=== PATIENT | female | born 1955 | race Caucasian/White ===

== ENCOUNTER 2022-01-17 11:43 | Outpatient (CLI) | payer MEDICARE, SELFPAY ==
--- NOTE | 2022-01-17 13:46 | W.ANESCHARGE ---
Anesthesia Charges Start Date/Time Anesthesia Start Date: 01/17/22 Anesthesia Start Time: 12:45 Stop Date/Time Anesthesia Stop Date: 01/17/22 Anesthesia Stop Time: 13:40 Summary Emergency: No
== END 2022-01-17 11:44 | disposition home or self-care (01) ==
LOC: OP CLINIC 11:46
PROVIDERS: PCP Nurse Practitioner Family; Visit Provider Surgery
DX: Z12.11 Encounter for screening for malignant neoplasm of colon (principal); K63.5 Polyp of colon; K64.8 Other hemorrhoids; Z83.71 Family history of colonic polyps
CPT/HCPCS: 00811; 45385; 88305; J2704

== ENCOUNTER 2022-10-10 10:52 | Outpatient (CLI) | payer MEDICARE, SELFPAY | END 2022-10-10 10:53 | disposition home or self-care (01) | PROVIDERS: PCP Nurse Practitioner Family; Visit Provider Nurse Practitioner Family | DX: E78.5 Hyperlipidemia, unspecified (principal); E03.9 Hypothyroidism, unspecified; I10 Essential (primary) hypertension | CPT/HCPCS: 80053; 80061; 84443; 85025 ==

== ENCOUNTER 2023-01-10 14:26 | Outpatient (CLI) | payer MEDICARE, SELFPAY ==
--- NOTE | 2023-01-10 14:40 | CRLHL7_ITS ---
For Patients: As a result of the Century Cures Act, medical imaging exams and procedure reports are released immediately into your electronic medical record. You may view this report before your referring provider. If you have questions, please contact your health care provider. BILATERAL SCREENING MAMMOGRAM WITH COMPUTER-AIDED DETECTION AND TOMOSYNTHESIS TECHNIQUE: CC and MLO views were obtained. These mammographic images have been obtained using full-field digital technique. These mammographic images were interpreted with the benefit of computer-aided detection. Breast Tomosynthesis was used in this interpretation. COMPARISON FILM: 06/25/21, 04/18/20, 04/10/18. FINDINGS: There are scattered areas of fibroglandular density IMPRESSION: There is no radiographic evidence for malignancy. ASSESSMENT: BI-RADS Category 1: Negative RECOMMENDATION: Routine screening mammogram in 1 year. A lay language report of this examination will be provided to the patient. Marcial Floyd M.D. Diagnostic Radiologist [email or web address] RIC/Dictated by: Marcial Floyd MD @ 01/13/2023 12:25:00 PM (Electronically Signed)
== END 2023-01-10 14:27 | disposition home or self-care (01) ==
LOC: MAMMO 14:27
PROVIDERS: PCP Nurse Practitioner Family; Visit Provider Nurse Practitioner Family
DX: Z12.31 Encounter for screening mammogram for malignant neoplasm of breast (principal)
CPT/HCPCS: 77063; 77067

== ENCOUNTER 2023-06-18 14:13 | Outpatient (CLI) | payer OTHER, SELFPAY ==
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
--- OUTSIDE RECORDS SUMMARY | 2023-06-18 14:15 | XMS_ITS | Referral Summary ---
Author Name Unknown Organization [facility] Address [address] [place] [address] Care Team Providers Care Agronomy Supervisor Name Role Phone Elsewhere, Pcp Primary Care Provider Unavailabl e Source Comments Patient records contain information from all sites at [facility]. For routine questions regarding patient records, call [phone] during business hours, M-F 8:00 AM - 5:00 PM Central Time. Record requests for emergency care only can be directed to [phone] at any time.[facility] Encounters Date Type Department Care Team Description 05/16/2023 11:11 AM MARKETING DATABASE ANALYST - 05/16/2023 2:39 PM [facility] Emergency [facility] Emergency Department [address] [place] [phone] Sanya Yates M.D. Abdominal Pain (Primary Dx); Constipation Discharge Disposition: Home or Self Care from Last 3 Months Allergies Active Allergy Reactions Criticality Noted Date Comments Penicillins Hives (Reselect Reaction),Rash Medium 02/27/2006 Sulfa (Sulfonamide Antibiotics) GI intolerance 02/27/2006 Vancomycin Anaphylaxis,Hives (Reselect Reaction) High 02/19/2010 Medications Medication Sig Dispensed Refills Start Date End Date Status DULoxetine (CYMBALTA) [address] capsule Take 60 mg by mouth daily. 0 Active levothyroxine (SYNTHROID, LEVOTHROID) 112 mcg tablet Take 112 mcg by mouth every morning before breakfast. 0 Active esomeprazole (NexIUM) [address] capsule Take 20 mg by mouth every morning before breakfast. 0 Active gabapentin (NEURONTIN) 100 mg capsule Take 100 mg by mouth daily. 0 Active gabapentin (NEURONTIN) 100 mg capsule Take 300 mg by mouth at bedtime. 0 Active amitriptyline (ELAVIL) 50 mg tablet Take 50 mg by mouth at bedtime. 0 Active verapamiL (VERELAN) 180 mg 24 hr capsule Take 180 mg by mouth daily. 0 Active linaCLOtide (LINZESS) 145 mcg capsule Take 145 mcg by mouth every morning before breakfast. 0 Active acetaminophen (TYLENOL 8 HR) 650 mg ER tablet Take 1,300 mg by mouth every 8 (eight) hours. 0 Active Active Problems No known active problems Social History Tobacco Use Types Packs/Day Years Used Date Smoking Tobacco: Never Smokeless Tobacco: Never Alcohol Use Standard Drinks/Week Comments Yes 0 (1 standard drink = 0.6 oz pur e alcohol) 1-2 a year Nutrition Answer Date Recorded Nutrition: EVOO Fat Source Unknown 04/29 Nutrition: Servings of Fruits/Vegetables per Day Not on file 04/29/2020 Dental Answer Date Recorded Dental: Regular Dentist Unknown 04/29/19 21 Sex and Gender Information Value Date Recorded Sex Assigned at Not on file Gender Identity Not on file Sexual Orientation Not on file Last Filed Vital Signs Vital Sign Reading Time Taken Comments Blood Pressure 130/65 05/16/2023 2:30 PM MARKETING DATABASE ANALYST Pulse 66 05/16/2023 2:30 PM MARKETING DATABASE ANALYST Temperature 36.4 ??C (97.5 ??F) 05/16/2023 2:30 PM CS T Respiratory Rate 18 05/16/2023 2:30 PM MARKETING DATABASE ANALYST Oxygen Saturation 96% 05/16/2023 2:30 PM MARKETING DATABASE ANALYST Inhaled Oxygen Concentration - - Weight 91.3 kg (201 lb 4.5 oz) 05/16/2023 11:12 AM MARKETING DATABASE ANALYST Height 157.7 cm (5' 2.09) 11/13/2020 4:35 PM CD T Body Mass Index 36.71 11/13/2020 4:35 PM CDT Plan of Treatment Upcoming Encounters Date Type Department Care Team (Late st Contact Info) Description 06/23/2023 5:45 PM CDT Appointment Department of Radiology, [facility], in [place], [place] [address] [place] [address] Mahnaz Rivera P.A. [address] [address] [place] [phone] Procedures Procedure Name Priority Date/Time Associated Diagnosis Comments TROPONIN T, 2H/6H, 5TH GEN, P Timed 05/16/2023 1:39 PM MARKETING DATABASE ANALYST CT ABDOMEN PELVIS WITH IV CONTRAST RAD - Semiurgent (Fast; most ED patients; some inpatients) 05/16/2023 1:25 PM MARKETING DATABASE ANALYST TROPONIN T, BASELINE, 5TH GEN, P STAT 05/16/2023 11:34 AM MARKETING DATABASE ANALYST THYROID-STIMULATIN G HORMONE-SENSITIVE (S-TSH) STAT 05/16/2023 11:34 AM MARKETING DATABASE ANALYST PROTHROMBIN TIME (PT), P STAT 05/16/2023 11:34 AM MARKETING DATABASE ANALYST LIPASE, S/P STAT 05/16/2023 11:34 AM MARKETING DATABASE ANALYST LACTATE, B/P STAT 05/16/2023 11:34 AM MARKETING DATABASE ANALYST HEPATIC FUNCTION PANEL, S STAT 05/16/2023 11:34 AM MARKETING DATABASE ANALYST BASIC METABOLIC PANEL, S/P STAT 05/16/2023 11:34 AM MARKETING DATABASE ANALYST CBC WITH DIFFERENTIAL, B STAT 05/16/2023 11:34 AM MARKETING DATABASE ANALYST ECG STAT 05/16/2023 11:21 AM MARKETING DATABASE ANALYST from Last 3 Months Results * (ABNORMAL) Troponin T, 2h/6h, 5th Gen (05/16/2023 1:39 PM MARKETING DATABASE ANALYST) Troponin T, 2 hr, 5th gen 11(H) <=10 ng/L 05/16/2023 2:08 PM MARKETING DATABASE ANALYST STMA 2H Delta 0 ng/L 05/16/2023 2:08 PM MARKETING DATABASE ANALYST STMA 2H Delta Interp Not Changing 05/16/2023 2:08 PM MARKETING DATABASE ANALYST STMA Troponin T, 6 hr, 5th gen CANCELED ng/L 05/16/2023 2:08 PM MARKETING DATABASE ANALYST STMA Comment:Result canceled by t he ancillary. 6H Delta CANCELED ng/L 05/16/2023 1:59 PM MARKETING DATABASE ANALYST STMA Comment:Result canceled by t darling ancillary. 6H Delta % CANCELED % 05/16/2023 1:59 PM MARKETING DATABASE ANALYST STMA Comment:Result canceled by t darling ancillary. Blood (Blood, Venous) 05/16/2023 1:39 PM MARKETING DATABASE ANALYST 05/16/2023 1:43 PM MARKETING DATABASE ANALYST Narrative [facility] - 05/16/2023 2:08 PM MARKETING DATABASE ANALYST Specimen Information: Specimen ID: [id number] Specimen Type: Blood Specimen Collection Start Date: 05/16/2023 ??1:39 PM Specimen Received Date: 05/16/2023 ??1:43 PM Specimen ID: [id number] Specimen Type: Blood Specimen Collection Start Date: 05/16/2023 ??2:08 PM Specimen Received Date: 05/16/2023 ??2:08 PM Sanya Yates M.D. LAB BLOOD TROPONIN [facility] [address] [place] [address], [facility] [address] [place] [address] * CT Abdomen Pelvis with IV Contrast (05/16/2023 1:25 PM MARKETING DATABASE ANALYST) Anatomical Region Laterality Modality Abdomen, Pelvis, Abdominal R ST LOS, Abdominal ARZ LOS, Abdominal FLA LOS N/A Computed Tomograp hy, Computed Tomography 05/16/2023 1:23 PM MARKETING DATABASE ANALYST Impressions 05/16/2023 1:46 PM MARKETING DATABASE ANALYST No acute findings in the abdomen or pelvis. Narrative 05/16/2023 1:46 PM MARKETING DATABASE ANALYST EXAM: ??CT ABDOMEN PELVIS WITH IV CONTRAST COMPARISON: ??CT abdomen/pelvis from 11/13/2020 FINDINGS: ?? Cholecystectomy. Stable small 3 mm nonobstructing stone in the inferior pole of the left kidney. No hydronephrosis. Tiny esophageal hiatal hernia. Moderately increased colonic fecal burden. Degenerative changes of the spine. Mild bibasilar subsegmental atelectasis. Decreased size of a 5 mm pulmonary nodule in the left lower lobe (3/6), previously 6 mm. Stable other tiny sub-3 mm nodule in the right lower lobe (3/5). Calcified pulmonary granulomas. Procedure Note Jere Valencia M.D. - 05/16/2023 EXAM: CT ABDOMEN PELVIS WITH IV CONTRAST COMPARISON: CT abdomen/pelvis from 11/13/2020 FINDINGS: Cholecystectomy. Stable small 3 mm nonobstructing stone in the inferiorpole of the left kidney. No hydronephrosis. Tiny esophageal hiatal hernia.Moderately increased colonic fecal burden. Degenerative changes of thespine. Mild bibasilar subsegmental atelectasis. Decreased size of a 5 mmpulmonary nodule in the left lower lobe (3/6), previously 6 mm. Stableother tiny sub-3 mm nodule in the right lower lobe (3/5). Calcifiedpulmonary granulomas. IMPRESSION: No acute findings in the abdomen or pelvis. Stacy Guzman P.A.-C., M.S. IMG CT PROCED URES * (ABNORMAL) Troponin T, Baseline, 5th gen (05/16/2023 11:34 AM MARKETING DATABASE ANALYST) [facility] Troponin T, Baseline, 5th gen 11(H) <=10 ng/L 05/16/2023 12:53 PM MARKETING DATABASE ANALYST [facility] Blood (Blood, Venous) 05/16/2023 11:34 AM MARKETING DATABASE ANALYST 05/16/2023 12:32 PM MARKETING DATABASE ANALYST Sanya Yates M.D. LAB BLOOD TROPONIN [facility] [address] [place] [address], [facility] [address] [place] [address] * Hepatic Function Panel (05/16/2023 11:34 AM MARKETING DATABASE ANALYST) [facility] Bilirubin, Total, S 0.4 0.0 - 1.2 mg/dL 05/16/2023 12:43 PM MARKETING DATABASE ANALYST DTL Bilirubin, Direct, S CANCELED mg/dL 10/2023 12:45 PM MARKETING DATABASE ANALYST DTL Comment: Specimen was hemolyzed. Result canceled by the ancillary. Aspartate Aminotransferase (AST), S CANCELED U/L 05/16/2023 12:46 PM MARKETING DATABASE ANALYST DTL Comment: Specimen was hemolyzed. Result canceled by the ancillary. Alanine Aminotransferase (ALT), S 15 7 - 45 U/L 05/16/2023 12:43 PM MARKETING DATABASE ANALYST DTL Alkaline Phosphatase, S 64 35 - 104 U/L 05/16/2023 12:43 PM MARKETING DATABASE ANALYST DTL Albumin, S 4.3 3.5 - 5.0 g/dL 05/16/2023 12:43 PM MARKETING DATABASE ANALYST DTL Protein, Total, S 6.4 6.3 - 7.9 g/dL 05/16/2023 12:43 PM MARKETING DATABASE ANALYST DTL Blood (Blood, Venous) 05/16/2023 11:34 AM MARKETING DATABASE ANALYST 05/16/2023 12:00 PM MARKETING DATABASE ANALYST Stacy Guzman P.A.-C. M.S. LAB BLOOD ADD -ON [address] [place] [address] * Prothrombin Time (PT) (05/16/2023 11:34 AM MARKETING DATABASE ANALYST) Prothrombin Time, P 10.3 9.4 - 12.5 sec 05/16/2023 11:47 AM MARKETING DATABASE ANALYST [facility] INR 0.9 0.9 - 1.1 05/16/2023 11:47 AM MARKETING DATABASE ANALYST [facility] Comment: ----ADDITIONAL INFORMATION---- Standard intensity warfarin therapeutic range: 2.0 to 3.0 ?? High intensity warfarin therapeutic range: 2.5 to 3.5 Blood (Blood, Venous) 05/16/2023 11:34 AM MARKETING DATABASE ANALYST 05/16/2023 11:39 AM MARKETING DATABASE ANALYST Stacy Guzman P.A.-C. M.S. LAB BLOOD ADD -ON [facility] [address] [place] [address], [facility] STMA [facility] [address] [place] [address] * CBC with Differential, Blood (05/16/2023 11:34 AM MARKETING DATABASE ANALYST) Hemoglobin 13.7 11.6 - 15.0 g/dL 05/16/2023 11:41 AM MARKETING DATABASE ANALYST ST[facility] Hematocrit 42.4 35.5 - 44.9 % 05/16/2023 11:41 AM MARKETING DATABASE ANALYST [facility] Erythrocytes 4.60 3.92 - 5.13 x10(12)/L 05/16/2023 11:41 AM MARKETING DATABASE ANALYST [facility] MCV 92.2 78.2 - 97.9 fL 05/16/2023 11:41 AM MARKETING DATABASE ANALYST [facility] RBC Distrib Width 12.5 12.2 - 16.1 % 05/16/2023 11:41 AM MARKETING DATABASE ANALYST [facility] Platelet Count 243 157 - 371 x10(9)/L 05/16/2023 11:41 AM MARKETING DATABASE ANALYST [facility] Leukocytes 5.6 3.4 - 9.6 x10(9)/L 05/16/2023 11:41 AM MARKETING DATABASE ANALYST [facility] Neutrophils 3.05 1.56 - 6.45 x10(9)/L 05/16/2023 11:41 AM MARKETING DATABASE ANALYST [facility] Lymphocytes 2.06 0.95 - 3.07 x10(9)/L 05/16/2023 11:41 AM MARKETING DATABASE ANALYST [facility] Monocytes 0.30 0.26 - 0.81 x10(9)/L 05/16/2023 11:41 AM MARKETING DATABASE ANALYST [facility] Eosinophils 0.11 0.03 - 0.48 x10(9)/L 05/16/2023 11:41 AM MARKETING DATABASE ANALYST [facility] Basophils 0.05 0.01 - 0.08 x10(9)/L 05/16/2023 11:41 AM MARKETING DATABASE ANALYST [facility] Blood (Blood, Venous) 05/16/2023 11:34 AM MARKETING DATABASE ANALYST 05/16/2023 11:39 AM MARKETING DATABASE ANALYST Stacy Guzman P.A.-C. M.S. LAB BLOOD ADD -ON [facility] [address] [place] [address], [facility] [address] [place], [place] [phone] [place] [address] [address] [place] [address] * S-TSH (Thyroid-Stimulating Hormone - Sensitive) (05/16/2023 11:34 AM MARKETING DATABASE ANALYST) Pathologist [facility] TSH, Sensitive 2.7 0.3 - 4.2 mIU/L 05/16/2023 12:43 PM MARKETING DATABASE ANALYST DTL Blood (Blood, Venous) 05/16/2023 11:34 AM MARKETING DATABASE ANALYST 05/16/2023 12:00 PM MARKETING DATABASE ANALYST Stacy Guzman P.A.-C., M.S. LAB BLOOD ADD -ON Performing Organization Address City/[facility]/ZIP Co de Phone Number [facility] [address] [place] [address], [facility] [address] [place] [address] * Lipase (05/16/2023 11:34 AM MARKETING DATABASE ANALYST) Pathologist [facility] Lipase, S 19 13 - 60 U/L 05/16/2023 12:43 PM MARKETING DATABASE ANALYST DTL Blood (Blood, Venous) 05/16/2023 11:34 AM MARKETING DATABASE ANALYST 05/16/2023 12:00 PM MARKETING DATABASE ANALYST Stacy Guzman P.A.-C., M.S. LAB BLOOD ADD -ON [facility] [address] [place] [address], [facility] [address] [place] [address] * Lactate (05/16/2023 11:34 AM MARKETING DATABASE ANALYST) Lactate, P 0.9 0.5 - 2.2 mmol/L 05/16/2023 11:56 AM MARKETING DATABASE ANALYST ST[facility] Blood (Blood, Venous) 05/16/2023 11:34 AM MARKETING DATABASE ANALYST 05/16/2023 11:39 AM MARKETING DATABASE ANALYST Stacy Guzman P.A.-C. M.S. LAB BLOOD NON ADD-ON Performing Organization Address City/State/[facility] Co de Phone Number [facility] [address] [place] [address], [facility] STMA [facility] [address] [place] [address] * Basic Metabolic Panel (05/16/2023 11:34 AM MARKETING DATABASE ANALYST) Potassium, P 4.4 3.6 - 5.2 mmol/L 05/16/2023 12:00 PM MARKETING DATABASE ANALYST STMA Sodium, P 139 135 - 145 mmol/L 05/16/2023 12:00 PM MARKETING DATABASE ANALYST ST[facility] Chloride, P 104 98 - 107 mmol/L 05/16/2023 12:00 PM MARKETING DATABASE ANALYST ST[facility] Bicarbonate, P 27 22 - 29 mmol/L 05/16/2023 12:00 PM MARKETING DATABASE ANALYST ST[facility] Anion Gap, P 8 7 - 15 05/16/2023 12:00 PM MARKETING DATABASE ANALYST [facility] BUN (Blood Urea Nitrogen), P 19 6 - 21 mg/dL 05/16/2023 12:00 PM MARKETING DATABASE ANALYST [facility] Creatinine 0.86 0.59 - 1.04 mg/dL 05/16/2023 12:00 PM MARKETING DATABASE ANALYST [facility] Estimated GFR (eGFR) 74 >=60 mL/min/BSA 05/16/2023 12:00 PM MARKETING DATABASE ANALYST [facility] Comment: Estimated GFR calculated using the 2020 CKD_EPI creatinine equation. Calcium, Total, P 9.4 8.8 - 10.2 mg/dL 05/16/2023 12:00 PM MARKETING DATABASE ANALYST ST[facility] Glucose, P 91 70 - 140 mg/dL 05/16/2023 12:00 PM MARKETING DATABASE ANALYST [facility] Blood (Blood, Venous) 05/16/2023 11:34 AM MARKETING DATABASE ANALYST 05/16/2023 11:39 AM MARKETING DATABASE ANALYST Stacy Guzman P.A.-C., M.S. LAB BLOOD ADD -ON Performing Organization Address City/State/[facility] Co de Phone Number [facility] [address] [place] [address], [place] STMA [facility] [address] [place] [address] * ECG 12 Lead (05/16/2023 11:21 AM MARKETING DATABASE ANALYST) Ventricular Rate ECG/Min 65 BPM MUSE TN Interval 156 ms MUSE QRSD Interval 88 ms MUSE QT Interval 414 ms MUSE QTC Interval 430 ms MUSE P [place] 24 degrees MUSE R [place] -37 degrees MUSE T Wave [place] 37 degrees MUSE 05/16/2023 11:2 1 AM MARKETING DATABASE ANALYST 05/16/2023 11:33 AM MARKETING DATABASE ANALYST Impressions MUSE - 05/16/2023 11:33 AM MARKETING DATABASE ANALYST Normal sinus rhythm Left axis deviation Minimal voltage criteria for LVH, may be normal variant When compared with ECG of 24-DEC-2019 21:08, Vent. rate has decreased BY ??49 BPM Reviewed by ANA Alcantara Narrative Procedure Note Armin Mayen M.B.B.SGris - 05/16/2023 IMPRESSION: Normal sinus rhythm Left axis deviation Minimal voltage criteria for LVH, may be normal variant When compared with ECG of 24-DEC-2019 21:08, Vent. rate has decreased BY 49 BPM Reviewed by ANA Alcantara Stacy Guzman P.A.-C., M.S. ECG ORDERABLE S Performing Organization Address City/State/[facility] Co de Phone Number MUSE NA from Last 3 Months Care Teams Agronomy Supervisor Relationship Specialty Start Date End Date Elsewhere, Pcp PCP - General Internal Medicine 05/16/23
--- OUTSIDE RECORDS SUMMARY | 2023-06-18 14:15 | XMS_ITS ---
Author Name Unknown Organization [facility] Address [address] [place] [address] Care Team Providers Care Veneer Sawyer Name Role Phone Unavailable Unavailable Unavailable Surgery Details Not on file Complications Check Surgery Details section. Procedure Estimated Blood Loss Check Surgery Details section. Procedure Findings Check Surgery Details section. Procedure Specimens Taken Check Surgery Details section.
--- OUTSIDE RECORDS SUMMARY | 2023-06-18 14:15 | XMS_ITS | Encounter Summary ---
Author Name Unknown Organization [facility] Address [address] [place] [address] Care Team Providers Care Reel Assembler Name Role Phone Elsewhere, Pcp Primary Care Provider Unavailabl e Reason for Visit * Reason Comments Abdominal Pain Encounter Details Date Type Department Care Team (Late st Contact Info) Description 05/16/2023 11:11 AM MOLD POLISHER - 05/16/2023 2:39 PM MOLD POLISHER Emergency [facility] Emergency Department [address] [place] [address] Sanya Yates M.D. [address] [place] [address] Abdominal Pain (Primary Dx); Constipation Discharge Disposition: Home or Self Care Social History Tobacco Use Types Packs/Day Years [...] on file Sexual Orientation Not on file documented as of this encounter Last Filed Vital Signs Vital Sign Reading Time Taken Comments Blood Pressure 130/65 05/16/2023 2:30 PM MOLD POLISHER Pulse 66 05/16/2023 2:30 PM MOLD POLISHER Temperature 36.4 ??C (97.5 ??F) 05/16/2023 2:30 PM CS T Respiratory Rate 18 05/16/2023 2:30 PM MOLD POLISHER Oxygen Saturation 96% 05/16/2023 2:30 PM MOLD POLISHER Inhaled Oxygen Concentration - - Weight 91.3 kg (201 lb 4.5 oz) 05/16/2023 11:12 AM MOLD POLISHER Height - - Body Mass Index 36.71 11/13/2020 4:35 PM CDT documented in this encounter Discharge Instructions * Discharge Instructions* Sanya Yates M.D. - 05/16/2023 2:17 PM MOLD POLISHER 1. Hydrate well. Avoid caffeinated beverages if possible. 2. Continue your bowel regimen. You may add additional [id number] aids. 3. If you have not had a bowel movement by Friday reach out to your primary provider for additionalguidance on constipation. 4. Return immediately for any severe pain, vomiting, or any other severe symptoms. POLISHER * Attachments The following attachments cannot be sent through Care Everywhere. * Abdominal Pain Adult (Malaysian) * Constipation Adult (Malaysian) documented in this encounter Medications at Time of Discharge Medication Sig Dispensed Refills Start Date End Date DULoxetine (CYMBALTA) [address] capsule Take 60 mg by mouth daily. 0 esomeprazole (NexIUM) [address] capsule Take 20 mg by mouth every morning before breakfast. 0 gabapentin (NEURONTIN) 100 mg capsule Take 100 mg by mouth daily. 0 gabapentin (NEURONTIN) 100 mg capsule Take 300 mg by mouth at bedtime. 0 levothyroxine (SYNTHROID, LEVOTHROID) 112 mcg tablet Take 112 mcg by mouth every morning before breakfast. 0 linaCLOtide (LINZESS) 145 mcg capsule Take 145 mcg by mouth every morning before breakfast. 0 verapamiL (VERELAN) 180 mg 24 hr capsule Take 180 mg by mouth daily. 0 acetaminophen (TYLENOL 8 HR) 650 mg ER tablet Take 1,300 mg by mouth every 8 (eight) hours. 0 amitriptyline (ELAVIL) 50 mg tablet Take 50 mg by mouth at bedtime. 0 documented as of this encounter Progress Notes * Stacy Guzman P.A.-C., M.S. - 05/16/2023 11:19 AM CST CC/HPI/Pertinent ROS: Patient is a 67 y.o. female with past history of IBS, hyperlipidemia, hypertension, hypothyroidism,cholecystectomy, presents to the emergency department today for evaluation of abdominal pain. Patient notes diffuse abdominal pain. She reports constipation with very small bowel movements despite multiple medications and suppositories for about 2 weeks. She notes associated dizziness and nausea but no vomiting. Brief PE: BP 136/73 (BP Location: Right arm, Patient Position: Sitting) Pulse 81 Temp 36.4 ??C (Oral) Resp 16 Wt 91.3 kg SpO2 97% BMI 36.71 kg/m?? Gen: well appearing, NAD A&O X3 Generalized abdominal tenderness with mild distension Normal gait, no obvious focal deficits Assessment/Plan: 67 y.o. female presenting to the ED for evaluation of abdominal pain, constipation. Plan: EKG, CT abdomen/pelvis with contrast, and labs ordered, IV access will be obtained and patient will be kept NPO Stacy Guzman P.A.-C., M.S. 05/16/23 1121 POLISHER documented in this encounter ED Notes * Sanya Yates M.D. - 05/16/2023 12:48 PM CST SUBJECTIVE CHIEF COMPLAINT/REASON FOR VISIT Abdominal Pain HISTORY OF PRESENT ILLNESS 67-year-old female status post cholecystectomy and breast reduction with a history of irritable bowel presents with abdominal pain x3 days. This pain came on after 8 days without a bowel movement. She reports a bloated feeling and pain across her upper abdomen. She has had nausea but no vomiting. She has been able to eat and drink. She has had no urinary symptoms. She denies chest pain or shortness of breath. No fevers chills or sweats. No urinary symptoms. REVIEW OF SYSTEMS Constitutional: Negative for chills and fever. Respiratory: Negative for chest tightness, orthopnea and shortness of breath. Gastrointestinal: Positive for abdominal distention, abdominal pain, constipation and nausea. Negative for blood in stool, diarrhea, rectal pain and vomiting. Genitourinary: Negative for dysuria, flank pain and pelvic pain. Musculoskeletal: Negative for extremity pain. Neurological: Negative for dizziness and numbness. OBJECTIVE Initial Vitals Temperature 05/16/23 1113 36.4 ??C Pulse Rate 05/16/23 1113 81 Heart Rate -- Resp Rate 05/16/23 1113 16 Blood Pressure 05/16/23 1113 136/73 SpO2 05/16/23 1113 97 % Pain Score 05/16/23 1116 7 PHYSICAL EXAMINATION Constitutional: Nursing note and vitals reviewed. No distress. HENT: Mouth/Throat: Oropharynx is clear and moist. Mucous membranes are moist. Eyes: Conjunctivae and EOM are normal. Pupils are equal, round, and reactive to light. Neck: Neck supple. Cardiovascular: Normal rate, regular rhythm and normal heart sounds. Exam reveals no gallop and no friction rub. Pulses are palpable. No murmur heard. Pulmonary/Chest: Effort normal and breath sounds normal. There is normal air entry. No respiratory distress. Abdominal: Soft. Normal appearance and bowel sounds are normal. exhibits distension.exhibits no mass. There is no abdominal tenderness. There is no rigidity, no rebound, no guarding and no CVA tenderness. No hernia. Musculoskeletal: General: No deformity or edema. Cervical back: Normal range of motion and neck supple. Neurological: Alert and oriented to person, place, and time. Skin: Skin is warm. No rash noted. Psychiatric: She has a normal mood and affect. ASSESSMENT/PLAN Assessment and Plan Impression: 1. Abdominal pain 2. Constipation. Differential includes symptomatic cholelithiasis, acute cholecystitis, choledocholithiasis, pancreatitis, gastritis, reflux, colitis, hepatitis, bowel obstruction, constipation, diverticulitis, appendicitis, ACS, among others. ECG shows no acute ischemic changes. This is personally reviewed by me and is unchanged from prior. Basic labs show normal renal function, normal electrolytes and a normal CBC. Lipase lactate an LFTs are normal. Troponin pending. Given the duration of her symptoms we will obtain CT to rule out a more ominous cause than constipation alone. If her CT has no acute findings we will address her constipation with adjustment in her homegoing regimen.. Addendum: CT shows no acute findings. She does have some increased stool burden particularly in hertransverse colon. Labs satisfactory. Delta troponin negative. She will increase her hydration, avoid dehydration and add additional [id number] aids to her regimen for constipation. If she has not having success by early next week she will reach out to her primary provider for additional guidance. Plan of care, indications for immediate return, and plans for follow-up all discussed. All questions answered. Final Diagnoses: as of 05/17/23 0744 Abdominal Pain Constipation Sanya Yates M.D. 05/17/23 0745 POLISHER * Fabi Todd R.N. - 05/16/2023 11:15 AM CST Patient presents to the ED with diffuse abdominal pain that has been present x 8 days. History of constipation, she is have small BMs, but last normal BM was approximately 2 weeks ago. Associated nausea. Fabi Todd R.N. 05/16/23 1115 POLISHER documented in this encounter Plan of Treatment Upcoming Encounters Date Type Department Care Team (Late st Contact Info) Description 06/23/2023 5:45 PM CDT Appointment Department of Radiology, [facility], in [place], [place] [address] [place] [address] Mahnaz Rivera P.A. [address] [address] [place] [address] documented as of this encounter Procedures Procedure Name Priority Date/Time Associated Diagnosis Comments TROPONIN T, 2H/6H, 5TH GEN, P Timed 05/16/2023 1:[address] ABDOMEN PELVIS WITH IV CONTRAST RAD - Semiurgent (Fast; most ED patients; some inpatients) 05/16/2023 1:25 PM MOLD POLISHER TROPONIN T, BASELINE, 5TH GEN, P STAT 05/16/2023 11:34 AM MOLD POLISHER HEPATIC FUNCTION PANEL, S STAT 05/16/2023 11:34 AM MOLD POLISHER PROTHROMBIN TIME (PT), P STAT 05/16/2023 11:34 AM MOLD POLISHER CBC WITH DIFFERENTIAL, B STAT 05/16/2023 11:34 AM MOLD POLISHER THYROID-STIMULATIN G HORMONE-SENSITIVE (S-TSH) STAT 05/16/2023 11:34 AM MOLD POLISHER LIPASE, S/P STAT 05/16/2023 11:34 AM MOLD POLISHER LACTATE, B/P STAT 05/16/2023 11:34 AM MOLD POLISHER BASIC METABOLIC PANEL, S/P STAT 05/16/2023 11:34 AM MOLD POLISHER ECG STAT 05/16/2023 11:21 AM MOLD POLISHER documented in this encounter Results * (ABNORMAL) Troponin T, 2h/6h, 5th Gen (05/16/2023 1:39 PM MOLD POLISHER) Troponin T, 2 hr, 5th gen 11(H) <=10 ng/L 05/16/2023 2:08 PM MOLD POLISHER STMA 2H Delta 0 ng/L 05/16/2023 2:08 PM MOLD POLISHER STMA 2H Delta Interp Not Changing 05/16/2023 2:08 PM MOLD POLISHER STMA Troponin T, 6 hr, 5th gen CANCELED ng/L 05/16/2023 2:08 PM MOLD POLISHER STMA Comment:Result canceled by t he ancillary. 6H Delta CANCELED ng/L 05/16/2023 1:59 PM MOLD POLISHER STMA Comment:Result canceled by t he ancillary. 6H Delta % CANCELED % 05/16/2023 1:59 PM MOLD POLISHER STMA Comment:Result canceled by t he ancillary. Blood (Blood, Venous) 05/16/2023 1:39 PM MOLD POLISHER 05/16/2023 1:43 PM MOLD POLISHER Narrative [facility] - 05/16/2023 2:08 PM MOLD POLISHER Specimen Information: Specimen ID: [id number] Specimen Type: Blood Specimen Collection Start Date: 05/16/2023 ??1:39 PM Specimen Received Date: 05/16/2023 ??1:43 PM Specimen ID: [id number] Specimen Type: Blood Specimen Collection Start Date: 05/16/2023 ??2:08 PM Specimen Received Date: 05/16/2023 ??2:08 PM Sanya Yates M.D. LAB BLOOD TROPONIN [facility] [address] [place] [address], [facility] [address] [place] [address] * CT Abdomen Pelvis with IV Contrast (05/16/2023 1:25 PM MOLD POLISHER) Anatomical Region Laterality Modality Abdomen, Pelvis, Abdominal R ST LOS, Abdominal ARZ LOS, Abdominal FLA LOS N/A Computed Tomograp hy, Computed Tomography 05/16/2023 1:23 PM MOLD POLISHER Impressions 05/16/2023 1:46 PM MOLD POLISHER No acute findings in the abdomen or pelvis. Narrative 05/16/2023 1:46 PM MOLD POLISHER EXAM: ??CT ABDOMEN PELVIS WITH IV CONTRAST [...] T, Baseline, 5th gen (05/16/2023 11:34 AM MOLD POLISHER) [facility] Troponin T, Baseline, 5th gen 11(H) <=10 ng/L 05/16/2023 12:53 PM MOLD POLISHER [facility] Blood (Blood, Venous) 05/16/2023 11:34 AM MOLD POLISHER 05/16/2023 12:32 PM MOLD POLISHER Sanya Yates M.D. LAB BLOOD TROPONIN Performing Organization Address City/[facility]/ZIP Co de Phone Number [facility] [address] STMA [facility] [address] [place] [address] * S-TSH (Thyroid-Stimulating Hormone - Sensitive) (05/16/2023 11:34 AM MOLD POLISHER) [facility] TSH, Sensitive 2.7 0.3 - 4.2 mIU/L 05/16/2023 12:43 PM MOLD POLISHER DTL Blood (Blood, Venous) 05/16/2023 11:34 AM MOLD POLISHER 05/16/2023 12:00 PM MOLD POLISHER Stacy Guzman P.A.-C., M.S. LAB BLOOD ADD -ON Performing Organization Address City/[facility]/ZIP Co de Phone Number [facility] [address] DTL [facility] [address] [place] [address] * Prothrombin Time (PT) (05/16/2023 11:34 AM MOLD POLISHER) Prothrombin Time, P 10.3 9.4 - 12.5 sec 05/16/2023 11:47 AM MOLD POLISHER [facility] INR 0.9 0.9 - 1.1 05/16/2023 11:47 AM MOLD POLISHER [facility] Comment: ----ADDITIONAL INFORMATION---- Standard intensity warfarin therapeutic range: 2.0 to 3.0 ?? High intensity warfarin therapeutic range: 2.5 to 3.5 Blood (Blood, Venous) 05/16/2023 11:34 AM MOLD POLISHER 05/16/2023 11:39 AM MOLD POLISHER Stacy Guzman P.A.-C., M.S. LAB BLOOD ADD -ON [facility] [address] [place] [address] * Lipase (05/16/2023 11:34 AM MOLD POLISHER) Pathologist [facility] Lipase, S 19 13 - 60 U/L 05/16/2023 12:43 PM MOLD POLISHER DTL Blood (Blood, Venous) 05/16/2023 11:34 AM MOLD POLISHER 05/16/2023 12:00 PM MOLD POLISHER Stacy Guzman P.A.-C., M.S. LAB BLOOD ADD -ON Performing Organization Address City/[facility]/ZIP Co de Phone Number [facility] [address] DTL [facility] [address] [place] [address] * Lactate (05/16/2023 11:34 AM MOLD POLISHER) Lactate, P 0.9 0.5 - 2.2 mmol/L 05/16/2023 11:56 AM MOLD POLISHER [facility] Blood (Blood, Venous) 05/16/2023 11:34 AM MOLD POLISHER 05/16/2023 11:39 AM MOLD POLISHER Stacy Guzman P.A.-C., M.S. LAB BLOOD NON ADD-ON [facility] [address] [place] [address], [facility] STMA [facility] [address] [place] [address] * Hepatic Function Panel (05/16/2023 11:34 AM MOLD POLISHER) Bilirubin, Total, S 0.4 0.0 - 1.2 mg/dL 05/16/2023 12:43 PM MOLD POLISHER DTL Bilirubin, Direct, S CANCELED mg/dL 10/2023 12:45 PM MOLD POLISHER DTL Comment: Specimen was hemolyzed. Result canceled by the ancillary. Aspartate Aminotransferase (AST), S CANCELED U/L 05/16/2023 12:46 PM MOLD POLISHER DTL Comment: Specimen was hemolyzed. Result canceled by the ancillary. Alanine Aminotransferase (ALT), S 15 7 - 45 U/L 05/16/2023 12:43 PM MOLD POLISHER DTL Alkaline Phosphatase, S 64 35 - 104 U/L 05/16/2023 12:43 PM MOLD POLISHER DTL Albumin, S 4.3 3.5 - 5.0 g/dL 05/16/2023 12:43 PM MOLD POLISHER DTL Protein, Total, S 6.4 6.3 - 7.9 g/dL 05/16/2023 12:43 PM MOLD POLISHER DTL Blood (Blood, Venous) 05/16/2023 11:34 AM MOLD POLISHER 05/16/2023 12:00 PM MOLD POLISHER Stacy Guzman P.A.-C., M.S. LAB BLOOD ADD -ON [facility] [address] [place] [address], [facility] DTL [facility] [address] [place] [address] * Basic Metabolic Panel (05/16/2023 11:34 AM MOLD POLISHER) Pathologist [facility] Potassium, P 4.4 3.6 - 5.2 mmol/L 05/16/2023 12:00 PM MOLD POLISHER STMA Sodium, P 139 135 - 145 mmol/L 05/16/2023 12:00 PM MOLD POLISHER STMA Chloride, P 104 98 - 107 mmol/L 05/16/2023 12:00 PM MOLD POLISHER STMA Bicarbonate, P 27 22 - 29 mmol/L 05/16/2023 12:00 PM MOLD POLISHER STMA Anion Gap, P 8 7 - 15 05/16/2023 12:00 PM MOLD POLISHER STMA BUN (Blood Urea Nitrogen), P 19 6 - 21 mg/dL 05/16/2023 12:00 PM MOLD POLISHER STMA Creatinine 0.86 0.59 - 1.04 mg/dL 05/16/2023 12:00 PM MOLD POLISHER STMA Estimated GFR (eGFR) 74 >=60 mL/min/BSA 05/16/2023 12:00 PM MOLD POLISHER STMA Comment: Estimated GFR calculated using the 2020 CKD_EPI creatinine equation. Calcium, Total, P 9.4 8.8 - 10.2 mg/dL 05/16/2023 12:00 PM MOLD POLISHER STMA Glucose, P 91 70 - 140 mg/dL 05/16/2023 12:00 PM MOLD POLISHER STMA Blood (Blood, Venous) 05/16/2023 11:34 AM MOLD POLISHER 05/16/2023 11:39 AM MOLD POLISHER Stacy Guzman P.A.-C., M.S. LAB BLOOD ADD -ON [facility] [address] [place] [address], [facility] [address] [place] [address] * CBC with Differential, Blood (05/16/2023 11:34 AM MOLD POLISHER) Hemoglobin 13.7 11.6 - 15.0 g/dL 05/16/2023 11:41 AM MOLD POLISHER STMA Hematocrit 42.4 35.5 - 44.9 % 05/16/2023 11:41 AM MOLD POLISHER STMA Erythrocytes 4.60 3.92 - 5.13 x10(12)/L 05/16/2023 11:41 AM MOLD POLISHER STMA MCV 92.2 78.2 - 97.9 fL 05/16/2023 11:41 AM MOLD POLISHER STMA RBC Distrib Width 12.5 12.2 - 16.1 % 05/16/2023 11:41 AM MOLD POLISHER STMA Platelet Count 243 157 - 371 x10(9)/L 05/16/2023 11:41 AM MOLD POLISHER STMA Leukocytes 5.6 3.4 - 9.6 x10(9)/L 05/16/2023 11:41 AM MOLD POLISHER STMA Neutrophils 3.05 1.56 - 6.45 x10(9)/L 05/16/2023 11:41 AM MOLD POLISHER DHPM Lymphocytes 2.06 0.95 - 3.07 x10(9)/L 05/16/2023 11:41 AM MOLD POLISHER STMA Monocytes 0.30 0.26 - 0.81 x10(9)/L 05/16/2023 11:41 AM MOLD POLISHER STMA Eosinophils 0.11 0.03 - 0.48 x10(9)/L 05/16/2023 11:41 AM MOLD POLISHER STMA Basophils 0.05 0.01 - 0.08 x10(9)/L 05/16/2023 11:41 AM MOLD POLISHER STMA Blood (Blood, Venous) 05/16/2023 11:34 AM MOLD POLISHER 05/16/2023 11:39 AM MOLD POLISHER Stacy Guzman P.A.-C., M.S. LAB BLOOD ADD -ON [facility] [address] [place] [address], [facility] STMA [facility] [address] [place] [address] [facility] [address] [place] [address] * ECG 12 Lead (05/16/2023 11:21 AM MOLD POLISHER) Ventricular Rate ECG/Min 65 BPM MUSE IN Interval 156 ms MUSE QRSD Interval 88 ms MUSE QT Interval 414 ms MUSE QTC Interval 430 ms MUSE P [place] 24 degrees MUSE R [place] -37 degrees MUSE T Wave [place] 37 degrees MUSE 05/16/2023 11:2 1 AM MOLD POLISHER 05/16/2023 11:33 AM MOLD POLISHER Impressions MUSE - 05/16/2023 11:33 AM MOLD POLISHER Normal sinus rhythm Left axis deviation Minimal voltage criteria for LVH, may be normal variant When compared with ECG of 24-DEC-2019 21:08, Vent. rate has decreased BY ??49 BPM Reviewed by ANA Alcantara Narrative Procedure Note Armin Mayen M.B.BGrisS. - 05/16/2023 IMPRESSION: Normal sinus rhythm Left axis deviation Minimal voltage criteria for LVH, may be normal variant When compared with ECG of 24-DEC-2019 21:08, Vent. rate has decreased BY 49 BPM Reviewed by ANA Alcantara Stacy Scott Megan Leija, M.S. ECG ORDERABLE S MUSE NA documented in this encounter Visit Diagnoses Diagnosis Abdominal Pain- Primary Constipation documented in this encounter Administered Medications Inactive Administered Medications - up to 3 most recent administrations Medication Order MAR Action Action Date Dose Rate Site iohexoL 300 mg iodine/mL solution 1-200 mL (OMNIPAQUE) 1-200 mL, intravenous, Once in imaging, contrast, Starting on Fri05/16/23 at 1318, For 1 dose, Imaging Protocol Orders, Dose per Radiant Medication Guidelines Given 05/16/2023 1:19 PM MOLD POLISHER 140 mL sodium chloride (PF) 0.9 % injection 1-100 mL 1-100 mL, intravenous, Once, On Fri05/16/23 at 1319, For 1 dose, Imaging Protocol Orders, Dose per Radiant Medication Guidelines Given 05/16/2023 1:19 PM MOLD POLISHER 50 mL documented in this encounter Active and Recently Administered Medications Times are shown in MOLD POLISHER. Scheduled Medication Order 05/14/2023 05/15/2023 05/16/2023 sodium chloride (PF) 0.9 % injection 1-100 mL (COMPLETED) 1-100 mL, intravenous, Once, On Fri05/16/23 at 1319, For 1 dose, Imaging Protocol Orders, Dose per Radiant Medication Guidelines 1319 (Given - Provid er: Alexis S Rasmusson, R.N.) PRN Medication Order 05/14/2023 05/15/2023 05/16/2023 iohexoL 300 mg iodine/mL solution 1-200 mL (OMNIPAQUE) (COMPLETED) 1-200 mL, intravenous, Once in imaging, contrast, Starting on Fri05/16/23 at 1318, For 1 dose, Imaging Protocol Orders, Dose per Radiant Medication Guidelines 1319 (Given - Provid er: Alexis Llanos R.N.) documented in this encounter Care Teams Reel Assembler Relationship Specialty Start Date End Date Elsewhere, Pcp PCP - General Internal Medicine 05/16/23 documented as of this encounter
--- OUTSIDE RECORDS SUMMARY | 2023-06-18 14:15 | XMS_ITS | Clinical Summary ---
Author Name Unknown Organization [facility] Address [address] [place] [address] Care Team Providers Care Grain Miller Helper Name Role Phone Elsewhere, Pcp Primary Care Provider Unavailabl e Source Comments Patient records contain information from all sites at [facility]. For routine questions regarding patient records, call [phone] during business hours, M-F 8:00 AM - 5:00 PM Central Time. Record requests for emergency care only can be directed to [phone] at any time.[facility] Allergies Active Allergy Reactions Criticality Noted Date [...] Active Active Problems No known active problems Encounters Date Type Department Care Team Description 05/16/2023 11:11 AM PRODUCTION BROACHER - 05/16/2023 2:39 PM PRODUCTION BROACHER Emergency [facility] Emergency Department [address] [place] [address] Sanya Yates M.D. Abdominal Pain (Primary Dx); Constipation Discharge Disposition: Home or Self Care from Last 3 Months Social History Tobacco Use Types Packs/Day Years [...] Comments Blood Pressure 130/65 05/16/2023 2:30 PM PRODUCTION BROACHER Pulse 66 05/16/2023 2:30 PM PRODUCTION BROACHER Temperature 36.4 ??C (97.5 ??F) 05/16/2023 2:30 PM CS T Respiratory Rate 18 05/16/2023 2:30 PM PRODUCTION BROACHER Oxygen Saturation 96% 05/16/2023 2:30 PM PRODUCTION BROACHER Inhaled Oxygen Concentration - - Weight 91.3 kg (201 lb 4.5 oz) 05/16/2023 11:12 AM PRODUCTION BROACHER Height 157.7 cm (5' 2.09) 11/13/2020 4:35 PM CD T Body Mass Index 36.71 11/13/2020 4:35 PM CDT Plan of Treatment Upcoming Encounters Date Type Department Care Team (Late st Contact Info) Description 06/23/2023 5:45 PM CDT Appointment Department of Radiology, [facility], in [place], [place] [address] [place] [address] Mahnaz Rivera P.A. [address] [address] [place] [phone] Health Maintenance Due Date Last Done Comments Bone Density Scan (Osteoporo sis Screen) 1954 CT Colonography 1954 Cologuard 1955 FIT 1955 Hepatitis C Screening 1955 Zoster Vaccines (1 of 2) 2004 Colonoscopy 09/05/2015 09/04/2005 Colorectal Cancer Screening 09/05/2015 Mammogram 04/18/2021 04/18/2020, 02/0 03/2018, 02/10/2017, Additional history exists Depression Screening (Annual PHQ-2) 03/10/2023 Fall Risk Screen (Annual) 03/10/2023 Thyroid Stimulating Hormone (TSH) test for thyroid function 05/15/2024 05/16/2023, 04/27/2020, 02/02/2019, Additional history exists Fasting Glucose for Diabetes Screening 05/15/2026 05/16/2023, 11/13/2020, 12/24/2019, Additional history exists DTaP,Tdap,and Td Vaccines (3 - Td or Tdap) 02/17/2030 02/18/2020, 04/05/2009 Pneumococcal vaccine (65+ years) Completed 02/18/20 20, 08/08/2014 COVID-19 Vaccine Completed 12/23/2022, , 12/22/2020, Additional history exists Influenza Vaccine Completed 12/23/2022, , 12/03/2021, Additional history exists Procedures Procedure Name Priority Date/Time Associated Diagnosis Comments TROPONIN T, 2H/6H, 5TH GEN, P Timed 05/16/2023 1:[address] ABDOMEN PELVIS WITH IV CONTRAST RAD - Semiurgent (Fast; most ED patients; some inpatients) 05/16/2023 1:25 PM PRODUCTION BROACHER TROPONIN T, BASELINE, 5TH GEN, P STAT 05/16/2023 11:34 AM PRODUCTION BROACHER THYROID-STIMULATIN G HORMONE-SENSITIVE (S-TSH) STAT 05/16/2023 11:34 AM PRODUCTION BROACHER PROTHROMBIN TIME (PT), P STAT 05/16/2023 11:34 AM PRODUCTION BROACHER LIPASE, S/P STAT 05/16/2023 11:34 AM PRODUCTION BROACHER LACTATE, B/P STAT 05/16/2023 11:34 AM PRODUCTION BROACHER HEPATIC FUNCTION PANEL, S STAT 05/16/2023 11:34 AM PRODUCTION BROACHER BASIC METABOLIC PANEL, S/P STAT 05/16/2023 11:34 AM PRODUCTION BROACHER CBC WITH DIFFERENTIAL, B STAT 05/16/2023 11:34 AM PRODUCTION BROACHER ECG STAT 05/16/2023 11:21 AM PRODUCTION BROACHER from Last 3 Months Results * (ABNORMAL) Troponin T, 2h/6h, 5th Gen (05/16/2023 1:39 PM PRODUCTION BROACHER) Troponin T, 2 hr, 5th gen 11(H) <=10 ng/L 05/16/2023 2:08 PM PRODUCTION BROACHER STMA 2H Delta 0 ng/L 05/16/2023 2:08 PM PRODUCTION BROACHER STMA 2H Delta Interp Not Changing 05/16/2023 2:08 PM PRODUCTION BROACHER STMA Troponin T, 6 hr, 5th gen CANCELED ng/L 05/16/2023 2:08 PM PRODUCTION BROACHER STMA Comment:Result canceled by t he ancillary. 6H Delta CANCELED ng/L 05/16/2023 1:59 PM PRODUCTION BROACHER STMA Comment:Result canceled by t he ancillary. 6H Delta % CANCELED % 05/16/2023 1:59 PM PRODUCTION BROACHER STMA Comment:Result canceled by t he ancillary. Blood (Blood, Venous) 05/16/2023 1:39 PM PRODUCTION BROACHER 05/16/2023 1:43 PM PRODUCTION BROACHER Narrative [facility] - 05/16/2023 2:08 PM PRODUCTION BROACHER Specimen Information: Specimen ID: [id number] Specimen Type: Blood Specimen Collection Start Date: 05/16/2023 ??1:39 PM Specimen Received Date: 05/16/2023 ??1:43 PM Specimen ID: [id number] Specimen Type: Blood Specimen Collection Start Date: 05/16/2023 ??2:08 PM Specimen Received Date: 05/16/2023 ??2:08 PM Sanya Yates M.D. LAB BLOOD TROPONIN [facility] [address] [place] [address], [facility] [address] [place] [address] * CT Abdomen Pelvis with IV Contrast (05/16/2023 1:25 PM PRODUCTION BROACHER) Anatomical Region Laterality Modality Abdomen, Pelvis, Abdominal R ST LOS, Abdominal ARZ LOS, Abdominal FLA LOS N/A Computed Tomograp hy, Computed Tomography 05/16/2023 1:23 PM PRODUCTION BROACHER Impressions 05/16/2023 1:46 PM PRODUCTION BROACHER No acute findings in the abdomen or pelvis. Narrative 05/16/2023 1:46 PM PRODUCTION BROACHER EXAM: ??CT ABDOMEN PELVIS WITH IV CONTRAST [...] T, Baseline, 5th gen (05/16/2023 11:34 AM PRODUCTION BROACHER) Pathologist [facility] [place] Troponin T, Baseline, 5th gen 11(H) <=10 ng/L 05/16/2023 12:53 PM PRODUCTION BROACHER STMA Blood (Blood, Venous) 05/16/2023 11:34 AM PRODUCTION BROACHER 05/16/2023 12:32 PM PRODUCTION BROACHER Sanya Yates M.D. LAB BLOOD TROPONIN [facility] [address] [place] [address], [facility] [address] [place] [address] * Hepatic Function Panel (05/16/2023 11:34 AM PRODUCTION BROACHER) Pathologist [facility] [place] Bilirubin, Total, S 0.4 0.0 - 1.2 mg/dL 05/16/2023 12:43 PM PRODUCTION BROACHER DTL Bilirubin, Direct, S CANCELED mg/dL 10/2023 12:45 PM PRODUCTION BROACHER DTL Comment: Specimen was hemolyzed. Result canceled by the ancillary. Aspartate Aminotransferase (AST), S CANCELED U/L 05/16/2023 12:46 PM PRODUCTION BROACHER DTL Comment: Specimen was hemolyzed. Result canceled by the ancillary. Alanine Aminotransferase (ALT), S 15 7 - 45 U/L 05/16/2023 12:43 PM PRODUCTION BROACHER DTL Alkaline Phosphatase, S 64 35 - 104 U/L 05/16/2023 12:43 PM PRODUCTION BROACHER DTL Albumin, S 4.3 3.5 - 5.0 g/dL 05/16/2023 12:43 PM PRODUCTION BROACHER DTL Protein, Total, S 6.4 6.3 - 7.9 g/dL 05/16/2023 12:43 PM PRODUCTION BROACHER DTL Blood (Blood, Venous) 05/16/2023 11:34 AM PRODUCTION BROACHER 05/16/2023 12:00 PM PRODUCTION BROACHER Stacy Guzman P.A.-C., M.S. LAB BLOOD ADD -ON Performing Organization Address City/[facility] Co de Phone Number [facility] [address] [facility] [address] [place] [address] * Prothrombin Time (PT) (05/16/2023 11:34 AM PRODUCTION BROACHER) Prothrombin Time, P 10.3 9.4 - 12.5 sec 05/16/2023 11:47 AM PRODUCTION BROACHER STMA INR 0.9 0.9 - 1.1 05/16/2023 11:47 AM PRODUCTION BROACHER STMA Comment: ----ADDITIONAL INFORMATION---- Standard intensity warfarin therapeutic range: 2.0 to 3.0 ?? High intensity warfarin therapeutic range: 2.5 to 3.5 Blood (Blood, Venous) 05/16/2023 11:34 AM PRODUCTION BROACHER 05/16/2023 11:39 AM PRODUCTION BROACHER Stacy Guzman P.A.-C., M.S. LAB BLOOD ADD -ON Performing Organization Address City/[facility] Co de Phone Number [facility] [address] [place] [address], [facility] STMA [facility] [address] [place] [address] * CBC with Differential, Blood (05/16/2023 11:34 AM PRODUCTION BROACHER) Hemoglobin 13.7 11.6 - 15.0 g/dL 05/16/2023 11:41 AM PRODUCTION BROACHER STMA Hematocrit 42.4 35.5 - 44.9 % 05/16/2023 11:41 AM PRODUCTION BROACHER STMA Erythrocytes 4.60 3.92 - 5.13 x10(12)/L 05/16/2023 11:41 AM PRODUCTION BROACHER STMA MCV 92.2 78.2 - 97.9 fL 05/16/2023 11:41 AM PRODUCTION BROACHER STMA RBC Distrib Width 12.5 12.2 - 16.1 % 05/16/2023 11:41 AM PRODUCTION BROACHER STMA Platelet Count 243 157 - 371 x10(9)/L 05/16/2023 11:41 AM PRODUCTION BROACHER STMA Leukocytes 5.6 3.4 - 9.6 x10(9)/L 05/16/2023 11:41 AM PRODUCTION BROACHER STMA Neutrophils 3.05 1.56 - 6.45 x10(9)/L 05/16/2023 11:41 AM PRODUCTION BROACHER DHPM Lymphocytes 2.06 0.95 - 3.07 x10(9)/L 05/16/2023 11:41 AM PRODUCTION BROACHER STMA Monocytes 0.30 0.26 - 0.81 x10(9)/L 05/16/2023 11:41 AM PRODUCTION BROACHER STMA Eosinophils 0.11 0.03 - 0.48 x10(9)/L 05/16/2023 11:41 AM PRODUCTION BROACHER STMA Basophils 0.05 0.01 - 0.08 x10(9)/L 05/16/2023 11:41 AM PRODUCTION BROACHER STMA Blood (Blood, Venous) 05/16/2023 11:34 AM PRODUCTION BROACHER 05/16/2023 11:39 AM PRODUCTION BROACHER Stacy Guzman P.A.-C., M.S. LAB BLOOD ADD -ON [facility] [address] [place] [address], [facility] STMA [facility] [address] [place] [address] DHPM [facility] [address] [place] [address] * S-TSH (Thyroid-Stimulating Hormone - Sensitive) (05/16/2023 11:34 AM PRODUCTION BROACHER) [facility] TSH, Sensitive 2.7 0.3 - 4.2 mIU/L 05/16/2023 12:43 PM PRODUCTION BROACHER DTL Blood (Blood, Venous) 05/16/2023 11:34 AM PRODUCTION BROACHER 05/16/2023 12:00 PM PRODUCTION BROACHER Stacy Guzman P.A.-C., M.S. LAB BLOOD ADD -ON [facility] [address] [place] [address] * Lipase (05/16/2023 11:34 AM PRODUCTION BROACHER) Pathologist [facility] Lipase, S 19 13 - 60 U/L 05/16/2023 12:43 PM PRODUCTION BROACHER DTL Blood (Blood, Venous) 05/16/2023 11:34 AM PRODUCTION BROACHER 05/16/2023 12:00 PM PRODUCTION BROACHER Stacy Guzman P.A.-C., M.S. LAB BLOOD ADD -ON Performing Organization Address City/[facility] Co de Phone Number [facility] [address] [place] [address] * Lactate (05/16/2023 11:34 AM PRODUCTION BROACHER) [facility] Lactate, P 0.9 0.5 - 2.2 mmol/L 05/16/2023 11:56 AM PRODUCTION BROACHER [facility] Blood (Blood, Venous) 05/16/2023 11:34 AM PRODUCTION BROACHER 05/16/2023 11:39 AM PRODUCTION BROACHER Stacy Guzman P.A.-C., M.S. LAB BLOOD NON ADD-ON Performing Organization Address City/[facility]/ZIP Co de Phone Number [facility] [address] [facility] [address] [place] [address] * Basic Metabolic Panel (05/16/2023 11:34 AM PRODUCTION BROACHER) [facility] Potassium, P 4.4 3.6 - 5.2 mmol/L 05/16/2023 12:00 PM PRODUCTION BROACHER STMA Sodium, P 139 135 - 145 mmol/L 05/16/2023 12:00 PM PRODUCTION BROACHER STMA Chloride, P 104 98 - 107 mmol/L 05/16/2023 12:00 PM PRODUCTION BROACHER STMA Bicarbonate, P 27 22 - 29 mmol/L 05/16/2023 12:00 PM PRODUCTION BROACHER STMA Anion Gap, P 8 7 - 15 05/16/2023 12:00 PM PRODUCTION BROACHER STMA BUN (Blood Urea Nitrogen), P 19 6 - 21 mg/dL 05/16/2023 12:00 PM PRODUCTION BROACHER STMA Creatinine 0.86 0.59 - 1.04 mg/dL 05/16/2023 12:00 PM PRODUCTION BROACHER STMA Estimated GFR (eGFR) 74 >=60 mL/min/BSA 05/16/2023 12:00 PM PRODUCTION BROACHER STMA Comment: Estimated GFR calculated using the 2020 CKD_EPI creatinine equation. Calcium, Total, P 9.4 8.8 - 10.2 mg/dL 05/16/2023 12:00 PM PRODUCTION BROACHER STMA Glucose, P 91 70 - 140 mg/dL 05/16/2023 12:00 PM PRODUCTION BROACHER STMA Blood (Blood, Venous) 05/16/2023 11:34 AM PRODUCTION BROACHER 05/16/2023 11:39 AM PRODUCTION BROACHER Stacy Guzman P.A.-C., M.S. LAB BLOOD ADD -ON [facility] [address] [place] [address], [facility] [address] [place] [address] * ECG 12 Lead (05/16/2023 11:21 AM PRODUCTION BROACHER) Ventricular Rate ECG/Min 65 BPM MUSE TN Interval 156 ms MUSE QRSD Interval 88 ms MUSE QT Interval 414 ms MUSE QTC Interval 430 ms MUSE P [place] 24 degrees MUSE R [place] -37 degrees MUSE T Wave [place] 37 degrees MUSE 05/16/2023 11:2 1 AM PRODUCTION BROACHER 05/16/2023 11:33 AM PRODUCTION BROACHER Impressions MUSE - 05/16/2023 11:33 AM PRODUCTION BROACHER Normal sinus rhythm Left axis deviation Minimal voltage criteria for LVH, may be normal variant When compared with ECG of 24-DEC-2019 21:08, Vent. rate has decreased BY ??49 BPM Reviewed by ANA Alcantara Narrative Procedure Note Armin Mayen M.B.B.S. - 05/16/2023 IMPRESSION: Normal sinus rhythm Left axis deviation Minimal voltage criteria for LVH, may be normal variant When compared with ECG of 24-DEC-2019 21:08, Vent. rate has decreased BY 49 BPM Reviewed by ANA Alcantara Stacy Guzman P.A.-C., M.S. ECG ORDERABLE S MUSE NA from Last 3 Months Care Teams Grain Miller Helper Relationship Specialty Start Date End Date Elsewhere, Pcp PCP - General Internal Medicine 05/16/23
--- OUTSIDE RECORDS SUMMARY | 2023-06-18 14:16 | XMS_ITS | Encounter Summary ---
Author Name Unknown Organization [facility] er Address [address] [place] [address] Care Team Providers Care Motorboat Mechanic Inboard/Outboard Name Role Phone Marian Spaulding MD Primary Care Provider Encounter Details Date Type Department Care Team (Late st Contact Info) Description 01/10/[address] [id number] Ruchi Bazzi MD Social History Tobacco Use Types Packs/Day Years Used Date Smoking Tobacco: Never Smokeless Tobacco: Never Alcohol Use Standard Drinks/Week Comments Not Currently 0 (1 standard drink = 0.6 oz pur e alcohol) Humiliation, Afraid, Rape, and Kick questionnair e Answer Date Recorded Fear of Current or Ex-Partner No Emotionally Abused No 01/12/2018 Physically Abused No 01/12/2018 Sexually Abused No 01/12/2018 Social Connection and Isolat ion Panel [NHANES] Answer Date Recorded Frequency of Communication w ith Friends and Family More than three times a week 01/12/2018 Frequency of Social Gatherin gs with Friends and Family More than three times a week 01/12/2018 Attends Ep[employer]op[employer] Services More than 4 times per year 01/12/2018 Active Member of Clubs or Organizations Not on f ile 01/12/2018 Attends Club or Organization Meetings Not on primo e 01/12/2018 Marital Status Not on file 01/12/2018 AUDIT-C Answer Date Recorded Q1: How often do you have a drink containing alc ohol? Monthly or less 07/12/2020 Q2: How many drinks containi ng alcohol do you have on a typical day when you are drinking? 1 or 2 07/12/2020 Q3: How often do you have si x or more drinks on one occasion? Less than monthly 07/12/2020 Overall Financial Resource Strain (CARDIA) Answe r Date Recorded How hard is it for you to pa y for the very basics like food, housing, medical care, and heating? Somewhat hard 04/27/2020 PHQ-2 Answer Date Recorded PHQ-9 Total Score 2 12/06/2020 Hunger Vital Sign Answer Date Recorded Within the past 12 months, y ou worried that your food would run out before you got the money to buy more. Never true 04/27/19 21 Within the past 12 months, t he food you bought just didn't last and you didn't have money to get more. Never true 04/27/2020 PRAPARE - Transportation Answer Date Re corded In the past 12 months, has l ack of transportation kept you from medical appointments or from getting medications? No 04/10 In the past 12 months, has l ack of transportation kept you from meetings, work, or from getting things needed for daily living? No 04/27/2020 Education Answer Date Recorded What is the highest level of school you have completed or the highest degree you have received? Associate degree: academic program 05/02/2018 Sex and Gender Information Value Date Recorded Sex Assigned at Female 07/05/2021 11:48 AM CDT Gender Identity Female 07/05/2021 11:48 AM CDT Sexual Orientation Straight 07/05/2021 11 :48 AM CDT documented as of this encounter Plan of Treatment Not on file documented as of this encounter Visit Diagnoses Not on filedocumented in this encounter Additional Health Concerns Infection Onset Date Last Indicated Resolved Time COVID-19 Rule Out 02/27/2021 02/27/2021 02/28/2021 12:39 AM UX DESIGNER COVID-19 Rule Out 07/04/2021 07/04/2021 07/05/2021 9:36 PM CDT COVID-19 Rule Out 06/13/2023 06/13/2023 06/13/2023 10:42 AM CDT documented as of this encounter Care Teams Motorboat Mechanic Inboard/Outboard Relationship Specialty Start Date End Date Marian Spaulding MD [address] [place] [phone] PCP - General 06/26/21 documented as of this encounter
--- OUTSIDE RECORDS SUMMARY | 2023-06-18 14:16 | XMS_ITS | Encounter Summary ---
Author Name Unknown Organization [facility] er Address [address] [place] [address] Care Team Providers Care Photographic Equipment Assembler Name Role Phone Marian Spaulding MD Primary Care Provider Reason for Visit * Reason Onset Date Comments Med Refill 02/01/2020 Encounter Details Date Type Department Care Team (Late st Contact Info) Description 02/01/2020 Refill [place] [address] [place] [phone] Ruchi Bazzi MD Fibromyalgia Social History Tobacco Use Types Packs/Day Years [...] than three times a week 01/12/2018 Attends Mu-Ism Services More than 4 times per year 01/12/2018 Active Member of Clubs or Organizations Not on f ile 01/12/2018 Attends Club or Organization Meetings Not on primo e 01/12/2018 Marital Status Not on file 01/12/2018 AUDIT-C Answer Date Recorded Frequency of Alcohol Consumption Monthly or less 01/12/2018 Average Number of Drinks 1 or 2 018 Frequency of Binge Drinking Less than monthly Overall Financial Resource Strain (CARDIA) Answe r Date Recorded How hard is it for you to pa y for the very basics like food, housing, medical care, and heating? Somewhat hard 01/13/2020 PHQ-2 Answer Date Recorded PHQ-2 Score 10 01/25/2020 Hunger Vital Sign Answer Date Recorded Worried About Running Out of Food in the Last Ye ar Never true 01/12/2018 Ran Out of Food in the Last Year Never true 01/12/2018 PRAPARE - Transportation Answer Date Re corded In the past 12 months, has l ack of transportation kept you from medical appointments or from getting medications? No 07/2019 In the past 12 months, has l ack of transportation kept you from meetings, work, or from getting things needed for daily living? No 01/13/2020 Education Answer Date Recorded What is the highest level of school you have completed or the highest degree you have received? Associate degree: academic program 05/02/2018 Sex and Gender Information Value Date Recorded Sex Assigned at Female 07/05/2021 11:48 AM CDT Gender Identity Female 07/05/2021 11:48 AM CDT Sexual Orientation Straight 07/05/2021 11 :48 AM CDT COVID-19 Exposure Response Date Recorded In the last month, have you been in contact with someone who was confirmed or suspected to have Coronavirus / COVID-19? No / Unsure 01/15/2020 12:03 PM FINE GRADE OPERATOR documented as of this encounter Miscellaneous Notes * Telephone Encounter - Mariana Monge RN - 02/01/2020 4:00 PM FINE GRADE OPERATOR Pt requesting Amtriptyline 50mg refilled to [facility] GRADE OPERATOR documented in this encounter Plan of Treatment Not on file documented as of this encounter Visit Diagnoses Diagnosis Fibromyalgia Unspecified myalgia and myositis documented in this encounter Additional Health Concerns Infection Onset Date Last Indicated Resolved Time COVID-19 Rule Out 02/27/2021 02/27/2021 02/28/2021:39 AM FINE GRADE OPERATOR COVID-19 Rule Out 07/04/2021 07/04/2021 07/05/2021 9:36 PM CDT COVID-19 Rule Out 06/13/2023 06/13/2023 06/13/2023 10:42 AM CDT documented as of this encounter Care Teams Photographic Equipment Assembler Relationship Specialty Start Date End Date Marian Spaulding MD [address] [place] [phone] PCP - General 06/26/21 documented as of this encounter
--- OUTSIDE RECORDS SUMMARY | 2023-06-18 14:16 | XMS_ITS | Encounter Summary ---
Author Name Unknown Organization [facility] er Address [address] [place] [address] Care Team Providers Care Video Editing Intern Name Role Phone Marian Spaulding MD Primary Care Provider Encounter Details Date Type Department Care Team (Late st Contact Info) Description 07/12/2021 Telephone [facility] [address] [place] [phone] Ligia Tilley, RN [address] [place] [address] Social History Tobacco Use Types Packs/Day Years [...] than three times a week 01/12/2018 Attends Evangelical Services More than 4 times per year [...] have Coronavirus / COVID-19? No / Unsure 07/10/2021 8:01 AM CDT documented as of this encounter Plan of Treatment Not on file documented as of this encounter Visit Diagnoses Not on filedocumented in this encounter Additional Health Concerns Infection Onset Date Last Indicated Resolved Time COVID-19 Rule Out 06/13/2023 06/13/2023 06/13/2023 10:42 AM CDT documented as of this encounter Care Teams Video Editing Intern Relationship Specialty Start Date End Date Marian Spaulding MD [address] [place] [phone] PCP - General 06/26/21 documented as of this encounter
--- OUTSIDE RECORDS SUMMARY | 2023-06-18 14:16 | XMS_ITS | Encounter Summary ---
Author Name Unknown Organization [facility] er Address [address] [place] [address] Care Team Providers Care Airplane Patrol Pilot Name Role Phone Marian Spaulding MD Primary Care Provider Reason for Visit * Reason Comments covid X Friday; would lik e treatment Encounter Details Date Type Department Care Team (Late st Contact Info) Description 06/13/2023 10:00 AM CDT Office Visit [facility] [address] [place], [place] [id number] Hai Simon, PAAshleyC [address] [place], [place] [id number] Encounter for screening laboratory testing for COVID-19 virus (Primary Dx); Viral URI with cough Social History Tobacco Use Types Packs/Day Years [...] than three times a week 01/12/2018 Attends Mormonism Services More than 4 times per year [...] PHQ-2 Answer Date Recorded PHQ-9 Total Score 0 06/13/2023 Hunger Vital Sign Answer Date Recorded Within [...] AM CDT documented as of this encounter Last Filed Vital Signs Vital Sign Reading Time Taken Comments Blood Pressure 117/72 06/13/2023 9:55 AM CDT Pulse 79 06/13/2023 9:55 AM CDT Temperature 36.6 ??C (97.9 ??F) 06/13/2023 9:55 AM CD T Respiratory Rate 18 06/13/2023 9:55 AM CDT Oxygen Saturation 97% 06/13/2023 9:55 AM CDT Inhaled Oxygen Concentration - - Weight 90.2 kg (198 lb 13.7 oz) 06/13/2023 9:55 AM CDT Height - - Body Mass Index 36.36 05/07/2021 2:29 PM CANVAS CUTTER HAND documented in this encounter Progress Notes * Hai Simon PA-C - 06/13/2023 10:00 AM CDT Subjective: Patient ID: Yvonne Garcias is a 68 y.o. female. Chief Complaint Patient presents with covid X Friday; would like treatment HPI Yvonne Garcias is a 68 y.o. female presenting to [facility] with complaints of cough, headache, loss of taste and smell, fever, diarrhea and bodyaches. Symptoms began 3 days ago on Friday. Diarrhea has resolved. Patient notes that she has increased discomfort when she takes a deep breath. Denies kym chest pain or diaphoresis. Tmax at home was 101.5 ??F. She has been attempting to treat symptoms with Tylenol and pushing fluids. Overall decreased appetite but is still able to take in solids. No known sick exposures but she is concerned about potential COVID. Patient's problem list, medications, allergies, past medical, surgical, social and family historieswere reviewed and updated as appropriate. Past Medical History Active Ambulatory Problems Diagnosis Date Noted Fibromyalgia 12/09/2014 Mixed hyperlipidemia 01/10/2017 Essential hypertension 04/27/2018 Class 3 severe obesity with body mass index (BMI) of 40.0 to 44.9 in adult ([facility]) 04/27/2018 Allergic rhinitis, cause unspecified 08/21/2006 Anxiety state 03/31/2006 Esophageal reflux 08/21/2006 Hypertrophy of breast 11/21/2009 Osteoarthritis 07/05/2008 Otosclerosis, unspecified 08/22/2006 Post-menopause on HRT (hormone replacement therapy) 08/21/2006 Unspecified hypothyroidism 03/31/2006 Vitamin D deficiency 01/25/2020 KAJAL (obstructive sleep apnea) 04/06/2020 History of total right knee replacement 07/25/2021 Resolved Ambulatory Problems Diagnosis Date Noted No Resolved Ambulatory Problems Past Medical History: Diagnosis Date Allergic Allergic rhinitis Anxiety Arthritis Depression Disease of thyroid gland GERD (gastroesophageal reflux disease) HL (hearing loss) Hypertension Obesity Pneumonia Sleep apnea Urinary tract infection Varicella Visual impairment Social History Social History Socioeconomic History Marital status: Spouse name: Not on file Number of children: 2 Years of education: Not on file Highest education level: Associate degree: academic program Occupational History 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 Carbon monoxide and fire detectors. Raises goats. 3 dog 1 cat Social Determinants of Health Financial Resource Strain: Medium Risk (04/27/2020) Overall Financial Resource Strain (CARDIA) Difficulty of Paying Living Expenses: Somewhat hard Food Insecurity: No Food Insecurity (04/27/2020) Hunger Vital Sign Worried About Running Out of Food in the Last Year: Never true Ran Out of Food in the Last Year: Never true Transportation Needs: No Transportation Needs (04/27/2020) PRAPARE - Transportation Lack of Transportation (Medical): No Lack of Transportation (Non-Medical): No Physical Activity: Not on file Stress: Not on file Social Connections: Unknown (01/12/2018) Social Connection and Isolation Panel [NHANES] Frequency of Communication with Friends and Family: More than three times a week Frequency of Social Gatherings with Friends and Family: More than three times a week Attends Mormonism Services: More than 4 times per year Active Member of Clubs or Organizations: Not on file Attends Club or Organization Meetings: Not on file Marital Status: Not on file Intimate Partner Violence: Not At Risk (01/12/2018) Humiliation, Afraid, Rape, and Kick questionnaire Fear of Current or Ex-Partner: No Emotionally Abused: No Physically Abused: No Sexually Abused: No Housing Stability: Not on file Surgical History Past Surgical History: Procedure Laterality Date BREAST SURGERY 2009 reduction CHOLECYSTECTOMY KNEE ARTHROSCOPY W/ DEBRIDEMENT Right 05/05/2012 right knee arthroscopy, tricompartmental debridement with a lateral release OVARIAN CYST DRAINAGE TONSILLECTOMY History of tonsillectomy with adenoidectomy TOTAL KNEE ARTHROPLASTY Right 07/10/2021 Procedure: ARTHROPLASTY KNEE TOTAL -cementless; Surgeon: Ghassan Castillo MD; Location: [facility]; Service: Orthopedics; Laterality: Right; Medications Current Outpatient Medications: acetaminophen (TYLENOL 8 HOUR) 650 MG 8 hr tablet, Take 2 tablets (1,300 mg total) by mouth every 8hours, Disp: , Rfl: atorvastatin (LIPITOR) 10 MG tablet, , Disp: , Rfl: celecoxib (CeleBREX) 100 MG capsule, Take 1 capsule (100 mg total) by mouth 2 (two) times a day, Disp: , Rfl: DULoxetine (CYMBALTA) [address] capsule, TAKE 1 CAPSULE BY MOUTH ONCE DAILY, Disp: 90 capsule, Rfl: 3 esomeprazole (NEXIUM) [address] capsule, Take 1 capsule (20 mg total) by mouth 1 (one) time each daybefore breakfast Do not open capsule., Disp: , Rfl: gabapentin (NEURONTIN) 300 MG capsule, Take 1 capsule (300 mg total) by mouth every night, Disp: 90capsule, Rfl: 3 levothyroxine (Euthyrox) 112 MCG tablet, Take 1 tablet (112 mcg total) by mouth 1 (one) time each day, Disp: 90 tablet, Rfl: 3 Linzess 290 MCG capsule, , Disp: , Rfl: Multiple Vitamins-Minerals (Daily Multivitamin) capsule, Take 1 mg by mouth 2 (two) times a day Melaluca brand multivitamin packets containing more than 1 pill, Disp: , Rfl: NON FORMULARY, 1.5 tablets 1 (one) time each day in the morning , Disp: , Rfl: NON FORMULARY, 1.5 tablets at bed time, Disp: , Rfl: verapamil SR (CALAN-SR) 180 MG CR tablet, TAKE 1 TABLET TWICE DAILY (DO NOT CRUSH OR CHEW), Disp: 180 tablet, Rfl: 3 aspirin 81 MG EC tablet, Take 81 mg by mouth 1 (one) time each day (Patient not taking: Reported 12/06/2020), Disp: , Rfl: cyclobenzaprine (FLEXERIL) 5 MG tablet, Take 1 tablet (5 mg total) by mouth 3 (three) times a day if needed for muscle spasms for up to 7 days, Disp: 21 tablet, Rfl: 0 psyllium (METAMUCIL) 58.12 % packet, Take 1 packet by mouth 3 (three) times a day Constipation (Patient not taking: Reported on 06/18/2021), Disp: , Rfl: Allergies Allergies Allergen Reactions Vancomycin Anaphylaxis and Hives Penicillins Rash Flagyl [Metronidazole] GI upset Iodinated Contrast Media Had angiogram in [address] chest with contrast in 2007, withOUT reaction. Sulfa Antibiotics Nausea Only Morphine Nausea And Vomiting Intolerance Review of Systems As noted below, otherwise per HPI Objective: Visit Vitals BP 117/72 (BP Location: Left arm, Patient Position: Sitting) Pulse 79 Temp 36.6 ??C (97.9 ??F) (Temporal) Resp 18 Wt 90.2 kg (198 lb 13.7 oz) SpO2 97% BMI 36.36 kg/m?? OB Status Postmenopausal Smoking Status Never BSA 1.99 m?? Body mass index is 36.36 kg/m??. Physical Exam Vitals and nursing note reviewed. Constitutional: General: She is not in acute distress. Appearance: Normal appearance. She is not ill-appearing, toxic-appearing or diaphoretic. HENT: Head: Atraumatic. Right Ear: Tympanic membrane, ear canal and external ear normal. No drainage or tenderness. No middle ear effusion. There is no impacted cerumen. No mastoid tenderness. Tympanic membrane is not injected, perforated, erythematous, retracted or bulging. Left Ear: Tympanic membrane, ear canal and external ear normal. No drainage or tenderness. No middle ear effusion. There is no impacted cerumen. No mastoid tenderness. Tympanic membrane is not injected, perforated, erythematous, retracted or bulging. Nose: Nose normal. No rhinorrhea. Right Sinus: No maxillary sinus tenderness or frontal sinus tenderness. Left Sinus: No maxillary sinus tenderness or frontal sinus tenderness. Mouth/Throat: Lips: [place]. Mouth: Mucous membranes are moist. Tongue: No lesions. Pharynx: Oropharynx is clear. Uvula midline. No pharyngeal swelling, oropharyngeal exudate, posterior oropharyngeal erythema or uvula swelling. Tonsils: No tonsillar exudate or tonsillar abscesses. Comments: Uvula midline. No drooling, trismus, stridor, asymmetry, muffled voice. Eyes: Extraocular Movements: Extraocular movements intact. Conjunctiva/sclera: Conjunctivae normal. Cardiovascular: Rate and Rhythm: Normal rate and regular rhythm. Heart sounds: Normal heart sounds. No murmur heard. Pulmonary: Effort: Pulmonary effort is normal. No respiratory distress. Breath sounds: Normal breath sounds. No stridor. No wheezing, rhonchi or rales. Abdominal: General: Bowel sounds are normal. Tenderness: There is no abdominal tenderness. Musculoskeletal: General: Normal range of motion. Cervical back: Normal range of motion and neck supple. Lymphadenopathy: Cervical: No cervical adenopathy. Skin: Coloration: Skin is not pale. Neurological: Mental Status: She is alert and oriented to person, place, and time. Psychiatric: Mood and Affect: Mood normal. Thought Content: Thought content normal. Assessment/Orders: Diagnoses and all orders for this visit: Encounter for screening laboratory testing for COVID-19 virus - Covid-19, Biggs ID Now, PCR Viral URI with cough Plan: Presented with symptoms above. Non toxic on exam, is afebrile and wo hypoxia. With shared decision making, COVID PCR completed in clinic and was negative. Signs and/or symptoms likely due to viral illness. Discussed that antibiotics would not be helpful at this time. Discussed home cares including Tylenol, Ibuprofen, humidity, and nasal saline. Encouraged to prop head while sleeping. Also recommend pushing fluids, rest, and eating a well balanced diet. Strict return precautions advised prior toclinic discharge. I have spoken with the Patient, who expressed clear understanding of everything discussed includingtoday's findings, and I provided specific details regarding the plan of care. They were informed ifsigns and/ or symptoms do not improve, that further work up may be warranted. I discussed reasons to return as well as the importance of follow-up. The Patient states understanding and is in agreement with the above plan. All questions were answered. This note was partially constructed using Visual Pro 360 medical dictation. All attempts have been made to review for accuracy; although, some nonsensical information may persist despite proofreading. documented in this encounter Plan of Treatment Not on file documented as of this encounter Procedures Procedure Name Priority Date/Time Associated Diagnosis Comments COVID-19, BIGGS ID NOW, PCR Routine 06/13/2023 10:03 AM CDT Encounter for screening laboratory testing for COVID-19 virus documented in this encounter Results * Covid-19, Biggs ID Now, PCR (06/13/2023 10:03 AM CDT) Covid Source Nasal 06/13/2023 10:42 AM CDT [facility] Covid-19, ID Now PCR NEGATIVE Negative 06/13/2023 10:42 AM CDT [facility] Comment: Negative results should be treated as presumptive and, if inconsistent with clinical signs and symptoms or necessary for patient management, should be tested with an alternative molecular assay. Testing was performed using the Biggs ID NOW COVID-19 2.0 assay. Swab (Nasal) 06/13/2023 10:0 3 AM CDT 06/13/2023 10:16 AM CDT Jere Mercer PA-C LAB [facility] DIAGNOSTICS ORDERABLES [facility] [address] [place] [address] documented in this encounter Visit Diagnoses Diagnosis Encounter for screening laboratory testing for COVID-19 virus- Primary Viral URI with cough documented in this encounter Additional Health Concerns Infection Onset Date Last Indicated Resolved Time COVID-19 Rule Out 06/13/2023 06/13/2023 06/13/2023 10:42 AM CDT documented as of this encounter Care Teams Airplane Patrol Pilot Relationship Specialty Start Date End Date Marian Spaulding MD [address] [place] [address] [phone] PCP - General 06/26/21 documented as of this encounter
--- OUTSIDE RECORDS SUMMARY | 2023-06-18 14:16 | XMS_ITS | Encounter Summary ---
Author Name Unknown Organization [facility] er Address [address] [place] [address] Care Team Providers Care Pole Tester Name Role Phone Marian Spaulding MD Primary Care Provider Encounter Details Date Type Department Care Team (Late st Contact Info) Description 04/21/2018 Refill [place] [address] [place] [address] Rona Estrella, EMERGENCY MEDICAL SERVICE COORDINATOR, SALES MARKETING MANAGER [address] [place] [address] Fibromyalgia Social History Tobacco Use Types Packs/Day [...] than three times a week 01/12/2018 Attends Spiritism Services More than 4 times per year 01/12/2018 Active Member of Clubs or Organizations Not on f ile 01/12/2018 Attends Club or Organization Meetings Not on primo e 01/12/2018 Marital Status Not on file 01/12/2018 AUDIT-C Answer Date Recorded Frequency of Alcohol Consumption Monthly or less 01/12/2018 Average Number of Drinks 1 or 2 018 Frequency of Binge Drinking Less than monthly Hunger Vital Sign Answer Date Recorded Worried About Running Out of Food in the Last Ye ar Never true 01/12/2018 Ran Out of Food in the Last Year Never true 01/12/2018 Sex and Gender Information Value Date Recorded Sex Assigned at Female 07/05/2021 11:48 AM CDT Gender Identity Female 07/05/2021 11:48 AM CDT Sexual Orientation Straight 07/05/2021 11 :48 AM CDT documented as of this encounter Miscellaneous Notes * Telephone Encounter - Sary Alvarez MA - 04/22/2018 3:03 PM CST Noted RANCE COMMISSIONER * Telephone Encounter - Shreya Estrada - 04/22/2018 2:42 PM CST Pt returned call to clinic. Message from Zenon Estrella regarding Rx was relayed to Pt. RANCE COMMISSIONER * Telephone Encounter - Rona Estrella APRN, CNP - 04/21/2018 1:35 PM INSURANCE COMMISSIONER Please contact the patient and let her know this is been done per her request. Thanks Zenon RANCE COMMISSIONER * Telephone Encounter - Sary Alvarez MA - 04/21/2018 1:16 PM CST I have pended a medication refill for your review. RANCE COMMISSIONER * Telephone Encounter - Lucia North - 04/21/2018 12:18 PM CST The patient would like her dulexatine 60 mg called to [facility] and a call back when completed.She has done the same thing with her other Rxs and would like this one switched over as well. RANCE COMMISSIONER documented in this encounter Plan of Treatment Not on file documented as of this encounter Visit Diagnoses Diagnosis Fibromyalgia Unspecified myalgia and myositis documented in this encounter Additional Health Concerns Infection Onset Date Last Indicated Resolved Time COVID-19 Rule Out 11/18/2019 11/18/2019 11/19/2019 12:15 PM CDT COVID-19 Rule Out 02/27/2021 02/27/2021 02/28/2021 12:39 AM INSURANCE COMMISSIONER COVID-19 Rule Out 07/04/2021 07/04/2021 07/05/2021 9:36 PM CDT COVID-19 Rule Out 06/13/2023 06/13/2023 06/13/2023 10:42 AM CDT documented as of this encounter Care Teams Pole Tester Relationship Specialty Start Date End Date Marian Spaulding MD [address] [place] [address] [phone] PCP - General 06/26/21 documented as of this encounter
--- OUTSIDE RECORDS SUMMARY | 2023-06-18 14:16 | XMS_ITS | Encounter Summary ---
Author Name Unknown Organization [facility] er Address [address] [place] [address] Care Team Providers Care Drop Board Man Name Role Phone Marian Spaulding MD Primary Care Provider Reason for Visit * Reason Onset Date Comments Results 03/04/2023 Encounter Details Date Type Department Care Team (Late st Contact Info) Description 03/04/2023 Telephone Acute Care [address] [place] [id number] Savita Barr, DNP, UNDER SHERIFF, SPINDLE CARVER [address] [place] [phone] Results Social History Tobacco Use Types Packs/Day Years [...] than three times a week 01/12/2018 Attends Judaism Services More than 4 times per year [...] Answer Date Recorded PHQ-9 Total Score 0 02/28/2023 Hunger Vital Sign Answer Date Recorded Within [...] encounter Miscellaneous Notes * Telephone Encounter - Johnnie Aleman RN - 03/04/2023 9:56 AM TAR LEVELER Patient calling for X-ray results from 02/28/2023. Patient notified of providers result message. Patient had no questions and will follow up with her PCP. LEVELER documented in this encounter Plan of Treatment Not on file documented as of this encounter Visit Diagnoses Not on filedocumented in this encounter Care Teams Drop Board Man Relationship Specialty Start Date End Date Marian Spaulding MD [address] [place] [address] [phone] PCP - General 06/26/21 documented as of this encounter
--- OUTSIDE RECORDS SUMMARY | 2023-06-18 14:16 | XMS_ITS | Clinical Summary ---
Author Name Unknown Organization [facility] er Address [address] [place] [address] Care Team Providers Care Sample Tester Name Role Phone Marian Spaulding MD Primary Care Provider Allergies Active Allergy Reactions Criticality Noted Date Comments Metronidazole 01/15/2020 GI upset Iodinated Contrast Media Had angiogram in [address] chest with contrast in 2007, withOUT reaction. Morphine Nausea And Vomiting Low 01/11/2010 Intolerance Penicillins Rash Medium 02/27/2006 Sulfa Antibiotics Nausea Only 02/27/2006 Vancomycin Anaphylaxis,Hives High 02/19/2010 Medications Medication Sig Dispensed Refills Start Date End Date Status esomeprazole (NEXIUM) [address] capsule Take 1 capsule (20 mg total) by mouth 1 (one) time each day before breakfast Do not open capsule. 0 Active Multiple Vitamins-Minerals (Daily Multivitamin) capsule Take 1 mg by mouth 2 (two) times a day Melaluca brand multivitamin packets containing more than 1 pill 0 Active aspirin 81 MG EC tablet Take 81 mg by mouth 1 (one) time each day 0 Active psyllium (METAMUCIL) 58.12 % packet Take 1 packet by mouth 3 (three) times a day Constipation 0 Active DULoxetine (CYMBALTA) [address] capsuleIndications: Fibromyalgia TAKE 1 CAPSULE BY MOUTH ONCE DAILY 90 capsule 3 04/27/2020 Active levothyroxine (Euthyrox) 112 MCG tabletIndications:H ypothyroidism, unspecified type Take 1 tablet (112 mcg total) by mouth 1 (one) time each day 90 tablet 3 06/21/2020 Active gabapentin (NEURONTIN) 300 MG capsuleIndications: Neck pain,Fibromyalgia Take 1 capsule (300 mg total) by mouth every night 90 capsule 3 06/21/2020 Active acetaminophen (TYLENOL 8 HOUR) 650 MG 8 hr tablet Take 2 tablets (1,300 mg total) by mouth every 8 hours 0 Active verapamil SR (CALAN-SR) 180 MG CR tabletIndications:E ssential hypertension TAKE 1 TABLET TWICE DAILY (DO NOT CRUSH OR CHEW) 180 tablet 3 02/28/2021 Active NON FORMULARYIndication s:1:1 CBD: THC cannabis product 2.5 mg THC, 2.5mg CBD per tablet 1.5 tablets 1 (one) time each day in the morning 0 Active NON FORMULARYIndication s:1:6 CBD: THC cannabis product 4.3 mg THC,0.7mg CBD per tablet 1.5 tablets at bed time 0 Active celecoxib (CeleBREX) 100 MG capsule Take 1 capsule (100 mg total) by mouth 2 (two) times a day 0 05/21/2021 Active atorvastatin (LIPITOR) 10 MG tablet 0 07/17/2021 Active Linzess 290 MCG capsule 0 02/15/2023 Active cyclobenzaprine (FLEXERIL) 5 MG tabletIndications:A cute buttock pain Take 1 tablet (5 mg total) by mouth 3 (three) times a day if needed for muscle spasms for up to 7 days 21 tablet 0 02/28/2023 Active Active Problems Problem Noted Date Diagnosed Date History of total right knee replacement 07/26/19 KAJAL (obstructive sleep apnea) 04/06/2020 Vitamin D deficiency 01/25/2020 Overview: VITAMIN D TOTAL Date Value Range Status 01/31/10 28.2* 30.0-80.0 (ng/mL) Final 04/05/09 24.4* 30.0-80.0 (ng/mL) Final 02/02/2010 rec 2,000 IU daily 04/05/09 VIT D-25OH = 24.4 - repl 50K IU /wk x12 wks, then nupur Essential hypertension 04/27/2018 Class 3 severe obesity with body mass index (BMI) of 40.0 to 44.9 in adult 04/27/2018 Mixed hyperlipidemia 01/10/2017 Overview: 01/25/20 ASCVD 10yr risk 5.3% using lipid panel from 2019. Started on asa 81mg, lipitor 20mg nightly. Fibromyalgia 12/09/2014 Hypertrophy of breast 11/21/2009 Osteoarthritis 07/05/2008 Otosclerosis, unspecified 08/22/2006 Overview: Overview: left ear - has a hearing aid Allergic rhinitis, cause unspecified 08/21/2006 Esophageal reflux 08/21/2006 Post-menopause on HRT (hormone replacement thera py) 08/21/2006 Overview: Overview: 07/09/2010 restart HRT (estratest + Provera) LMP 2006 - HRT 2008 - 2009 Anxiety state 03/31/2006 Unspecified hypothyroidism 03/31/2006 Overview: Overview: 03/14/2011 TSH 1.50 - no chg 07/09/10 TSH 0.74 - no chg 01/31/10 TSH 4.29 - incr to 112mcg 04/06/09 TSH 0.89 - no chg 11/18/08 TSH 2.12 - no chg Encounters Date Type Department Care Team Description 06/13/2023 10:00 AM CDT Office Visit Acute Care [address] [place] [address] Hai Simon, PA-C Encounter for screening laboratory testing for COVID-19 virus (Primary Dx); Viral URI with cough from Last 3 Months Immunizations Name Administration Dates Next Due COVID-19, mRNA, LNP-S, PF, 3 0mcg/0.3mL dose Pfizer 12/22/2020,2020,05/18/2020 Flu Vaccine High Dose 65yrs and Older IM 12/23/2022,12/03/2021,12/06/2020,01/12 H1N1 All Forms 03/06/2009 Hepatitis A 08/21/2006 Hepatitis B 11/18/2008 INFLUENZA QUADRIVALENT MDV (IM) 12/03/2021 Influenza (IM) Preservative Free 02/20/2010 Influenza 6mo-64yrs Quad Pre servative Free IM 12/03/2021,02/18/2019,02/18/2019,01/12,01/27/2017,12/31/2015,12/06/2014 ,12/08/2012,01/09/2012,01/08/2011,02/07,12/28/2009,03/06/2009 Influenza TIV (IM) 12/06/2014, 3,01/09/2012,01/08,02/06/2009 Influenza Whole 12/28/2009 Pneumococcal Conjugate 13-Valent 08/08/2014 Pneumococcal Polysaccharide 02/18/2020 TD Preservative Free 02/18/2020 Td 02/18/2020 Tdap 04/05/2009 Family History Medical History Relation Comments Alzheimer's disease Brother 1 Down syndrome Brother 1 No Known Problems Brother 2 No Known Problems Daughter Alzheimer's disease Father Diabetes Father Heart disease Father's Brother No Known Problems Father's Sister 1 No Known Problems Father's Sister 2 No Known Problems Father's Sister 3 Stroke Maternal Grandfather Stroke Maternal Grandmother Alzheimer's disease Mother Cancer Mother Coronary artery disease Mother Diabetes Mother Osteoporosis Mother No Known Problems Mother's Brother 1 No Known Problems Mother's Brother 2 No Known Problems Mother's Sister 1 No Known Problems Mother's Sister 2 No Known Problems Mother's Sister 3 Heart disease Paternal Grandfather Dementia Paternal Grandmother Diabetes Sister 1 COPD Sister 2 Asthma Son Relation Status Comments Brother 1 Brother 2 Alive Daughter Alive Father Father's Brother Father's Sister 1 Father's Sister 2 Father's Sister 3 Maternal Grandfather Maternal Grandmother Mother Mother's Brother 1 Mother's Brother 2 Mother's Sister 1 Mother's Sister 2 Mother's Sister 3 Paternal Grandfather Paternal Grandmother Sister 1 Alive Sister 2 Alive Sister 3 Alive Son Alive Social History Tobacco Use Types Packs/Day Years [...] than three times a week 01/12/2018 Attends Alevism Services More than 4 times per year [...] Orientation Straight 07/05/2021 11 :48 AM CDT Last Filed Vital Signs Vital Sign Reading [...] 13.7 oz) 06/13/2023 9:55 AM CDT Height 157.5 cm (5' 2.01) 05/07/2021 2:29 PM CS T Body Mass Index 36.36 05/07/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 Plan of Treatment Health Maintenance Due Date Last Done Comments Bone Density Scan 1954 CT Colonography 1954 FIT-DNA 1955 Sigmoidoscopy 1955 iFOBT 1955 Medicare Annual Wellness Visit (AWV) 1972 Zoster Vaccines (1 of 2) 2004 Mammogram 04/18/2021 04/18/2020, 02/03/2018, 02/10/2017, Additional history exists Colonoscopy 02/22/2024 02/21/2014 Colorectal Cancer Screening 02/22/2024 Fall Risk Performed 06/12/2024 06/13/2023 DTaP,Tdap,and Td Vaccines (4 - Td or Tdap) 02/17/2030 02/18/2020, 02/18/2020, 04/05/2009 Pap Smear Discontinued 01/12/2018 Pneumococcal Vaccine: 65+ Years Completed 02/18/2020, 08/08/2014 COVID-19 Vaccine Completed 12/23/2022, , 12/22/2020, Additional history exists Influenza Vaccine Completed 12/23/2022, , 12/03/2021, Additional history exists HPV Vaccines Aged Out No longer eligi ble based on patient's age to complete this topic Medical Devices 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 Shelf Expiration Date Model / Serial / Lot Depuy/Cmw 2g - [id number] Implanted:Qty: 1 on 07/10/2021 by Ghassan Castillo MD at [facility] Right: Knee [employer] 09/07/2023 [id number] / / [id number] Attune Femoral Porocoat Posterior Stabilized Size 5 Right Cementless Implanted:Qty: 1 on 07/10/2021 by Ghassan Castillo MD at [facility] Right: Knee 01/07/2030 [id number] / / [id number] Attune Medial Oralia Pat 35mm - [id number] Implanted:Qty: 1 on 07/10/2021 by Ghassan Castillo MD at [facility] Right: Knee [employer] 02/06/2026 [id number] / / [id number] Attune Rp Tib Base Sz 5 Por - [id number] Implanted:Qty: 1 on 07/10/2021 by Ghassan Castillo MD at [facility] Right: Knee [employer] 01/07/2031 [id number] / / [id number] Attune Ps Rp Insrt Sz5 5mm - [id number] Implanted:Qty: 1 on 07/10/2021 by Ghassan Castillo MD at [facility] Right: Knee [employer] 10/07/2025 [id number] / / [id number] Total Knee Depuy - [id number] Implanted:Qty: 1 on 07/10/2021 by Ghassan Castillo MD at [facility] Right: Knee [employer] [id number] / / Procedures Procedure Name Priority Date/Time Associated Diagnosis Comments COVID-19, BIGGS ID NOW, PCR Routine 06/13/2023 10:03 AM CDT Encounter for screening laboratory testing for COVID-19 virus from Last 3 Months Results * Covid-19, Biggs ID Now, PCR (06/13/2023 10:03 AM CDT) Covid Source Nasal 06/13/2023 10:42 AM CDT [facility] Covid-19, ID Now PCR NEGATIVE Negative 06/13/2023 10:42 AM CDT [facility] Comment: Negative results should be treated as presumptive and, if inconsistent with clinical signs and symptoms or necessary for patient management, should be tested with an alternative molecular assay. Testing was performed using the Biggs ID NOW COVID-19 2.0 assay. Swab (Nasal) 06/13/2023 10:0 3 AM CDT 06/13/2023 10:16 AM CDT Jere Mercer PA-C [facility] ORDERABLES [facility] [address] [place] [address] from Last 3 Months Advance Directives For more information, please contact: [phone] Latest Code Status on File Code Status Date Activated Date Inactivated Comments Full Code 07/10/2021 1:38 PM 07/11/2021 12:43 PM Care Teams Sample Tester Relationship Specialty Start Date End Date Marian Spaulding MD [address] [place] [address] [address] [place] [phone] PCP - General 06/26/21
--- NOTE | 2023-06-18 15:00 | XR_ITS ---
Patient: SARAH ESTRADA Facility:?[facility] Patient ID:?[id number] Site Patient ID:?[id number]. Site :?[id number] Study:?DEXA-Bone Density -06/18/2023 3:06:42 PM Ordering Physician:MACARENA Final Report: DXA BONE MINERAL DENSITY STUDY Reason for exam: Screening for osteoporosis. Current height (in): 62.5. Weight (lb): 190. Menopause age: 49. Ethnicity: White. 1. Have you had a previous hip or vertebral fracture? No. 2. Have you had any fractures during your adult life which did not result from significant trauma (e.g., auto accident)? No. 3. Did either of your parents have a hip fracture? Yes. 4. Do you smoke? No. 5. Have you ever taken Glucocorticoids? Yes. 6. Do you have rheumatoid arthritis? No. 7. Do you have secondary osteoporosis? No. 8. Do you drink 3 or more alcoholic drinks per day? No. 9. Are you being treated for osteoporosis? No. 10. Have you ever taken any of the following medications: Actonel, Evista, Fosamax, Miacalcin, Reclast, Boniva, Forteo, HRT (i.e., estrogen/hormone therapy), Protelos, Prolia, Vitamin D, Calcium, other ? please specify. ANSWER: Yes, Actonel (i.e., risedronate), Fosamax (i.e., alendronate), Vitamin D, HRT (i.e., estrogen/hormone therapy), and calcium. 11. Do you have any of the following medical conditions: Anorexia or bulimia, asthma or emphysema, end stage renal disease, hyperparathyroidism, any seizure disorders, cancer, inflammatory bowel diseases, hysterectomy, other ? please specify. ANSWER: Yes, inflammatory bowel diseases. 12. What was your maximum height (inches)? 64. 13. Do you perform weight bearing exercise regularly? Yes. 14. Do you regularly consume dairy products? Yes. 15. Do you drink caffeinated beverages? Yes. 16. At what age did your period start? 11. 17. Are you premenopausal? No. 18. How many full-term pregnancies have you had? 2. 19. Have you ever missed your period for more than 6 months in a row (not including or menopause)? No. TECHNIQUE: Bone mineral density study was performed using the [employer]. FINDINGS: The results of the study expressed as bone mineral density (BMD) are as follows: Lumbar spine L1 to L4: BMD: 0.925 g/cm2. T-score: -1.1. Z-score: 0.9 Neck Left: BMD: 0.781 g/cm2. T-score: -0.6. Z-score: 1.1 Right: BMD: 0.847 g/cm2. T-score: 0.0. Z-score: 1.7 Total Left: BMD: 0.890 g/cm2. T-score: -0.4. Z-score: 1.0 Right: BMD: 0.900 g/cm2. T-score: -0.3. Z-score: 1.1 IMPRESSION: Osteopenia. *Comparison exams done prior to 08/2019 were performed on different unit, [employer]. COMPARISON: Compared with scan of 06/20/2021, the bone mineral density has increased by 1.6 percent at the spine and decreased by 5.1 percent at the hip. FRAX 10-year Fracture Risk Major Osteoporotic Fracture: 19% Hip Fracture: 1.7% Reported Risk Factors: [place] () Neck BMD=0.781, BMI=34.2, parental fracture, glucocortoids Marcial Floyd M.D. Diagnostic Radiologist [email or web address] MONICA/heron D& Transcribed: 2:04 p.mGris shelby/Dictated by: Marcial Floyd MD @ 06/19/2023 10:18:00 AM Signed by:?Marcial Floyd MD @06/19/2023 2:28:32 PM (Electronic Signature)
== END 2023-06-18 14:14 | disposition home or self-care (01) ==
LOC: RAD 14:13
PROVIDERS: PCP Nurse Practitioner Family; Visit Provider Nurse Practitioner Family
DX: Z13.820 Encounter for screening for osteoporosis (principal); M85.88 Other specified disorders of bone density and structure, other site
CPT/HCPCS: 77080

== ENCOUNTER 2023-12-09 11:33 | Outpatient (CLI) | payer OTHER, SELFPAY ==
--- OUTSIDE RECORDS SUMMARY | 2023-12-09 10:19 | XMS_ITS | Clinical Summary ---
Author Organization [facility] Address [address] [place] [address] Care Team Providers Care Tax Manager Cpa Name Role Phone Rona Estrella APRN, BRASS PLATER Primary Care Provi hernán Allergies Active Allergy Reactions Criticality Noted Date [...] day before breakfast Do not open capsule. Active Multiple Vitamins-Minerals (Daily Multivitamin) capsule Take 1 mg by mouth 2 (two) times a day Melaluca brand multivitamin packets containing more than 1 pill Active aspirin 81 MG EC tablet Take 81 mg by mouth 1 (one) time each day Active psyllium (METAMUCIL) 58.12 % packet Take 1 packet by mouth 3 (three) times a day Constipation Active DULoxetine (CYMBALTA) [address] capsuleIndications: [...] every night 90 capsule 3 06/21/2020 Active Additional Information Patient taking differently: 200 mgOral Nightly, Reported on 10/18/2023 acetaminophen (TYLENOL 8 HOUR) 650 MG 8 hr tablet Take 2 tablets (1,300 mg total) by mouth every 8 hours Active verapamil SR (CALAN-SR) 180 MG CR tabletIndications:E ssential hypertension TAKE 1 TABLET TWICE DAILY (DO NOT CRUSH OR CHEW) 180 tablet 3 02/28/2021 Active NON FORMULARYIndication s:1:1 CBD: THC cannabis product 2.5 mg THC, 2.5mg CBD per tablet 1.5 tablets 1 (one) time each day in the morning Active NON FORMULARYIndication s:1:6 CBD: THC cannabis product 4.3 mg THC,0.7mg CBD per tablet 1.5 tablets at bed time Active celecoxib (CeleBREX) 100 MG capsule Take 1 capsule (100 mg total) by mouth 2 (two) times a day 05/21/2021 Active atorvastatin (LIPITOR) 10 MG tablet 07/17/2021 Active Linzess 290 MCG capsule 02/15/2023 Active cyclobenzaprine (FLEXERIL) 5 MG tabletIndications:A cute buttock pain Take 1 tablet (5 mg total) by mouth 3 (three) times a day if needed for muscle spasms for up to 7 days 21 tablet 02/28/2023 Active albuterol HFA (PROVENTIL HFA;VENTOLIN HFA) 108 (90 Base) MCG/ACT inhalerIndications: Bronchospastic Disease Inhale 2 puffs every 6 (six) hours if needed for shortness of breath (cough) 18 g 10/18/2023 Active azithromycin (Zithromax Z-Ernesto) 250 MG tabletIndications:B ronchitis Take 2 tablets the first day, then 1 tablet daily for 4 days. 6 tablet 10/18/2023 Active Active Problems Problem Noted Date Diagnosed Date Arthralgia 11/24/2023 Bilateral lower extremity edema 11/24/2023 Constipation 11/24/2023 Depression 11/24/2023 Dry eyes 11/24/2023 Nonexertional chest pain 11/24/2023 Osteoarthritis of both knees 11/24/2023 Encounter for screening for malignant neoplasm o f colon 11/24/2023 Post herpetic neuralgia 11/24/2023 Shingles 11/24/2023 Thrush, oral 11/24/2023 Anxiety 11/24/2023 Gastroesophageal reflux disease 11/24/2023 Hypertension 11/24/2023 Chronic neck pain 11/24/2023 Chronic pain 11/24/2023 Hyperlipidemia 11/24/2023 Sleep apnea 11/24/2023 Hypothyroidism 11/24/2023 History of total right knee replacement 07/26/19 [...] Encounters Date Type Department Care Team Description 11/24/2023 1:43 PM CDT - 11/24/2023 11:59 PM CDT Hospital Encounter [facility] [address] [place] [id number] Discharge Disposition: Home or Self Care 11/24/2023 1:42 PM CDT Hospital Encounter [facility] [address] [place] [id number] Discharge Disposition: Home or Self Care 11/24/2023 1:15 PM CDT Office Visit [facility] [address] [place] [id number] Ayad Suero, CINDI Hip injury, left, initial encounter (Primary Dx); Left knee injury, initial encounter; Hip strain, left, initial encounter; Arthritis of left knee 10/18/2023 10:45 AM CDT Office Visit [address] [place] [address] Nancy Moreno, 911 EMERGENCY DISPATCHER, BRASS PLATER Bronchitis (Primary Dx); Viral URI; Encounter for screening laboratory testing for COVID-19 virus from Last 3 Months Immunizations Name Administration Dates Next Due COVID-19, mRNA, LNP-S, PF, 3 0mcg/0.3mL dose Pfizer 12/22/2020,2020,05/18/2020 Flu Vaccine High Dose 65yrs and Older IM 12/23/2022,12/03/2021,12/06/2020,01/12 H1N1 All Forms 03/06/2009 Hepatitis A 08/21/2006 Hepatitis B 11/18/2008 INFLUENZA QUADRIVALENT MDV (IM) 12/03/2021 Influenza 6mo-64yrs Quad Pre servative Free IM 12/03/2021,02/18/2019,02/18/2019,01/12,01/27/2017,12/31/2015,12/06/2014 ,12/08/2012,01/09/2012,01/08/2011,02/07,12/28/2009,03/06/2009 Influenza Whole 12/28/2009 Influenza, Split Virus, Triv alent, Preservative 12/06/2014,12/08/2012,01/09/2012,01/08,02/06/2009 Influenza, Trivalent, PF 02/20/2010 Pneumococcal Conjugate 13-Valent 08/08/2014 Pneumococcal Polysaccharide 02/18/2020 [...] Packs/Day Years Used Date Smoking Tobacco: Never Passive Smoke Exposure: Never Smokeless Tobacco: Never Tobacco Cessation:Counseling Given: Not Answered Alcohol Use Standard Drinks/Week Comments Not Currently [...] than three times a week 01/12/2018 Attends [employer] Services More than 4 times per year [...] Answer Date Recorded PHQ-9 Total Score 0 10/18/2023 Hunger Vital Sign Answer Date Recorded Within [...] Sign Reading Time Taken Comments Blood Pressure 120/69 11/24/2023 1:32 PM CDT Pulse 73 11/24/2023 1:32 PM CDT Temperature 36.4 ??C (97.5 ??F) 11/24/2023 1:32 PM CD T Respiratory Rate 20 11/24/2023 1:32 PM CDT Oxygen Saturation 93% 10/18/2023 10:45 AM CDT Inhaled Oxygen Concentration - - Weight 92.2 kg (203 lb 4.8 oz) 11/24/2023 1:32 P M CDT Height 157 cm (5' 1.81) 11/24/2023 1:32 PM CDT Body Mass Index 37.41 11/24/2023 1:32 PM CDT Plan of Treatment Health Maintenance Due Date Last Done Comments Bone Density Scan 1954 CT Colonography 1954 FIT-DNA 1955 Sigmoidoscopy 1955 iFOBT 1955 Medicare Annual Wellness Visit (AWV) 1972 Zoster Vaccines (1 of 2) 2004 Mammogram 04/18/2021 04/18/2020, 02/03/2018, 02/10/2017, Additional history exists COVID-19 Vaccine ( season) 2023 08/05/2023, 12/23/2022, 12/03/2021, Additional history exists Colonoscopy 02/22/2024 02/21/2014 Colorectal Cancer Screening 02/22/2024 Fall Risk Performed 06/12/2024 06/13/2023 DTaP,Tdap,and Td Vaccines (4 - Td or Tdap) 02/17/2030 02/18/2020, 02/18/2020, 04/05/2009 Pap Smear Discontinued 01/12/2018 Pneumococcal Vaccine: 65+ Years Completed 02/18/2020, 08/08/2014 Influenza Vaccine Completed 11/25/2023, , 12/03/2021, Additional history exists HPV Vaccines Aged Out No longer eligi ble based on patient's age to complete this topic Medical Devices Implanted Type Area Fire Management Officer Device Identifier Shelf Expiration Date Model / Serial / Lot Depuy/Cmw 2g - [id number] Implanted:Qty: 1 on 07/10/2021 by Ghassan Castillo MD at [facility] Right: Knee [employer]uy [employer] 09/07/2023 [id number] / / [id number] Attune Femoral Porocoat Posterior Stabilized Size 5 Right Cementless Implanted:Qty: 1 on 07/10/2021 by Ghassan Castillo MD at [facility] Right: Knee 01/07/2030 [id number] / / [id number] Attune Medial Oralia Pat 35mm - [id number] Implanted:Qty: 1 on 07/10/2021 by Ghassan Castillo MD at [facility] Right: Knee [employer] 02/06/2026 [id number] / / [id number] Attune Rp Tib Base Sz 5 Por - [id number] Implanted:Qty: 1 on 07/10/2021 by Ghassan Castillo MD at [facility] Right: Knee [employer] 01/07/2031 [id number] / / [id number] Attune Ps Rp Insrt Sz5 5mm - [id number] Implanted:Qty: 1 on 07/10/2021 by Ghassan Castillo MD at [facility] Right: Knee [employer]uy [employer] 10/07/2025 [id number] / / [id number] Total Knee Depuy - [id number] Implanted:Qty: 1 on 07/10/2021 by Ghassan Castillo MD at [facility] Right: Knee [employer]uy [employer] [id number] / / Procedures Procedure Name Priority Date/Time Associated Diagnosis Comments XR KNEE 4+ VIEWS LEFT Today 11/24/2023 2:04 PM CDT Left knee injury, initial encounter XR HIP 2-3 VIEWS LEFT WITH PELVIS Today 11/24/2023 2:04 PM CDT Hip injury, left, initial encounter COVID-19, BIGGS ID NOW, PCR Routine 10/18/2023 11:11 AM CDT Encounter for screening laboratory testing for COVID-19 virus MAMMOGRAM BREAST SCREENING TOMOSYNTHESIS BILATERAL Routine 04/18/2020 2:50 PM HEART COORDINATOR Encounter for screening mammogram for malignant neoplasm of breast PAP TEST Routine 01/12/2018 2:31 PM HEART COORDINATOR Screening for cervical cancer from Last 3 Months or Most Recently Relevant to Health Maintenance Results * X-ray Knee 4+ Views Left (11/24/2023 2:04 PM CDT) Anatomical Region Laterality Modality Lower Extremities, Knee, Patella Left Digital Radiography Impressions 11/24/2023 2:21 PM CDT Advanced degenerative change left knee. ??Right total knee arthroplasty. Narrative 11/24/2023 2:21 PM CDT INDICATION: left knee injury COMPARISON: 11/21/2020 FINDINGS: Right knee: Right total knee arthroplasty. Left knee: Advanced degenerative change medial compartment, progressed from previous exam. ??Otherwise moderate degenerative change left knee. ??No acute fracture. ??No soft tissue abnormality. ??No evidence of joint effusion. Procedure Note Gomez Mills MD - 11/24/2023 INDICATION: left knee injury COMPARISON: 11/21/2020 FINDINGS: Right knee: Right total knee arthroplasty. Left knee: Advanced degenerative change medial compartment, progressedfrom previous exam. Otherwise moderate degenerative change left knee. Noacute fracture. No soft tissue abnormality. No evidence of jointeffusion. IMPRESSION: Advanced degenerative change left knee. Right total knee arthroplasty. Ayad Suero PA-C IMG XR PROCEDURES * X-ray hip 2-3 views left with pelvis (11/24/2023 2:04 PM CDT) Anatomical Region Laterality Modality Lower Extremities, Hip, Pelvis Left D igital Radiography Impressions 11/24/2023 2:22 PM CDT Degenerative change bilateral hips, right greater than left. Narrative 11/24/2023 2:22 PM CDT INDICATION: left hip pain/injury COMPARISON: 12/16/2013 FINDINGS: Moderate right and mild left hip degenerative change. ??No acute fracture. ??No soft tissue abnormality. ??SI joints appear normal. Procedure Note Gomez Mills MD - 11/24/2023 INDICATION: left hip pain/injury COMPARISON: 12/16/2013 FINDINGS: Moderate right and mild left hip degenerative change. No acute fracture.No soft tissue abnormality. SI joints appear normal. IMPRESSION: Degenerative change bilateral hips, right greater than left. Ayad Suero PA-C IMG XR PROCEDURES * Covid-19, Biggs ID Now, PCR (10/18/2023 11:11 AM CDT) Covid Source Nasal 10/18/2023 11:25 AM CDT [facility] Covid-19, ID Now PCR NEGATIVE Negative 10/18/2023 11:25 AM CDT [facility] Comment: Negative results should be treated as presumptive and, if inconsistent with clinical signs and symptoms or necessary for patient management, should be tested with an alternative molecular assay. Testing was performed using the Biggs ID NOW COVID-19 2.0 assay. Swab (Nasal) 10/18/2023 11:1 1 AM CDT 10/18/2023 11:13 AM CDT Nancy Moreno APRN, [facility] ORDERABLES [facility] [address], [address] [place] [address] * Mammogram breast screening tomosynthesis bilateral (04/18/2020 2:50 PM HEART COORDINATOR) Anatomical Region Laterality Modality Breast Bilateral Mammography 04/18/2020 2:50 PM HEART COORDINATOR Impressions 04/18/2020 3:39 PM HEART COORDINATOR IMPRESSION: BILATERAL BREASTS Negative; no evidence of malignancy. Routine follow-up is recommended in 1 year, or at next clinically-appropriate interval. ASSESSMENT: BI-RADS 1: Final Overall Assessment: Negative ResultCode BIRADS: 1 Side: B-Bilateral Breast composition: 2-There are scattered areas of fibroglandular density Recommendation: N-Normal interval follow up in 12 months CAD REVIEW: Computer aided detection equipment was used during the interpretation of this study.- Narrative 04/18/2020 3:39 PM HEART COORDINATOR EXAM DESCRIPTION: MAMMOGRAM BILATERAL SCREENING DIGITAL WITH CARMEL INDICATION: 64 y/o ??F. ??screening mammogram. RISK FACTOR: Personal: Post-menopausal patient Family: No family history of breast cancer PROCEDURES PERFORMED: Breast reduction, Bilateral Breast, 03/10/2009, Benign COMPARISON: Comparison is made to images from 11/26/2013 (Bilateral) and images from 02/10/2017 (Bilateral) and images from 04/10/2018 (Bilateral) FINDINGS: Routine bilateral combination 2D/DBT screening examination including CC and MLO projections. There are scattered areas of fibroglandular density. ??No significant masses, calcifications or other abnormalities are seen. Procedure Note Gomez Mills MD - 04/18/2020 EXAM DESCRIPTION: MAMMOGRAM BILATERAL SCREENING DIGITAL WITH CARMEL INDICATION: 64 y/o F. screening mammogram. RISK FACTOR: Personal: Post-menopausal patient Family: No family history of breast cancer PROCEDURES PERFORMED: Breast reduction, Bilateral Breast, 03/10/2009, Benign COMPARISON: Comparison is made to images from 11/26/2013 (Bilateral) and images from 02/10/2017 (Bilateral) and images from 04/10/2018 (Bilateral) FINDINGS: Routine bilateral combination 2D/DBT screening examination including CC and MLO projections. There are scattered areas of fibroglandular density. No significant masses, calcifications or other abnormalities are seen. IMPRESSION: BILATERAL BREASTS Negative; no evidence of malignancy. Routine follow-up is recommended in 1 year, or at next clinically-appropriate interval. ASSESSMENT: BI-RADS 1: Final Overall Assessment: Negative ResultCode BIRADS: 1 Side: B-Bilateral Breast composition: 2-There are scattered areas of fibroglandulardensity Recommendation: N-Normal interval follow up in 12 months CAD REVIEW: Computer aided detection equipment was used during the interpretation of this study.- Ruchi Bazzi MD IMG BI PROCEDURES * Pap smear (01/12/2018 2:31 PM HEART COORDINATOR) Sure Path PAP, screen 01/12/2018 2:31 PM HEART COORDINATOR 01/13/2018 3:31 PM HEART COORDINATOR Narrative [facility] - 01/16/2018 9:36 AM HEART COORDINATOR ? [facility] ? [address] ?[place] [address] ? Patient: ?YVONNE GARCIAS ? Procedure: ? 01/12/2018 14:31 /Age/Sex: ??1955, 62 Y, F ? Received: ?01/13/2018 15:31 ?Accession #: ?? [id number] Billing: ?[id number] ?Patient Location: [facility] ?OFFICE Ordered by: ?? RONA ESTRELLA, 911 EMERGENCY DISPATCHER, BRASS PLATER ? Attending: ? RONA ESTRELLA, ? 911 EMERGENCY DISPATCHER, BRASS PLATER ? CASTING AND LOCKER ROOM SERVICER CYTOLOGY FINAL REPORT SPECIMEN: (A) SURE PATH PAP, SCREEN SPECIMEN DESCRIPTION: Vaginal Received cloudy specimen in SurePath vial. CLINICAL INFORMATION: ?? Menopause: Y ?? Prev.normal: 2012 SPECIMEN ADEQUACY: Satisfactory for Evaluation GENERAL CATEGORIZATION: Negative for Intraepithelial Lesion or Malignancy PAP Test Disclaimer Cervical cytology is a screening test primarily for squamous cancer and its precursors and has associated false-negative and false-positive results. Regular sampling and follow-up of unexplained clinical signs and symptoms are recommended to minimize the impact of false negative and false positive results. Screened By: Signed By: TAM MAE(ASCP) <Sign Out Dr. Wisdom> Reported: ??01/16/2018 ? Page 1 of 1 Rona Estrella APRN, BRASS PLATER LAB CYTOLOG Y ORDERABLES [facility] [address] [place] [address] from Last 3 Months or Most Recently Relevant to Health Maintenance Advance Directives For more information, please contact: [phone] * Full Code (Latest Code Status on File) Date Activated Date Inactivated Comments 07/10/2021 1:38 PM 07/11/2021 12:43 PM Care Teams Tax Manager Cpa Relationship Specialty Start Date End Date Rona Estrella, LUISA, BRASS PLATER [address] [facility] [place] [address] PCP - General Family Medicine 11/24/23
--- OUTSIDE RECORDS SUMMARY | 2023-12-09 10:19 | XMS_ITS | Clinical Summary ---
Author Organization [facility] Address [address] [place] [address] Care Team Providers Care Water Chemist Name Role Phone Elsewhere, Pcp Primary Care Provider Unavailabl e Source Comments Patient records contain information from all sites at [facility]. For routine questions regarding patient records, call [phone] during business hours, M-F 8:00 AM - 5:00 PM Central Time. Record requests for emergency care only can be directed to [phone] at any time.[facility] Allergies Active Allergy Reactions Criticality Noted Date Comments Penicillins Hives (Reselect Reaction),Rash Medium 02/27/2006 Sulfa (Sulfonamide Antibiotics) GI intolerance 02/27/2006 Vancomycin Anaphylaxis,Hives (Reselect Reaction) High 02/19/2010 Medications Medication Sig Dispensed Refills Start Date End Date Status DULoxetine (CYMBALTA) [address] capsule Take 60 mg by mouth daily. Active levothyroxine (SYNTHROID, LEVOTHROID) 112 mcg tablet Take 112 mcg by mouth every morning before breakfast. Active esomeprazole (NexIUM) [address] capsule Take 20 mg by mouth every morning before breakfast. Active gabapentin (NEURONTIN) 100 mg capsule Take 100 mg by mouth daily. Active gabapentin (NEURONTIN) 100 mg capsule Take 300 mg by mouth at bedtime. Active amitriptyline (ELAVIL) 50 mg tablet Take 50 mg by mouth at bedtime. Active verapamiL (VERELAN) 180 mg 24 hr capsule Take 180 mg by mouth daily. Active linaCLOtide (LINZESS) 145 mcg capsule Take 145 mcg by mouth every morning before breakfast. Active acetaminophen (TYLENOL 8 HR) 650 mg ER tablet Take 1,300 mg by mouth every 8 (eight) hours. Active celecoxib 10 mg/mL oral suspension Take 100 mg by mouth. 06/11/2022 Active Active Problems No known active problems [...] Comments Blood Pressure 130/65 05/16/2023 2:30 PM SETTER HELPER Pulse 66 05/16/2023 2:30 PM SETTER HELPER Temperature 36.4 ??C (97.5 ??F) 05/16/2023 2:30 PM CS T Respiratory Rate 18 05/16/2023 2:30 PM SETTER HELPER Oxygen Saturation 96% 05/16/2023 2:30 PM SETTER HELPER Inhaled Oxygen Concentration - - Weight 91.3 kg (201 lb 4.5 oz) 05/16/2023 11:12 AM SETTER HELPER Height 157.7 cm (5' 2.09) 11/13/2020 4:35 PM CD T Body Mass Index 36.71 11/13/2020 4:35 PM CDT Plan of Treatment Health Maintenance Due Date Last Done Comments Bone Density Scan (Osteoporo sis Screen) 1954 CT Colonography 1954 Cologuard 1955 FIT 1955 Hepatitis C Screening 1954 Zoster Vaccines (1 of 2) 2004 Colonoscopy 09/05/2015 09/04/2005 Colorectal Cancer Screening 09/05/2015 Mammogram 04/18/2021 04/18/2020, 02/11/2020, 04/10/2018, Additional history exists Depression Screening (Annual PHQ-2) 03/10/2023 Fall Risk Screen (Annual) 03/10/2023 COVID-19 Vaccine (2023-2 5 season) 2023 08/05/2023, 12/23/2022, 12/03/2021, Additional history exists Influenza Vaccine (#1) 2023 3, 12/03/2021, 12/06/2020, Additional history exists Thyroid Stimulating Hormone (TSH) test for thyroid function 05/15/2024 05/16/2023, 04/27/2020, 02/02/2019, Additional history exists Fasting Glucose for Diabetes Screening 05/15/2026 05/16/2023, 11/13/2020, 12/24/2019, Additional history exists DTaP,Tdap,and Td Vaccines (3 - Td or Tdap) 02/17/2030 02/18/2020, 04/05/2009 Cervical Cancer Screening Discontinued 01/12/2018 Pneumococcal vaccine (65+ years) Completed 02/18/20, 08/08/2014 Procedures Procedure Name Priority Date/Time Associated Diagnosis Comments BASIC METABOLIC PANEL, S/P STAT 05/16/2023 11:34 AM SETTER HELPER THYROID-STIMULATING HORMONE-SENSITIVE (S-TSH) STAT 05/16/2023 11:34 AM SETTER HELPER from Last 3 Months or Most Recently Relevant to Health Maintenance Results * S-TSH (Thyroid-Stimulating Hormone - Sensitive) (05/16/2023 11:34 AM SETTER HELPER) TSH, Sensitive 2.7 0.3 - 4.2 mIU/L 05/16/2023 12:43 PM SETTER HELPER DTL Blood (Blood, Venous) 05/16/2023 11:34 AM SETTER HELPER 05/16/2023 12:00 PM SETTER HELPER Stacy Guzman P.A.-C., M.S. LAB BLOOD ADD -ON [facility] [address] [place] [address], [facility] [address] [place] [address] * Basic Metabolic Panel (05/16/2023 11:34 AM SETTER HELPER) Pathologist [facility] Potassium, P 4.4 3.6 - 5.2 mmol/L 05/16/2023 12:00 PM SETTER HELPER STMA Sodium, P 139 135 - 145 mmol/L 05/16/2023 12:00 PM SETTER HELPER STMA Chloride, P 104 98 - 107 mmol/L 05/16/2023 12:00 PM SETTER HELPER STMA Bicarbonate, P 27 22 - 29 mmol/L 05/16/2023 12:00 PM SETTER HELPER STMA Anion Gap, P 8 7 - 15 05/16/2023 12:00 PM SETTER HELPER STMA BUN (Blood Urea Nitrogen), P 19 6 - 21 mg/dL 05/16/2023 12:00 PM SETTER HELPER STMA Creatinine 0.86 0.59 - 1.04 mg/dL 05/16/2023 12:00 PM SETTER HELPER STMA Estimated GFR (eGFR) 74 >=60 mL/min/BSA 05/16/2023 12:00 PM SETTER HELPER STMA Comment: Estimated GFR calculated using the 2020 CKD_EPI creatinine equation. Calcium, Total, P 9.4 8.8 - 10.2 mg/dL 05/16/2023 12:00 PM SETTER HELPER STMA Glucose, P 91 70 - 140 mg/dL 05/16/2023 12:00 PM SETTER HELPER STMA Blood (Blood, Venous) 05/16/2023 11:34 AM SETTER HELPER 05/16/2023 11:39 AM SETTER HELPER Stacy Guzman P.A.-C., M.S. LAB BLOOD ADD -ON [facility] [address] [place] [address], [facility] [place] [address] [place] [address] from Last 3 Months or Most Recently Relevant to Health Maintenance Care Teams Water Chemist Relationship Specialty Start Date End Date Elsewhere, Pcp PCP - General Internal Medicine 05/16/23
--- OUTSIDE RECORDS SUMMARY | 2023-12-09 10:19 | XMS_ITS | Referral Summary ---
Author Organization [facility] Address [address] [place] [address] Care Team Providers Care Script Supervisor Name Role Phone Elsewhere, Pcp Primary Care Provider Unavailabl e Source Comments Patient records contain information from all sites at [facility]. For routine questions regarding patient records, call [phone] during business hours, M-F 8:00 AM - 5:00 PM Central Time. Record requests for emergency care only can be directed to [phone] at any time.[facility] Allergies Active Allergy Reactions Criticality Noted [...] Comments Blood Pressure 130/65 05/16/2023 2:30 PM NUCLEAR PHYSICS TEACHER Pulse 66 05/16/2023 2:30 PM NUCLEAR PHYSICS TEACHER Temperature 36.4 ??C (97.5 ??F) 05/16/2023 2:30 PM CS T Respiratory Rate 18 05/16/2023 2:30 PM NUCLEAR PHYSICS TEACHER Oxygen Saturation 96% 05/16/2023 2:30 PM NUCLEAR PHYSICS TEACHER Inhaled Oxygen Concentration - - Weight 91.3 kg (201 lb 4.5 oz) 05/16/2023 11:12 AM NUCLEAR PHYSICS TEACHER Height 157.7 cm (5' 2.09) 11/13/2020 4:35 PM CD T Body Mass Index 36.71 11/13/2020 4:35 PM CDT Plan of Treatment Not on file Procedures Procedure Name Priority Date/Time Associated Diagnosis Comments BASIC METABOLIC PANEL, S/P STAT 05/16/2023 11:34 AM NUCLEAR PHYSICS TEACHER THYROID-STIMULATING HORMONE-SENSITIVE (S-TSH) STAT 05/16/2023 11:34 AM NUCLEAR PHYSICS TEACHER from Last 3 Months or Most Recently Relevant to Health Maintenance Results * S-TSH (Thyroid-Stimulating Hormone - Sensitive) (05/16/2023 11:34 AM NUCLEAR PHYSICS TEACHER) TSH, Sensitive 2.7 0.3 - 4.2 mIU/L 05/16/2023 12:43 PM NUCLEAR PHYSICS TEACHER DTL Blood (Blood, Venous) 05/16/2023 11:34 AM NUCLEAR PHYSICS TEACHER 05/16/2023 12:00 PM NUCLEAR PHYSICS TEACHER Stacy Guzman P.A.-C. MGrisS. LAB BLOOD ADD -ON [facility] [address] [place] [address], [facility] DTL [facility] [address] [place] [address] * Basic Metabolic Panel (05/16/2023 11:34 AM NUCLEAR PHYSICS TEACHER) Pathologist [facility] Potassium, P 4.4 3.6 - 5.2 mmol/L 05/16/2023 12:00 PM NUCLEAR PHYSICS TEACHER STMA Sodium, P 139 135 - 145 mmol/L 05/16/2023 12:00 PM NUCLEAR PHYSICS TEACHER STMA Chloride, P 104 98 - 107 mmol/L 05/16/2023 12:00 PM NUCLEAR PHYSICS TEACHER STMA Bicarbonate, P 27 22 - 29 mmol/L 05/16/2023 12:00 PM NUCLEAR PHYSICS TEACHER STMA Anion Gap, P 8 7 - 15 05/16/2023 12:00 PM NUCLEAR PHYSICS TEACHER STMA BUN (Blood Urea Nitrogen), P 19 6 - 21 mg/dL 05/16/2023 12:00 PM NUCLEAR PHYSICS TEACHER STMA Creatinine 0.86 0.59 - 1.04 mg/dL 05/16/2023 12:00 PM NUCLEAR PHYSICS TEACHER STMA Estimated GFR (eGFR) 74 >=60 mL/min/BSA 05/16/2023 12:00 PM NUCLEAR PHYSICS TEACHER STMA Comment: Estimated GFR calculated using the 2020 CKD_EPI creatinine equation. Calcium, Total, P 9.4 8.8 - 10.2 mg/dL 05/16/2023 12:00 PM NUCLEAR PHYSICS TEACHER STMA Glucose, P 91 70 - 140 mg/dL 05/16/2023 12:00 PM NUCLEAR PHYSICS TEACHER STMA Blood (Blood, Venous) 05/16/2023 11:34 AM NUCLEAR PHYSICS TEACHER 05/16/2023 11:39 AM NUCLEAR PHYSICS TEACHER Stacy Guzman P.A.-C. MGrisS. LAB BLOOD ADD -ON [facility] [address] [place] [address], [facility] STMA [facility] [address] [place] [address] from Last 3 Months or Most Recently Relevant to Health Maintenance Care Teams Script Supervisor Relationship Specialty Start Date End Date Elsewhere, Pcp PCP - General Internal Medicine 05/16/23
--- OUTSIDE RECORDS SUMMARY | 2023-12-09 10:19 | XMS_ITS ---
Author Organization [facility] Address [address] [place] [address] Care Team Providers Care Shrimp Picker Name Role Phone Unavailable Unavailable Unavailable Surgery Details Not on file Complications Check Surgery Details section. Procedure Estimated Blood Loss Check Surgery Details section. Procedure Findings Check Surgery Details section. Procedure Specimens Taken Check Surgery Details section.
--- OUTSIDE RECORDS SUMMARY | 2023-12-09 10:19 | XMS_ITS | Encounter Summary ---
Author Organization [facility] Address [address] [place] [address] Care Team Providers Care Gas Engineer Name Role Phone Elsewhere, Pcp Primary Care Provider Unavailabl e Reason for Visit * Reason Onset Date Comments Triage 08/21/2023 Encounter Details Date Type Department Care Team (Latest Contact Info) Description 08/21/2023 Clinical Communication Department of Ophthalmology in [place], [place] [address] [place] [address] Provider, Unknown Triage Social History Tobacco Use Types Packs/Day Years [...] on file documented as of this encounter Plan of Treatment Not on file documented as of this encounter Visit Diagnoses Not on filedocumented in this encounter Care Teams Gas Engineer Relationship Specialty Start Date End Date Elsewhere, Pcp PCP - General Internal Medicine 05/16/23 documented as of this encounter
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
--- OUTSIDE RECORDS SUMMARY | 2023-12-09 10:19 | XMS_ITS | Encounter Summary ---
Author Organization [facility] er Address [address] [place] [address] Care Team Providers Care Supervisor Beater Room Name Role Phone Rona Estrella APRN, ASSEMBLY MACHINE TENDER Primary Care Provi hernán Encounter Details Date Type Department Care Team (Latest Contact Info) Description 11/24/2023 1:42 PM CDT Hospital Encounter [facility] Radiology [address] [place] [address] Discharge Disposition: Home or Self Care Social History Tobacco Use Types Packs/Day Years Used Date Smoking Tobacco: Never Passive Smoke Exposure: Never Smokeless Tobacco: Never Alcohol Use Standard [...] than three times a week 01/12/2018 Attends Zoroastrian Services More than 4 times per year [...] AM CDT documented as of this encounter Medications at Time of Discharge Medication Sig Dispensed Refills Start Date End Date acetaminophen (TYLENOL 8 HOUR) 650 MG 8 hr tablet Take 2 tablets (1,300 mg total) by mouth every 8 hours albuterol HFA (PROVENTIL HFA;VENTOLIN HFA) 108 (90 Base) MCG/ACT inhalerIndications:Bro nchospastic Disease Inhale 2 puffs every 6 (six) hours if needed for shortness of breath (cough) 18 g 10/18/2023 aspirin 81 MG EC tablet Take 81 mg by mouth 1 (one) time each day atorvastatin (LIPITOR) 10 MG tablet 07/17/2021 azithromycin (Zithromax Z-Ernesto) 250 MG tabletIndications:Bron jasmin Take 2 tablets the first day, then 1 tablet daily for 4 days. 6 tablet 10/18/2023 celecoxib (CeleBREX) 100 MG capsule Take 1 capsule (100 mg total) by mouth 2 (two) times a day 05/21/2021 DULoxetine (CYMBALTA) [address] capsuleIndications:Fib romyalgia TAKE 1 CAPSULE BY MOUTH ONCE DAILY 90 capsule 3 04/27/2020 esomeprazole (NEXIUM) [address] capsule Take 1 capsule (20 mg total) by mouth 1 (one) time each day before breakfast Do not open capsule. gabapentin (NEURONTIN) 300 MG capsuleIndications:Nec k pain,Fibromyalgia Take 1 capsule (300 mg total) by mouth every night 90 capsule 3 06/21/2020 levothyroxine (Euthyrox) 112 MCG tabletIndications:Hypo thyroidism, unspecified type Take 1 tablet (112 mcg total) by mouth 1 (one) time each day 90 tablet 3 06/21/2020 Linzess 290 MCG capsule 02/15/2023 Multiple Vitamins-Minerals (Daily Multivitamin) capsule Take 1 mg by mouth 2 (two) times a day Melaluca brand multivitamin packets containing more than 1 pill NON FORMULARYIndications:1 :1 CBD: THC cannabis product 2.5 mg THC, 2.5mg CBD per tablet 1.5 tablets 1 (one) time each day in the morning NON FORMULARYIndications:1 :6 CBD: THC cannabis product 4.3 mg THC,0.7mg CBD per tablet 1.5 tablets at bed time psyllium (METAMUCIL) 58.12 % packet Take 1 packet by mouth 3 (three) times a day Constipation verapamil SR (CALAN-SR) 180 MG CR tabletIndications:Esse ntial hypertension TAKE 1 TABLET TWICE DAILY (DO NOT CRUSH OR CHEW) 180 tablet 3 02/28/2021 documented as of this encounter Plan of Treatment Not on file documented as of this encounter Procedures Procedure Name Priority Date/Time Associated Diagnosis Comments XR KNEE 4+ VIEWS LEFT Today 11/24/2023 2:04 PM CDT Left knee injury, initial encounter documented in this encounter Results * X-ray Knee 4+ Views Left [...] arthroplasty. Ayad Suero PA-C IMG XR PROCEDURES documented in this encounter Visit Diagnoses Not on filedocumented in this encounter Care Teams Supervisor Beater Room Relationship Specialty Start Date End Date Rona Estrella, RAMP SERVICE AGENT, ASSEMBLY MACHINE TENDER [address] [place] [address] PCP - General Family Medicine 11/24/23 documented as of this encounter
--- OUTSIDE RECORDS SUMMARY | 2023-12-09 10:20 | XMS_ITS | Encounter Summary ---
Author Organization [facility] er Address [address] [place] [address] Care Team Providers Care Malted Milk Supervisor Name Role Phone Rona Estrella APRN, VICE PRESIDENT BUSINESS DEVELOPMENT Primary Care Provi hernán Encounter Details Date Type Department Care Team (Latest Contact Info) Description 11/24/2023 1:43 PM CDT - 11/24/2023 11:59 PM CDT Hospital Encounter [facility] [place] [facility] Radiology [address] [place], [place] [phone] Discharge Disposition: Home or Self Care Social [...] than three times a week 01/12/2018 Attends Temple Services More than 4 times per year [...] Name Priority Date/Time Associated Diagnosis Comments XR HIP 2-3 VIEWS LEFT WITH PELVIS Today 11/24/2023 2:04 PM CDT Hip injury, left, initial encounter documented in this encounter Results * X-ray hip 2-3 views left with [...] left. Ayad Suero PA-C IMG XR PROCEDURES documented in this encounter Visit Diagnoses Not on filedocumented in this encounter Care Teams Malted Milk Supervisor Relationship Specialty Start Date End Date Rona Estrella APRN, VICE PRESIDENT BUSINESS DEVELOPMENT [address] [place] [address] PCP - General Family Medicine 11/24/23 documented as of this encounter
--- OUTSIDE RECORDS SUMMARY | 2023-12-09 10:20 | XMS_ITS | Encounter Summary ---
Author Organization [facility] er Address [address] [place] [address] Care Team Providers Care Cabin Furnishings Installer Name Role Phone Rona Estrella APRN, E COMMERCE MARKETING MANAGER Primary Care Provi hernán Encounter Details Date Type Department Care Team (Late st Contact Info) Description 07/12/2021 Telephone [facility] [address] [place] [id number] Ligia Tilley RN [address] [place] [address] Social History Tobacco Use Types [...] than three times a week 01/12/2018 Attends Jainism Services More than 4 times per year [...] Out 06/13/2023 06/13/2023 06/13/2023 10:42 AM CDT COVID-19 Rule Out 10/18/2023 10/18/2023 10/18/2023 11:25 AM CDT documented as of this encounter Care Teams Cabin Furnishings Installer Relationship Specialty Start Date End Date Rona Estrella, PUTTER IN, E COMMERCE MARKETING MANAGER [address] [place] [address] PCP - General Family Medicine 11/24/23 documented as of this encounter
--- OUTSIDE RECORDS SUMMARY | 2023-12-09 10:20 | XMS_ITS | Encounter Summary ---
Author Organization [facility] er Address [address] [place] [address] Care Team Providers Care Sap Abap Developer Name Role Phone Rona Estrella APRN, COMPLETIONS MANAGER Primary Care Provi hernán Reason for Visit * Reason Onset Date Comments Med Refill 02/01/2020 Encounter Details Date Type Department Care Team (Late st Contact Info) Description 02/01/2020 Refill [facility] [address] [place] [id number] Ruchi Bazzi MD Fibromyalgia Social History Tobacco [...] than three times a week 01/12/2018 Attends Quaker Services More than 4 times per year [...] COVID-19? No / Unsure 01/15/2020 12:03 PM STORYBOARD ARTIST documented as of this encounter Miscellaneous Notes * Telephone Encounter - Mariana Monge RN - 02/01/2020 4:00 PM STORYBOARD ARTIST Pt requesting Amtriptyline 50mg refilled to [facility] YBOARD ARTIST documented in this encounter Plan of Treatment Not on file documented as of this encounter Visit Diagnoses Diagnosis Fibromyalgia Unspecified myalgia and myositis documented in this encounter Additional Health Concerns Infection Onset Date Last Indicated Resolved Time COVID-19 Rule Out 02/27/2021 02/27/2021 02/28/2021:39 AM STORYBOARD ARTIST COVID-19 Rule Out 07/04/2021 07/04/2021 07/05/2021 9:36 PM CDT COVID-19 Rule Out 06/13/2023 06/13/2023 06/13/2023 10:42 AM CDT COVID-19 Rule Out 10/18/2023 10/18/2023 10/18/2023 11:25 AM CDT documented as of this encounter Care Teams Sap Abap Developer Relationship Specialty Start Date End Date Rona Estrella, WHARFMASTER, COMPLETIONS MANAGER [address] [place] [address] PCP - General Family Medicine 11/24/23 documented as of this encounter
--- OUTSIDE RECORDS SUMMARY | 2023-12-09 10:20 | XMS_ITS | Encounter Summary ---
Author Organization [facility] er Address [address] [place] [address] Care Team Providers Care Group Managing Director Name Role Phone Rona Estrella APRN, MOLDER BENCH Primary Care Provi hernán Encounter Details Date Type Department Care Team (Late st Contact Info) Description 01/10/[address] [phone] Ruchi Bazzi MD Social History Tobacco Use [...] than three times a week 01/12/2018 Attends Cheondoism Services More than 4 times per year [...] Rule Out 02/27/2021 02/27/2021 02/28/2021 12:39 AM CASEWORKER PROTECTIVE SERVICES COVID-19 Rule Out 07/04/2021 07/04/2021 07/05/2021 9:36 PM CDT COVID-19 Rule Out 06/13/2023 06/13/2023 06/13/2023 10:42 AM CDT COVID-19 Rule Out 10/18/2023 10/18/2023 10/18/2023 11:25 AM CDT documented as of this encounter Care Teams Group Managing Director Relationship Specialty Start Date End Date Rona Estrella, SUPERVISOR SULFURIC ACID PLANT, MOLDER BENCH [address] [place] [address] PCP - General Family Medicine 11/24/23 documented as of this encounter
--- OUTSIDE RECORDS SUMMARY | 2023-12-09 10:20 | XMS_ITS | Encounter Summary ---
Author Organization [facility] er Address [address] [place] [address] Care Team Providers Care Billing Assistant Name Role Phone Rona Estrella APRN, JET ENGINE MECHANIC Primary Care Provi hernán Reason for Visit * Reason Comments Knee Injury Left - DOI 11/19/23 W C Hip Injury Left - DOI 11/19/23 W C Encounter Details Date Type Department Care Team (Late st Contact Info) Description 11/24/2023 1:15 PM CDT Office Visit [facility] Orthopedics [address] [place] [address] [id number] Ayad Suero PA-C [address] [place] [phone] Hip injury, left, initial encounter (Primary Dx); Left knee injury, initial encounter; Hip strain, left, initial encounter; Arthritis of left knee Social History Tobacco Use Types Packs/Day Years [...] than three times a week 01/12/2018 Attends Scientology Services More than 4 times per year [...] 20 11/24/2023 1:32 PM CDT Oxygen Saturation - - Inhaled Oxygen Concentration - - Weight 92.2 kg (203 lb 4.8 oz) 11/24/2023 1:32 P M CDT Height 157 cm (5' 1.81) 11/24/2023 1:32 PM CDT Body Mass Index 37.41 11/24/2023 1:32 PM CDT documented in this encounter Progress Notes * Ayad Suero PA-C - 11/24/2023 1:15 PM CDT Subjective Patient ID: Yvonne Garcias is a 68 y.o. female. Chief Complaint: Chief Complaint Patient presents with Knee Injury Left - DOI 11/19/23 WC Hip Injury Left - DOI 11/19/23 Patient presents today for acute left hip and left knee pain after work-related injury. On 11/19/2023 she slipped in her freezer at work, tripped and fell but caught herself with her hands. She did not land on her leg. She has pain in her left groin/hip region and the knee. She is known to have arthritis of the knee. She has been using Tylenol, tramadol, ice and a cane. There is no tingling or numbness. 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 Mildly antalgic gait pattern. Left hip tender in the groin region good active hip flexion with good internal and external rotation. 5 out of 5 quad strength. Slightly tender trochanteric bursa region. Knee slight diffuse tenderness specially the medial joint line. She hasfull extension flexion to 120 degrees. Negative patellar apprehension. Nontender patella. No valgusor varus instability. Left lower extremity is NVI Radiology Review of images today of the left hip note no obvious acute bony abnormality. Review of images today of the left knee notes end-stage varus pattern degenerative arthritis but noobvious acute fractures Assessment/Plan Diagnoses and all orders for this visit: Hip injury, left, initial encounter - X-ray hip 2-3 views left with pelvis; Future Left knee injury, initial encounter - X-ray Knee 4+ Views Left; Future Hip strain, left, initial encounter Arthritis of left knee I discussed these finds with the patient. I think she has left hip strain and has aggravated the arthritis of her left knee. She is already on Celebrex twice a day and I do not think we should add more NSAIDs. She may use acetaminophen up to 4 times daily with a maximum dose of 4000 mg in 24-hour period. Continue ice versus heat. Weightbearing is as tolerated. We discussed work restrictions but she feels she can do her normal job and does not return to work until this coming Friday for her nextscheduled day. A note was provided noting no restrictions. She did inquire about a cortisone injection however she just injured her knee and was having no pain with her knee prior to the injury. At th is time I do not recommend a cortisone injection as she has an acute injury. If it is several weeksshe is not recovering and would like to see one of our knee providers to consider cortisone she cancontact us for that referral. documented in this encounter Plan of Treatment [...] PROCEDURES documented in this encounter Visit Diagnoses Diagnosis Hip injury, left, initial encounter- Primary Left knee injury, initial encounter Hip strain, left, initial encounter Arthritis of left knee documented in this encounter Care Teams Billing Assistant Relationship Specialty Start Date End Date Rona Estrella, CLEANING TECHNICIAN, JET ENGINE MECHANIC [address] [facility] [address] PCP - General Family Medicine 11/24/23 documented as of this encounter
--- OUTSIDE RECORDS SUMMARY | 2023-12-09 10:20 | XMS_ITS | Encounter Summary ---
Author Organization [facility] er Address [address] [place] [address] Care Team Providers Care Political Science Instructor Name Role Phone Rona Estrella YARDAGE CONTROL OPERATOR, CLOTH NEUTRALIZER Primary Care Provi hernán Encounter Details Date Type Department Care Team (Late st Contact Info) Description 04/21/2018 Refill [facility] [address] [place] [address] Rona Estrella, YARDAGE CONTROL OPERATOR, CLOTH NEUTRALIZER [address] [place] [id number] Fibromyalgia Social History Tobacco Use Types Packs/Day [...] than three times a week 01/12/2018 Attends [employer] More than 4 times per year [...] MA - 04/22/2018 3:03 PM CST Noted PANEL PADDER * Telephone Encounter - Shreya Estrada - 04/22/2018 2:42 PM CST Pt returned call to clinic. Message from Zenon Estrella regarding Rx was relayed to Pt. PANEL PADDER * Telephone Encounter - Rona Estrella APRN, CNP - 04/21/2018 1:35 PM BACK PANEL PADDER Please contact the patient and let her know this is been done per her request. Thanks Zenon PANEL PADDER * Telephone Encounter - Sary Alvarez MA - 04/21/2018 1:16 PM CST I have pended a medication refill for your review. PANEL PADDER * Telephone Encounter - Lucia North - 04/21/2018 12:18 PM CST The patient would like her dulexatine 60 mg called to [facility] and a call back when completed.She has done the same thing with her other Rxs and would like this one switched over as well. PANEL PADDER documented in this encounter Plan of Treatment Not on file documented as of this encounter Visit Diagnoses Diagnosis Fibromyalgia Unspecified myalgia and myositis documented in this encounter Additional Health Concerns Infection Onset Date Last Indicated Resolved Time COVID-19 Rule Out 11/18/2019 11/18/2019 11/19/2019 12:15 PM CDT COVID-19 Rule Out 02/27/2021 02/27/2021 02/28/2021 12:39 AM BACK PANEL PADDER COVID-19 Rule Out 07/04/2021 07/04/2021 07/05/2021 9:36 PM CDT COVID-19 Rule Out 06/13/2023 06/13/2023 06/13/2023 10:42 AM CDT COVID-19 Rule Out 10/18/2023 10/18/2023 10/18/2023 11:25 AM CDT documented as of this encounter Care Teams Political Science Instructor Relationship Specialty Start Date End Date Rona Estrella, YARDAGE CONTROL OPERATOR, CLOTH NEUTRALIZER [address] [place] [address] PCP - General Family Medicine 11/24/23 documented as of this encounter
--- OUTSIDE RECORDS SUMMARY | 2023-12-09 10:20 | XMS_ITS | Encounter Summary ---
Author Organization [facility] er Address [address] [place] [address] Care Team Providers Care Paraprofessional Interpreter Name Role Phone Marian Spaulding MD Primary Care Provider Reason for Visit * Reason Comments Headache Symptoms started on Friday - would like covid test & paxlovid, if qualify Shortness of Breath Fever Chills no taste Generalized Body Aches Cough Encounter Details Date Type Department Care Team (Late st Contact Info) Description 10/18/2023 10:45 AM CDT Office Visit [address] [place] [id number] Nancy Moreno, JACKER FEEDER, CLEANER TOUCH UP WORKER [address] [facility] [address] [place] [address] Bronchitis (Primary Dx); Viral URI; Encounter for screening laboratory testing for COVID-19 virus Social History Tobacco Use Types Packs/Day Years [...] Sign Reading Time Taken Comments Blood Pressure 122/76 10/18/2023 10:45 AM CDT Pulse 88 10/18/2023 10:45 AM CDT Temperature 36.6 ??C (97.8 ??F) 10/18/2023 10:45 AM C DT Respiratory Rate 20 10/18/2023 10:45 AM CDT Oxygen Saturation 93% 10/18/2023 10:45 AM CDT Inhaled Oxygen Concentration - - Weight 90.5 kg (199 lb 10 oz) 10/18/2023 10:45 A M CDT Height 158.9 cm (5' 2.56) 10/18/2023 10:45 AM C DT Body Mass Index 35.86 10/18/2023 10:45 AM CDT documented in this encounter Patient Instructions * Patient Instructions* Nancy Moreno APRN, CNP - 10/18/2023 10:45 AM CDT Take medication as prescribed. Increased rest and fluids. OTC cough suppressants (i.e. Dextromethorphan), only if you discontinue the Tessalon Perles. OTC cough expectorants (i.e. Guaifenesin) Do not share cups or utensils and always practice good hand hygiene to help prevent spreading your infection. If cough last longer than 3 weeks follow up with your primary care provider. If symptoms worsen to include increased fatigue, shortness of breath, or fever, follow up sooner for further evaluation/testing. documented in this encounter Progress Notes * Nancy Moreno APRN, CNP - 10/18/2023 10:45 AM CDT Subjective History was provided by the patient. Yvonne Garcias is a 68 y.o. female who presents for evaluation of cold/flu symptoms ongoing for4 days. Patient denies any close contact with positive Covid 19, flu, or strep. Patient did not test for home Covid 19 but requesting to be tested here at today. Patient reports that she had some loss of smell for about 4 days now. (See ROS below for further details). Previously evaluated since symptoms began: no. Recent antibiotic use in the past 30 days: no. Exposure to anyone with similar symptoms/confirmed illness: no. Home cares to date: Took Tylenol, last dose was 0830 am this morning. Patient has no further concerns other than noted in ROS. Review of Systems Constitutional: Positive for appetite change (decrease appetite, but drinking enough fluids.), chills, fatigue and fever (patient reports that she did not take her temperature but she felt hot). HENT: Positive for postnasal drip and rhinorrhea. Negative for congestion, ear discharge, ear pain,sore throat and trouble swallowing. Respiratory: Positive for cough (productive cough. Patient denies any use of tobacco or vape. Denies any exposure to 2nd hand smoke. Denied any history of asthma or COPD.), shortness of breath (aftercoughing.) and wheezing (sometimes). Negative for chest tightness. Gastrointestinal: Negative for diarrhea, nausea and vomiting. Musculoskeletal: Positive for myalgias. Neurological: Positive for headaches. The following portions of the patient's chart were reviewed in this encounter and updated as appropriate: Tobacco Allergies Meds Problems Med Hx Surg Hx Fam Hx Allergies Allergen Reactions Vancomycin Anaphylaxis and Hives Penicillins Rash Flagyl [Metronidazole] GI upset Iodinated Contrast Media Had angiogram in [address] chest with contrast in 2007, withOUT reaction. Sulfa Antibiotics Nausea Only Morphine Nausea And Vomiting Intolerance Objective Blood pressure 122/76, pulse 88, temperature 36.6 ??C (97.8 ??F), resp. rate 20, height 1.589 m (5'2.56), weight 90.5 kg (199 lb 10 oz), SpO2 93%. Physical Exam Vitals reviewed. Constitutional: General: She is awake. She is not in acute distress. Appearance: Normal appearance. She is well-developed and well-groomed. She is not ill-appearing, toxic-appearing or diaphoretic. HENT: Head: Normocephalic and atraumatic. Right Ear: Hearing, tympanic membrane, ear canal and external ear normal. No drainage or tenderness. There is no impacted cerumen. Tympanic membrane is not perforated, erythematous or bulging. Left Ear: Hearing, tympanic membrane, ear canal and external ear normal. No drainage or tenderness.There is no impacted cerumen. Tympanic membrane is not perforated, erythematous or bulging. Nose: Nose normal. No nasal tenderness, congestion or rhinorrhea. Right Sinus: No maxillary sinus tenderness or frontal sinus tenderness. Left Sinus: No maxillary sinus tenderness or frontal sinus tenderness. Mouth/Throat: Lips: Angie. No lesions. Mouth: Mucous membranes are moist. No oral lesions. Pharynx: Oropharynx is clear. Uvula midline. No pharyngeal swelling, oropharyngeal exudate, posterior oropharyngeal erythema or uvula swelling. Tonsils: No tonsillar exudate or tonsillar abscesses. 1+ on the right. 1+ on the left. Cardiovascular: Rate and Rhythm: Normal rate. Pulses: Normal pulses. Heart sounds: Normal heart sounds. Pulmonary: Effort: Pulmonary effort is normal. No respiratory distress. Breath sounds: No stridor. Wheezing (upper lobes.) present. No rhonchi or rales. Chest: Chest wall: No tenderness. Musculoskeletal: Cervical back: Normal range of motion. No tenderness. Lymphadenopathy: Cervical: No cervical adenopathy. Neurological: General: No focal deficit present. Mental Status: She is alert and oriented to person, place, and time. Psychiatric: Mood and Affect: Mood normal. Behavior: Behavior normal. Behavior is cooperative. Assessment and Plan Diagnosis Plan 1. Bronchitis albuterol HFA (PROVENTIL HFA;VENTOLIN HFA) 108 (90 Base) MCG/ACT inhaler benzonatate (TESSALON) 100 MG capsule azithromycin (Zithromax Z-Ernesto) 250 MG tablet 2. Viral URI 3. Encounter for screening laboratory testing for COVID-19 virus Covid-19, Biggs ID Now, PCR History and exam most consistent with viral URI secondary to bronchitis. Discussed with patient during exam his lung sounds noted to have some wheezing on the upper lobes. Discussed treatment plan and supportive care as indicated below. Covid 19 test today was negative Take medication as prescribed. Increased rest and fluids. OTC cough suppressants (i.e. Dextromethorphan), only if you discontinue the Tessalon Perles. OTC cough expectorants (i.e. Guaifenesin) Do not share cups or utensils and always practice good hand hygiene to help prevent spreading your infection. If cough last longer than 3 weeks follow up with your primary care provider. If symptoms worsen to include increased fatigue, shortness of breath, or fever, follow up sooner for further evaluation/testing. Shared Decision Making process and patient involvement was used in the plan of care. The patient was discharged in stable condition with all questions being answered and addressed to the best of my ability. There were no apparent learning barriers identified when reviewing discharge instructions and discharge recommendations. When to proceed to the Emergency Room was reviewed with the patient. Recommended close follow up with their Primary Care Provider. The patient verbalized understanding andagreement with the diagnosis and treatment plan. Patient PCP is Marian Spaulding MD documented in this encounter Plan of Treatment Not on file documented as of this encounter Procedures Procedure Name Priority Date/Time Associated Diagnosis Comments COVID-19, BIGGS ID NOW, PCR Routine 10/18/2023 11:11 AM CDT Encounter for screening laboratory testing for COVID-19 virus documented in this encounter Results * Covid-19, Biggs ID Now, PCR (10/18/2023 11:11 AM CDT) Covid Source Nasal 10/18/2023 11:25 AM CDT [facility] Covid-19, ID Now PCR NEGATIVE Negative 10/18/2023 11:25 AM CDT [facility] Comment: Negative results should be treated as presumptive and, if inconsistent with clinical signs and symptoms or necessary for patient management, should be tested with an alternative molecular assay. Testing was performed using the Biggs ID NOW COVID-19 2.0 assay. Swab (Nasal) 10/18/2023 11:1 1 AM CDT 10/18/2023 11:13 AM CDT Nancy Moreno APRN, CNP LAB MOLECULAR DIAGNOSTICS ORDERABLES [facility] [address], [address] [place] [address] documented in this encounter Visit Diagnoses Diagnosis Bronchitis- Primary Bronchitis, not specified as acute or chronic Viral URI Acute upper respiratory infections of unspecified site Encounter for screening laboratory testing for COVID-19 virus documented in this encounter Care Teams Paraprofessional Interpreter Relationship Specialty Start Date End Date Marian Spaulding MD [address] [place] [phone] PCP - General 06/26/21 11/23/23 documented as of this encounter
== END 2023-12-09 11:34 | disposition home or self-care (01) ==
PROVIDERS: PCP Nurse Practitioner Family; Visit Provider Nurse Practitioner Family
DX: E55.9 Vitamin D deficiency, unspecified (principal); E78.5 Hyperlipidemia, unspecified; E03.9 Hypothyroidism, unspecified; I10 Essential (primary) hypertension; F32.A Depression, unspecified; F41.9 Anxiety disorder, unspecified; M79.7 Fibromyalgia
CPT/HCPCS: 80053; 80061; 82306; 84443; 85025

== ENCOUNTER 2024-03-18 13:56 | Outpatient (CLI) | payer MEDICARE, SELFPAY ==
--- NOTE | 2024-03-18 14:40 | CRLHL7_ITS ---
For Patients: As a result of the Century Cures Act, medical imaging exams and procedure reports are released immediately into your electronic medical record. You may view this report before your referring provider. If you have questions, please contact your health care provider. BILATERAL SCREENING MAMMOGRAM WITH COMPUTER-AIDED DETECTION AND TOMOSYNTHESIS TECHNIQUE: CC and MLO views were obtained. These mammographic images have been obtained using full-field digital technique. These mammographic images were interpreted with the benefit of computer-aided detection. Breast tomosynthesis was used in this interpretation. COMPARISON FILM: 01/10/23, 06/25/21, 04/18/20. FINDINGS: There are scattered areas of fibroglandular density. IMPRESSION: There is no radiographic evidence for malignancy. ASSESSMENT: BI-RADS Category 2: Benign RECOMMENDATION: Routine screening mammogram in 1 year. A lay language report of this examination will be provided to the patient. MARCIAL ZAVALETA M.D. Diagnostic Radiologist [email or web address] Transcribed: 03/22/2024, 10:[address]/Dictated by: Marcial Zavaleta MD @ 03/19/2024 10:21:00 AM (Electronically Signed)
== END 2024-03-18 13:57 | disposition home or self-care (01) ==
LOC: MAMMO 13:58
PROVIDERS: PCP Nurse Practitioner Family; Visit Provider Nurse Practitioner Family
DX: Z12.31 Encounter for screening mammogram for malignant neoplasm of breast (principal)
CPT/HCPCS: 77063; 77067

== ENCOUNTER 2024-10-22 13:43 | Outpatient (CLI) | payer MEDICARE, SELFPAY | END 2024-10-22 13:44 | disposition home or self-care (01) | PROVIDERS: PCP Nurse Practitioner Family; Visit Provider Nurse Practitioner Family | DX: R06.00 Dyspnea, unspecified (principal); R10.31 Right lower quadrant pain; I44.4 Left anterior fascicular block; R53.83 Other fatigue; Z79.899 Other long term (current) drug therapy | CPT/HCPCS: 80053; 82306; 82728; 84443; 85025; 85651; 86038; 86140 ==

== ENCOUNTER 2024-11-12 17:03 | Emergency (ER) | payer MEDICARE, SELFPAY ==
--- OUTSIDE RECORDS SUMMARY | 2024-11-12 17:05 | XMS_ITS | Clinical Summary ---
Author Organization [facility] Address [facility]ly [facility] [place] [address] Care Team Providers Care Material Requisitioner Name Role Phone Pcp, No Primary Care Provider Unavailabl e Allergies Active Allergy Reactions Criticality Noted Date Comments Iodinated Contrast Media Had angiogram [place] [address] chest with contrast in 2007, withOUT reaction. Morphine 01/11/2010 Penicillins 02/27/2006 Sulfa (Sulfonamide Antibiotics) 02/27/2006 Vancomycin Hives 06/13/2010 Medications MULTIPLE VITAMIN TAB take 1 tablet by oral route once daily with food 0 02/07/20 07 Active ZYRTEC 10 MG TAB take 1 tablet (10 mg) by oral route once daily 0 0 10/27/19 08 Active Flaxseed Oil Oil As directed once daily. 1 Bottle 0 02/01/20 10 Active Calcium-Cholecalci ferol, D3, (CALCIUM 500 + D, D3,) 500-125 mg-unit Tab Take 1 Tab by mouth once daily. 0 02/01/20 10 Active cholecalciferol (VITAMIN D) 1,000 unit tablet Take 1 tablet by mouth once daily. 0 02/01/20 10 Active cyclobenzaprine (FLEXERIL) 10 mg tablet Take 1 tablet by mouth 3 times daily. 60 tablet 3 02/16/20 10 Active estradiol-levonorg estrel (CLIMARA PRO) 0.045-0.015 mg/24 hr patchIndications:P ost-menopause on HRT (hormone replacement therapy) Apply 1 Patch on dry, clean, hairless skin once weekly. 4 Patch prn 09/18/19 11 Active FINACEA 15 % topical gel APPLY TWICE A DAY TO FACE 50 g 5 03/01/20 11 Active omeprazole (PRILOSEC) 20 mg capsule Take 1 capsule by mouth. 60 capsule 11 03/14/19 12 Active acetaminophen-code ine, 300-30 mg, (TYLENOL #3) 300-30 mg tabletIndications: Costochondritis Take 1 tablet by mouth every 4 hours if needed for Pain. Max acetaminophen dose: 4000mg in 24 hrs. 20 tablet 0 03/15/19 12 Active ibuprofen (ADVIL; MOTRIN) 200 mg tablet Take 1 tablet by mouth 4 times daily if needed. 0 03/20/19 12 Active cyanocobalamin (VITAMIN B-12) 1,000 mcg tablet Take 1 tablet by mouth once daily. 90 tablet 3 03/20/19 12 Active amitriptyline (ELAVIL) 25 mg tabletIndications: Anxiety state, unspecified Take 2 tablets by mouth at bedtime. 120 tablet 5 04/01/19 12 Active SYNTHROID 112 mcg tabletIndications: Unspecified hypothyroidism TAKE ONE TABLET BY MOUTH ONCE DAILY BEFORE BREAKFAST 30 tablet 9 06/03/19 12 Active sertraline (ZOLOFT) 100 mg tabletIndications: Anxiety state, unspecified,Major depression, recurrent Take 1.5 tablets by mouth at bedtime. 60 tablet 0 06/28/19 12 Active traMADol (ULTRAM) 50 mg tablet Take 1 tablet by mouth every 6 hours if needed. 90 tablet prn 07/24/19 12 Active oxyCODONE (ROXICODONE) 5 mg immediate release tabletIndications: Right knee pain, unspecified chronicity Take 1 Tablet (5 mg) by mouth every 6 hours if needed for Pain. 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 Not on file Not on file Not on file Obstetrics History Para Term AB IAB SAB Ectopic Multiple Livin g Live Births 2 2 Date Outcome GA Total Labor Labor/2nd/3rd Weight Sex Type Anes PTL Amelia A1 A5 Name Clin Comments Kids age 32 and 29 (2009) Last Filed Vital Signs Vital Sign Reading Time Taken Comments Blood Pressure 117/87 04/29/2021 5:16 PM GUARD IMMIGRATION Pulse 69 04/29/2021 5:17 PM GUARD IMMIGRATION Temperature 36.8 C (98.3 F) 04/29/2021 12:53 PM GUARD IMMIGRATION Respiratory Rate 16 04/29/2021 5:17 PM GUARD IMMIGRATION Oxygen Saturation 95% 04/29/2021 5:17 PM GUARD IMMIGRATION Inhaled Oxygen Concentration - - Weight 99.2 kg (218 lb 12.8 oz) 022 12:53 PM GUARD IMMIGRATION Height 157.5 cm (5' 2) 04/29/2021 12:5 3 PM GUARD IMMIGRATION Body Mass Index 40.02 04/29/2021 12:53 PM GUARD IMMIGRATION Plan of Treatment Health Maintenance Due Date Last Done Comments Depression screening for age 12+ 1966 BMI (ht and wt on same day) for age 18+ 1972 Hepatitis C screening for ag e 18-79 1972 Pneumococcal series for age 50+ (1 of 1 - PCV) 2004 Zoster (shingles) series for age 50+ (1 of 2) 2004 Hepatitis B series for 19+ ( 2 of 3 - 19+ 3-dose series) 12/16/2008 11/18/2008 Mammogram for age 45-75 04/03/2012 04/03/19 12, 09/17/2010 (Declined), 04/05/2009, Additional history exists Colonoscopy through age 75 09/06/2014 09/06/2004 Lipids for age 45-75 01/31/2015 01/31/2010, 11/18/2008, 12/14/2007, Additional history exists Tetanus booster 04/05/2019 04/05/2009, 04/05/2009 DEXA/DXA scan for age 65+ 06/09/2019 10/24/2009, 12/2006 COVID-19 vaccine series ( season) 2024 12/22/2020, 2020, 05/18/2020 Influenza Vaccine (#1) 2024 01/08/2011, 2008 RSV vaccine for adults or (1 - 1-dose 75+ series) 2029 Procedures Procedure Name Priority Date/Time Associated Diagnosis Comments XR MAMMO BILAT DIAG FFDM ([place]) Routine 04/03/2011 11:15 AM GUARD IMMIGRATION Lump or mass in breast LIPID PANEL W REFLEX MEASURED LDL Routine 01/31/2010 8:30 AM GUARD IMMIGRATION Screening for cardiovascular condition SCAN-BONE DENSITOMETRY DEXA 10/24/2009 12:00 AM CDT from Last 3 Months or Most Recently Relevant to Health Maintenance Results * XR MAMMO BILAT DIAG FFDM (04/03/2011 11:15 AM GUARD IMMIGRATION) Anatomical Region Laterality Modality BREASTS, Breast Left, Breast Right Bilateral Mammography, Radiographic Imaging Impressions 04/03/2011 1:49 PM GUARD IMMIGRATION Postoperative bilateral reduction mammoplasty with new palpable mass that is rock hard in the central 12 o'clock position of the right breast. This corresponds radiographically and sonographically with a focal area of typical fat necrosis. Because of the rock hard palpable feature, consultation with the patient's reduction surgeon is recommended. Findings are discussed with Dr. Emani Reyna. Ten Hernandez MD 1159 1342/mdf Narrative 04/03/2011 1:49 PM GUARD IMMIGRATION DATE: 04/03/11 DIAGNOSTIC BILATERAL MAMMOGRAPHY (Diagnostic for right breast, screening image for the left breast) Interpretation assisted with computer-aided detection. Additional cone down, true lateral and CC projections of the right breast are obtained targeted to the area of the 12 o'clock position and palpable nodular mass. COMPARISON: Compared with previous preoperative images from 04/05/09. Also compared with 12/15 and 07/13. CLINICAL HISTORY: The patient reportedly had bilateral reduction mammoplasty in 02/16 and has just recently noted a very dense rock hard nodular density just above her nipple in the central 12-1 o'clock position of the right breast. FINDINGS: The patient's breasts are of average radiographic density. The left breast shows some mild radiographic evidence of reduction mammoplasty without evidence for malignancy. There are areas of loculated fatty density in the retro-areolar portion of the left breast which are not symptomatic. The right breast demonstrates a 1.4 cm nodular density which has a fatty centrum and is strongly suspicious for fat necrosis. Ultrasound of this location shows a noncystic relatively isoechoic mass measuring 1.2 x 1 cm in the 12 o'clock position just above the areolar margin where there is an operative scar. Radiographically loculated areas of fatty change are demonstrated [...] Emani Reyna. Ten Hernandez MD 1159 1342/bipin us Ten Barrera MD MAMMO Edited R esult - Final * LIPID PANEL W REFLEX MEASURED LDL (01/31/2010 8:30 AM GUARD IMMIGRATION) CHOLESTEROL,TOTAL 197 110 - 199 MG/DL [facility] TRIGLYCERIDES 59 40 - 149 MG/DL [facility] HDL CHOLESTEROL 72 >40 MG/DL [facility] LDL CHOLESTEROL 113 MG/DL [facility] Comment: Risk Catergory LDL Goal Range Vascular Disease and/or Diabetes < 100 mg/dL Multiple (2+) Risk Factors < 130 mg/dL 0 - 1 Risk Factor < 160 mg/dL CHOL/HDL RATIO 2.7 <4.5 [facility] PATIENT STATUS FASTING [facility] Blood specimen (specimen) BLOOD SPECIMEN / Unknown 01/31/2010 8:30 AM GUARD IMMIGRATION 01/31/2010 8:39 AM GUARD IMMIGRATION us Emani Reyna MD CHEMISTRY Final Re sult [address] [address] * SCAN-BONE DENSITOMETRY DEXA (10/24/2009 12:00 AM CDT) Anatomical Region Laterality Modality Other Narrative Procedure Note Scanner - 10/24/2009 12:00 AM CDT us Scanner OTHER Final Result from Last 3 Months or Most Recently Relevant to Health Maintenance Insurance [facility] [place] [id number] DO NOT USE THIS ACCT [place]ON [place] [id number] Care Teams Material Requisitioner Relationship Specialty Start Date End Date Pcp, Natividad Landry PCP - General 11/02/15
--- OUTSIDE RECORDS SUMMARY | 2024-11-12 17:06 | XMS_ITS | Clinical Summary ---
Author Organization [facility] Address [address] [place] [address] Care Team Providers Care Director Custom Name Role Phone Elsewhere, Pcp Primary Care Provider Unavailabl e Source Comments Patient records contain information from all sites at [facility]. For routine questions regarding patient records, call [phone] during business hours, M-F 8:00 AM - 5:00 PM Central Time. Record requests for emergency care only can be directed to [phone] at any time.[facility] Allergies Active Allergy Reactions Criticality Noted Date Comments Penicillins Hives (Reselect Reaction),Rash Medium 02/27/2006 Sulfa (Sulfonamide Antibiotics) GI intolerance 02/27/2006 Vancomycin Anaphylaxis,Hives (Reselect Reaction) High 02/19/2010 Medications DULoxetine (CYMBALTA) [address] capsule Take [...] oz pur e alcohol) 1-2 a year Comments Unknown Sex and Gender Information Value Date Recorded Sex Assigned at Not on file Legal Sex Female 9:08 AM FLOW MACHINE OPERATOR Gender Identity Not on file Sexual Orientation Not on file Last Filed Vital Signs Vital Sign Reading Time Taken Comments Blood Pressure 130/65 05/16/2023 2:30 PM FLOW MACHINE OPERATOR Pulse 66 05/16/2023 2:30 PM FLOW MACHINE OPERATOR Temperature 36.4 C (97.5 F) 05/16/2023 2:30 PM FLOW MACHINE OPERATOR Respiratory Rate 18 05/16/2023 2:30 PM FLOW MACHINE OPERATOR Oxygen Saturation 96% 05/16/2023 2:30 PM FLOW MACHINE OPERATOR Inhaled Oxygen Concentration - - Weight 91.3 kg (201 lb 4.5 oz) 05/16/2023 11:12 AM FLOW MACHINE OPERATOR Height 157.7 cm (5' 2.09) 11/13/2020 4:35 PM CD T Body Mass Index 36.71 11/13/2020 4:35 PM CDT Plan of Treatment Health Maintenance Due Date Last Done Comments Bone Density Scan (Osteoporosis Screen) 1955 CT Colonography 1955 Cologuard 1955 FIT 1955 Hepatitis C Screening 1955 Zoster Vaccines (1 of 2) 2004 Colonoscopy 09/05/2015 09/04/2005 Colorectal Cancer Screening 09/05/2015 Mammogram 04/18/2021 04/18/2020, 02/0 11/2020, 04/10/2018, Additional history exists Depression Screening (Annual PHQ-2) 03/10/2024 Fall Risk Screen (Annual) 03/10/2024 Thyroid Stimulating Hormone (TSH) test for thyroid function 05/15/2024 05/16/2023, 04/27/2020, 02/02/2019, Additional history exists COVID-19 Vaccine ( season) 2024 08/05/2023, 12/23/2022, 12/03/2021, Additional history exists Influenza Vaccine (#1) 2024 3, 12/03/2021, 12/06/2020, Additional history exists Fasting Glucose for Diabetes Screening 05/15/2026 05/16/2023, 11/13/2020, 12/24/2019, Additional history exists DTaP,Tdap,and Td Vaccines (3 - Td or Tdap) 02/17/2030 02/18/2020, 04/05/2009 Cervical/Vaginal Cancer Screening Discontinued 01/12/2018 Pneumococcal vaccine (50+ years) Completed 02/18/2020, 08/08/2014 IPV Vaccines Aged Out No longer eligi ble based on patient's age to complete this topic Procedures Procedure Name Priority Date/Time Associated Diagnosis Comments BASIC METABOLIC PANEL, S/P STAT 05/16/2023 11:34 AM FLOW MACHINE OPERATOR THYROID-STIMULATING HORMONE-SENSITIVE (S-TSH) STAT 05/16/2023 11:34 AM FLOW MACHINE OPERATOR from Last 3 Months or Most Recently Relevant to Health Maintenance Results * S-TSH (Thyroid-Stimulating Hormone - Sensitive) (05/16/2023 11:34 AM FLOW MACHINE OPERATOR) TSH, Sensitive 2.7 0.3 - 4.2 mIU/L 05/16/2023 12:43 PM FLOW MACHINE OPERATOR DTL Blood (Blood, Venous) 05/16/2023 11:34 AM FLOW MACHINE OPERATOR 05/16/2023 12:00 PM FLOW MACHINE OPERATOR Stacy Guzman P.A.-C., M.S. LAB BLOOD ADD-ON Rossana l Result [facility] [address] [place] [address], [facility] [address] [place] [address] * Basic Metabolic Panel (05/16/2023 11:34 AM FLOW MACHINE OPERATOR) Potassium, P 4.4 3.6 - 5.2 mmol/L 05/16/2023 12:00 PM FLOW MACHINE OPERATOR STMA Sodium, P 139 135 - 145 mmol/L 05/16/2023 12:00 PM FLOW MACHINE OPERATOR STMA Chloride, P 104 98 - 107 mmol/L 05/16/2023 12:00 PM FLOW MACHINE OPERATOR STMA Bicarbonate, P 27 22 - 29 mmol/L 05/16/2023 12:00 PM FLOW MACHINE OPERATOR STMA Anion Gap, P 8 7 - 15 05/16/2023 12:00 PM FLOW MACHINE OPERATOR STMA BUN (Blood Urea Nitrogen), P 19 6 - 21 mg/dL 05/16/2023 12:00 PM FLOW MACHINE OPERATOR STMA Creatinine 0.86 0.59 - 1.04 mg/dL 05/16/2023 12:00 PM FLOW MACHINE OPERATOR STMA Estimated GFR (eGFR) 74 >=60 mL/min/BSA 05/16/2023 12:00 PM FLOW MACHINE OPERATOR STMA Comment: Estimated GFR calculated using the 2020 CKD_EPI creatinine equation. Calcium, Total, P 9.4 8.8 - 10.2 mg/dL 05/16/2023 12:00 PM FLOW MACHINE OPERATOR STMA Glucose, P 91 70 - 140 mg/dL 05/16/2023 12:00 PM FLOW MACHINE OPERATOR STMA Blood (Blood, Venous) 05/16/2023 11:34 AM FLOW MACHINE OPERATOR 05/16/2023 11:39 AM FLOW MACHINE OPERATOR Stacy Guzman P.A.-C., M.S. LAB BLOOD ADD-ON Rossana l Result [facility] [address] [place] [address], [facility] [address] [place] [address] from Last 3 Months or Most Recently Relevant to Health Maintenance Insurance [employer] Care Teams Director Custom Relationship Specialty Start Date End Date Elsewhere, Pcp PCP - General Internal Medicine 05/16/23
--- OUTSIDE RECORDS SUMMARY | 2024-11-12 17:06 | XMS_ITS | Encounter Summary ---
Author Organization [facility] er Address [address] [place] [address] Care Team Providers Care Network Support Specialist Name Role Phone Rona Estrella APRN, CNA GNA Primary Care Provi hernán Encounter Details Date Type Department Care Team (Late st Contact Info) Description 07/12/2021 Telephone [facility] Medical[facility]Surgical [address] [place] [address] Ligia Tilley RN [address] [place] [address] Social History Tobacco Use Types [...] than three times a week 01/12/2018 Attends [employer]orationist Services More than 4 times per year [...] have received? 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
--- OUTSIDE RECORDS SUMMARY | 2024-11-12 17:06 | XMS_ITS | Encounter Summary ---
Author Organization [facility] er Address [address] [place] [address] Care Team Providers Care Race And Sports Book Writer Name Role Phone Rona Estrella APRN, BAND BIAS MACHINE OPERATOR Primary Care Provi hernán Encounter Details Date Type Department Care Team (Late st Contact Info) Description 04/21/2018 Refill [place] [address] [place] [address] Rona Estrella, YARN WRAPPER, BAND BIAS MACHINE OPERATOR [address] [id number] Fibromyalgia Social History Tobacco Use Types Packs/Day [...] than three times a week 01/12/2018 Attends [employer]af[employer] Services More than 4 times per year [...] in the Last Year Never true 01/12/2018 Comments Unknown Sex and Gender Information Value Date Recorded Sex Assigned at Female 07/05/2021 11:48 AM CDT Legal Sex Female 9:19 PM CDT Gender Identity Female 07/05/2021 11:48 AM CDT Sexual Orientation Straight 07/05/2021 11 :48 AM CDT Occupation Industry Job Start Date Job End Date retired Not on file Not on file Not on file documented as of this encounter Functional Status documented as of this encounter Miscellaneous Notes * Telephone Encounter - Sary Alvarez MA - 04/22/2018 3:03 PM CST Noted RIBUTION DISTRICT SUPERVISOR * Telephone Encounter - Shreya Estrada - 04/22/2018 2:42 PM CST Pt returned call to clinic. Message from Zenon Estrella regarding Rx was relayed to Pt. RIBUTION DISTRICT SUPERVISOR * Telephone Encounter - Rona Estrella APRN, CNP - 04/21/2018 1:35 PM DISTRIBUTION DISTRICT SUPERVISOR Please contact the patient and let her know this is been done per her request. Thanks Zenon RIBUTION DISTRICT SUPERVISOR * Telephone Encounter - Sary Alvarez MA - 04/21/2018 1:16 PM CST I have pended a medication refill for your review. RIBUTION DISTRICT SUPERVISOR * Telephone Encounter - Lucia North - 04/21/2018 12:18 PM CST The patient would like her dulexatine 60 mg called to [facility] and a call back when completed.She has done the same thing with her other Rxs and would like this one switched over as well. RIBUTION DISTRICT SUPERVISOR documented in this encounter Plan of Treatment Not on file documented as of this encounter Visit Diagnoses Diagnosis Fibromyalgia Unspecified myalgia and myositis documented in this encounter Additional Health Concerns Infection Onset Date Last Indicated Resolved Time COVID-19 Rule Out 11/18/2019 11/18/2019 11/19/2019 12:15 PM CDT COVID-19 Rule Out 02/27/2021 02/27/2021 02/28/2021 12:39 AM DISTRIBUTION DISTRICT SUPERVISOR COVID-19 Rule Out 07/04/2021 07/04/2021 07/05/2021 9:36 PM CDT COVID-19 Rule Out 06/13/2023 06/13/2023 06/13/2023 10:42 AM CDT COVID-19 Rule Out 10/18/2023 10/18/2023 10/18/2023 11:25 AM CDT documented as of this encounter Care Teams Race And Sports Book Writer Relationship Specialty Start Date End Date Rona Estrella, YARN WRAPPER, BAND BIAS MACHINE OPERATOR [address] [place] [address] PCP - General Family Medicine 11/24/23 documented as of this encounter
--- OUTSIDE RECORDS SUMMARY | 2024-11-12 17:06 | XMS_ITS | Encounter Summary ---
Author Organization [facility] er Address [address] [place] [address] Care Team Providers Care Emergency Communications Operator Name Role Phone Rona Estrella APRN, ASSISTANT INVENTORY MANAGER Primary Care Provi hernán Encounter Details Date Type Department Care Team (Late st Contact Info) Description 01/10/[address] [id number] Ruchi Bazzi MD Social History Tobacco Use [...] than three times a week 01/12/2018 Attends [employer]-Day Services More than 4 times per year [...] Rule Out 02/27/2021 02/27/2021 02/28/2021 12:39 AM RESIDENTIAL PROGRAM COORDINATOR COVID-19 Rule Out 07/04/2021 07/04/2021 07/05/2021 9:36 PM CDT COVID-19 Rule Out 06/13/2023 06/13/2023 06/13/2023 10:42 AM CDT COVID-19 Rule Out 10/18/2023 10/18/2023 10/18/2023 11:25 AM CDT documented as of this encounter Care Teams Emergency Communications Operator Relationship Specialty Start Date End Date Rona Estrella, SQUEEGEE FINISHER, ASSISTANT INVENTORY MANAGER [address] [place] [address] PCP - General Family Medicine 11/24/23 documented as of this encounter
--- OUTSIDE RECORDS SUMMARY | 2024-11-12 17:06 | XMS_ITS | Encounter Summary ---
Author Organization [facility] er Address [address] [place] [address] Care Team Providers Care Emd Special Education Teacher Name Role Phone Rona Estrella APRN, REMOTE MEDICAL CODER Primary Care Provi hernán Reason for Visit * Reason Onset Date Comments Med Refill 02/01/2020 Encounter Details Date Type Department Care Team (Late st Contact Info) Description 02/01/2020 Refill [place] [address] [place] [address] Ruchi Bazzi MD Fibromyalgia Social History Tobacco [...] than three times a week 01/12/2018 Attends Orthodoxy Services More than 4 times per year [...] COVID-19? No / Unsure 01/15/2020 12:03 PM BLUE LEATHER SORTER documented as of this encounter Miscellaneous Notes * Telephone Encounter - Mariaan Monge RN - 02/01/2020 4:00 PM BLUE LEATHER SORTER Pt requesting Amtriptyline 50mg refilled to [facility] LEATHER SORTER documented in this encounter Plan of Treatment Not on file documented as of this encounter Visit Diagnoses Diagnosis Fibromyalgia Unspecified myalgia and myositis documented in this encounter Additional Health Concerns Infection Onset Date Last Indicated Resolved Time COVID-19 Rule Out 02/27/2021 02/27/2021 02/28/2021 12:39 AM BLUE LEATHER SORTER COVID-19 Rule Out 07/04/2021 07/04/2021 07/05/2021 9:36 PM CDT COVID-19 Rule Out 06/13/2023 06/13/2023 06/13/2023 10:42 AM CDT COVID-19 Rule Out 10/18/2023 10/18/2023 10/18/2023 11:25 AM CDT documented as of this encounter Care Teams Emd Special Education Teacher Relationship Specialty Start Date End Date Rona Estrella, TEST TECHNICIAN, REMOTE MEDICAL CODER [address] [place] [address] PCP - General Family Medicine 11/24/23 documented as of this encounter
--- OUTSIDE RECORDS SUMMARY | 2024-11-12 17:06 | XMS_ITS | Clinical Summary ---
Author Organization [facility] er Address [address] [place] [address] Care Team Providers Care Tennis Centre Manager Name Role Phone Rona Estrella APRN, CAUSTIC ROOM ATTENDANT Primary Care Provi hernán Allergies Active Allergy Reactions Criticality Noted Date Comments Metronidazole 01/15/2020 GI upset Iodinated Contrast Media Had angiogram [place] [address] chest with contrast in 2007, withOUT reaction. Morphine Nausea And Vomiting Low 01/11/2010 Intolerance Penicillins Rash Medium 02/27/2006 Sulfa Antibiotics Nausea Only 02/27/2006 Vancomycin Anaphylaxis,Hives High 02/19/2010 Medications esomeprazole (NEXIUM) [address] capsule Take 1 capsule (20 mg total) by mouth 1 (one) time each day before breakfast Do not open capsule. Active Multiple Vitamins-Mineral s (Daily Multivitamin) capsule Take 1 mg by mouth 2 (two) times a day Melaluca brand multivitamin packets containing more than 1 pill Active aspirin 81 MG EC tablet Take 81 mg by mouth 1 (one) time each day Active psyllium (METAMUCIL) 58.12 % packet Take 1 packet by mouth 3 (three) times a day Constipation Active DULoxetine (CYMBALTA) [address] capsuleIndicatio ns:Fibromyalgia TAKE 1 CAPSULE BY MOUTH ONCE DAILY 90 capsule 3 1 Active levothyroxine (Euthyrox) 112 MCG tabletIndication s:Hypothyroidism , unspecified type Take 1 tablet (112 mcg total) by mouth 1 (one) time each day 90 tablet 3 1 Active gabapentin (NEURONTIN) 300 MG capsuleIndicatio ns:Neck pain,Fibromyalgi a Take 1 capsule (300 mg total) by mouth every night 90 capsule 3 1 Active Additional Information Patient taking differently: 200 mgOral Nightly, Reported on 10/18/2023 acetaminophen (TYLENOL 8 HOUR) 650 MG 8 hr tablet Take 2 tablets (1,300 mg total) by mouth every 8 hours Active verapamil SR (CALAN-SR) 180 MG CR tabletIndication s:Essential hypertension TAKE 1 TABLET TWICE DAILY (DO NOT CRUSH OR CHEW) 180 tablet 3 1 Active NON FORMULARYIndicat ions:1:1 CBD: THC cannabis product 2.5 mg THC, 2.5mg CBD per tablet 1.5 tablets 1 (one) time each day in the morning Active NON FORMULARYIndicat ions:1:6 CBD: THC cannabis product 4.3 mg THC,0.7mg CBD per tablet 1.5 tablets at bed time Active celecoxib (CeleBREX) 100 MG capsule Take 1 capsule (100 mg total) by mouth 2 (two) times a day 2 Active atorvastatin (LIPITOR) 10 MG tablet 2 Active Linzess 290 MCG capsule 3 Active cyclobenzaprine (FLEXERIL) 5 MG tabletIndication s:Acute buttock pain Take 1 tablet (5 mg total) by mouth 3 (three) times a day if needed for muscle spasms for up to 7 days 21 tablet 3 Active albuterol HFA (PROVENTIL HFA;VENTOLIN HFA) 108 (90 Base) MCG/ACT inhalerIndicatio ns:Bronchospasti c Disease Inhale 2 puffs every 6 (six) hours if needed for shortness of breath (cough) 18 g 4 Active azithromycin (Zithromax Z-Ernesto) 250 MG tabletIndication s:Bronchitis Take 2 tablets the first day, then 1 tablet daily for 4 days. 6 tablet 4 Active Active Problems Problem Noted Date Diagnosed [...] History of total right knee replacement 07/26/19 22 KAJAL (obstructive sleep apnea) 04/06/2020 Vitamin D deficiency 01/25/2020 Overview (01/25/2020): VITAMIN D TOTAL Date Value Range Status 01/31/10 28.2* 30.0-80.0 (ng/mL) Final 04/05/09 24.4* 30.0-80.0 (ng/mL) Final 02/02/2010 rec 2,000 IU daily 04/05/09 VIT D-25OH = 24.4 - repl 50K IU /wk x12 wks, then nupur Essential hypertension 04/27/2018 Class 3 severe obesity with body mass index (BMI) of 40.0 to 44.9 in adult 04/27/2018 Mixed hyperlipidemia 01/10/2017 Overview (01/25/2020): 01/25/20 ASCVD 10yr risk 5.3% using lipid panel from 2019. Started on asa 81mg, lipitor 20mg nightly. Fibromyalgia 12/09/2014 Hypertrophy of breast 11/21/2009 Osteoarthritis 07/05/2008 Otosclerosis, unspecified 08/22/2006 Overview (01/25/2020): Overview: left ear - has a hearing aid Allergic rhinitis, cause unspecified 08/21/2006 Esophageal reflux 08/21/2006 Post-menopause on HRT (hormone replacement thera py) 08/21/2006 Overview (01/25/2020): Overview: 07/09/2010 restart HRT (estratest + Provera) LMP 2006 - HRT 2008 - 2009 Anxiety state 03/31/2006 Unspecified hypothyroidism 03/31/2006 Overview (01/25/2020): Overview: 03/14/2011 TSH 1.50 - no chg 07/09/10 TSH 0.74 - no chg 01/31/10 TSH 4.29 - incr to 112mcg 04/06/09 TSH 0.89 - no chg 11/18/08 TSH 2.12 - no chg Immunizations Immunization Administration Dates Next Due COVID-19, mRNA, LNP-S, [...] than three times a week 01/12/2018 Attends Protestant Services More than 4 times per year [...] file Not on file Not on file Last Filed Vital Signs Vital Sign Reading Time Taken Comments Blood Pressure 120/69 11/24/2023 1:32 PM CDT Pulse 73 11/24/2023 1:32 PM CDT Temperature 36.4 C (97.5 F) 11/24/2023 1:32 PM CDT Respiratory Rate 20 11/24/2023 1:32 PM CDT [...] (1 of 2) 2004 Mammogram 04/18/2021 04/18/2020, 02/0 03/2018, 02/10/2017, Additional history exists Colonoscopy 02/22/2024 02/21/2014 Colorectal Cancer Screening 02/22/2024 Fall Risk Performed 06/12/2024 06/13/2023 COVID-19 Vaccine ( season) 2024 08/05/2023, 12/23/2022, 12/03/2021, Additional history exists Influenza Vaccine (#1) 2024 , 12/23/2022, 12/03/2021, Additional history exists DTaP,Tdap,and Td Vaccines (4 - Td or Tdap) 02/17/2030 02/18/2020, 02/18/2020, 04/05/2009 Pap Smear Discontinued 01/12/2018 Pneumococcal Vaccine: 50+ Years Completed 02/18/2020, 08/08/2014 HPV Vaccines Aged Out No longer eligi ble based on patient's age to complete this topic Medical Devices Implanted Type Area Loan Servicing Specialist Device Identifier Shelf Expiration Date Model / Serial / Lot Depuy/Cmw 2g - [id number] Implanted:Qty: 1 on 07/10/2021 by Ghassan Castillo MD at [facility] Right: Knee Depuy [employer] 09/07/2023 [id number] / / [id number] Attune Femoral Porocoat Posterior Stabilized Size 5 Right Cementless Implanted:Qty: 1 on 07/10/2021 by Ghassan Castillo MD at [facility] Right: Knee 01/07/2030 [id number] / / [id number] Attune Medial Oralia Pat 35mm - [id number] Implanted:Qty: 1 on 07/10/2021 by Ghassan Castillo MD at [facility] Right: Knee Depuy [employer] 02/06/2026 [id number] / / [id number] Attune Rp Tib Base Sz 5 Por - [id number] Implanted:Qty: 1 on 07/10/2021 by Ghassan Castillo MD at [facility] Right: Knee Depuy [employer] 01/07/2031 [id number] / / [id number] Attune Ps Rp Insrt Sz5 5mm - [id number] Implanted:Qty: 1 on 07/10/2021 by Ghassan Castillo MD at [facility] Right: Knee Depuy [employer] 10/07/2025 [id number] / / [id number] Total Knee Depuy - [id number] Implanted:Qty: 1 on 07/10/2021 by Ghassan Castillo MD at [facility] Right: Knee Depuy [employer] [id number] / / Procedures Procedure Name Priority Date/Time Associated Diagnosis Comments MAMMOGRAM BREAST SCREENING TOMOSYNTHESIS BILATERAL Routine 04/18/2020 2:50 PM TAILING HAND Encounter for screening mammogram for malignant neoplasm of breast PAP TEST Routine 01/12/2018 2:31 PM TAILING HAND Screening for cervical cancer from Last 3 Months or Most Recently Relevant to Health Maintenance Results * Mammogram breast screening tomosynthesis bilateral (04/18/2020 2:50 PM TAILING HAND) Anatomical Region Laterality Modality Breast Bilateral Mammography 04/18/2020 2:50 PM TAILING HAND Impressions 04/18/2020 3:39 PM TAILING HAND IMPRESSION: BILATERAL BREASTS Negative; no evidence of [...] of this study.- Narrative 04/18/2020 3:39 PM TAILING HAND EXAM DESCRIPTION: MAMMOGRAM BILATERAL SCREENING DIGITAL WITH [...] used during the interpretation of this study.- us Ruchi Bazzi MD IMG BI PROCEDURES Final Res ult * Pap smear (01/12/2018 2:31 PM TAILING HAND) Sure Path PAP, screen 01/12/2018 2:31 PM TAILING HAND 01/13/2018 3:31 PM TAILING HAND Narrative [facility] - 01/16/2018 9:36 AM [id number] [place] [address] Patient: YVONNE GARCIAS John Procedure: 01/12/2018 14:31 /Age/Sex: 1955, 62 Y, F Received: 01/13/2018 15:31 Billin Patient Location: [facility] OFFICE Ordered by: RONA ESTRELLA APRN, CNP Attending: RONA ESTRELLA APRN, CNP COLLECTION SYSTEMS TECHNICIAN CYTOLOGY FINAL REPORT SPECIMEN: (A) SURE PATH PAP, SCREEN SPECIMEN DESCRIPTION: Vaginal Received cloudy specimen in SurePath vial. CLINICAL INFORMATION: Menopause: Y Prev.normal: 2011 SPECIMEN ADEQUACY: Satisfactory for Evaluation GENERAL CATEGORIZATION: [...] By: Signed By: TAM MAE(ASCP) <Sign Out Signature> Reported: 01/16/2018 Page 1 of 1 us Rona Estrella APRN, CNP LAB CYTOLOGY ORDERA BLES Final Result [facility] [address] [place] [address] from Last 3 Months or Most Recently Relevant to Health Maintenance Insurance [facility] MEDICARE ADVANTAGE [facility] WC Member Subscriber Plan / Payer (Ef fective 2023-Present) Name:Yvonne Garcias Relation to Subscriber:Employee Name:[employer] (Work) Address: [address] [place] [id number] Payer ID:[id number] Group ID:Not on file Type:Not on file Address: [address] [place] [id number] Advance Directives For more information, please contact: [phone] * Full Code (Latest Code Status on File) Date Activated Date Inactivated Comments 07/10/2021 1:38 PM 07/11/2021 12:43 PM Care Teams Tennis Centre Manager Relationship Specialty Start Date End Date Rona Estrella, LEGAL SECRETARY RECEPTIONIST, CAUSTIC ROOM ATTENDANT [address] [facility] [place] [address] PCP - General Family Medicine 11/24/23
[2024-11-12 17:10] VITALS: BP 126/74; PULSE 78; RESP 18; TEMP 36.6; O2SAT 97; BMI 38.4
--- NOTE | 2024-11-12 17:25 | ED_ITS ---
HPI - General Adult General Chief complaint: Eye Problems Stated complaint: Detached retina in right eye Time Seen by Provider: 11/12/24 17:08 History of Present Illness HPI narrative: Patient reports flecks in eyes. Was seen at [facility] 6 months ago and was told she may be 'headed towards a detached retina . Today around 3:30 she noticed oil slick like irregularly shaped spot in her right eye. This has grown a bit over time. 69-year-old woman presenting to the emergency department with concern of possible retinal detachment. About 6 months ago was seen with flecks in her eyes at a [facility]. There was some question about evolving retinal detachment or that she might have that eventually. This afternoon she describes something like dropping oil on water in her vision; an oil slick. She is not having a blackness of vision. Does look like she is looking through a hazy screen though. The area has expanded. She does have a little bit of a right-sided headache. No trauma. Blood pressure 126/74 on triage. Visual acuity with right eye 20/70 and left eye 20/30. She does wear eyeglasses. Related Data Home Medications ?Medication ?Instructions ?Recorded ?Confirmed acetaminophen 500 mg capsule 500 mg PO Q6H PRN 2 10/22/24 Previous Rx's ?Medication ?Instructions ?Recorded atorvastatin 10 mg tablet 10 mg PO QDAY 90 days #90 ta bs 11/11/23 celecoxib 100 mg capsule 100 mg PO BID #180 caps 05/31 duloxetine 60 mg capsule,delayed 60 mg PO QDAY #90 cap s 11/11/23 release levothyroxine 112 mcg tablet 112 mcg PO QDAY 90 days # 90 tabs 11/11/23 verapamil 180 mg tablet,extended 180 mg PO BID #180 ta bs 11/11/23 release esomeprazole magnesium 20 mg 20 mg PO QDAY 90 days #90 caps 11/21/23 capsule,delayed release (Nexium) escitalopram oxalate 10 mg tablet 10 mg PO QDAY #90 ta bs 01/08/24 (Lexapro) gabapentin 100 mg capsule 300 mg (3 x 100 mg) PO QHS # 270 02/11/24 caps sennosides 8.6 mg-docusate sodium 1 tab-cap PO BID #18 0 tabs 03/18/24 50 mg tablet (Senna Plus) linaclotide 290 mcg capsule 290 mcg PO QDAY #90 caps 0 06/21/24 (Linzess) duloxetine 30 mg capsule,delayed 30 mg PO QDAY #90 cap s 11/05/24 release Allergies Allergy/AdvReac Type Severity Reaction Status Date / Time Penicillins Allergy Unknown Verified 11/12/24 17:09 vancomycin Allergy Unknown Verified 11/12/24 17:09 Review of Systems Status of ROS: Reports: 6 or more systems reviewed and unremarkable except as noted in History and below [facility] Medical History Kidney stones ?N20.0 - Calculus of kidney (ICD-10) Gastroesophageal reflux disease ?K21.9 - Gastro-esophageal reflux disease without esophagitis (ICD-10) Osteoarthritis ?M19.90 - Unspecified osteoarthritis, unspecified site (ICD-10) Sleep apnea ?G47.30 - Sleep apnea, unspecified (ICD-10) Osteoarthritis of both knees ?M17.0 - Bilateral primary osteoarthritis of knee (ICD-10) Nonexertional chest pain ?R07.89 - Other chest pain (ICD-10) Hypothyroidism ?E03.9 - Hypothyroidism, unspecified (ICD-10) Hypertension ?I10 - Essential (primary) hypertension (ICD-10) Hyperlipidemia ?E78.5 - Hyperlipidemia, unspecified (ICD-10) History of vitamin D deficiency ?Z86.39 - Personal history of other endocrine, nutritional and metabolic disease (ICD-10) History of stress test ?Z92.89 - Personal history of other medical treatment (ICD-10) History of shortness of breath ?Z87.898 - Personal history of other specified conditions (ICD-10) History of ovarian cyst ?Z87.42 - Personal history of other diseases of the female genital tract (ICD-10) History of osteoporosis ?Z87.39 - Personal history of other diseases of the musculoskeletal system and connective tissue (ICD-10) History of hearing loss ?Z86.69 - Personal history of other diseases of the nervous system and sense organs (ICD-10) History of falling ?Z91.81 - History of falling (ICD-10) History of echocardiography ?Z92.89 - Personal history of other medical treatment (ICD-10) History of chronic constipation ?Z87.19 - Personal history of other diseases of the digestive system (ICD-10) Fibromyalgia ?M79.7 - Fibromyalgia (ICD-10) Dry eyes ?H04.123 - Dry eye syndrome of bilateral lacrimal glands (ICD-10) Depression ?F32.A - Depression, unspecified (ICD-10) Cystocele Chronic pain ?G89.29 - Other chronic pain (ICD-10) Chronic neck pain ?M54.2 - Cervicalgia (ICD-10) ?G89.29 - Other chronic pain (ICD-10) Arthralgia ?M25.50 - Pain in unspecified joint (ICD-10) Anxiety ?F41.9 - Anxiety disorder, unspecified (ICD-10) Surgical History History of tonsillectomy ?Z90.89 - Acquired absence of other organs (ICD-10) History of cholecystectomy ?Z90.49 - Acquired absence of other specified parts of digestive tract (ICD- 10) History of bilateral breast reduction surgery ?Z98.890 - Other specified postprocedural states (ICD-10) History of arthroscopic knee surgery ?Z98.890 - Other specified postprocedural states (ICD-10) History of adenoidectomy ?Z90.89 - Acquired absence of other organs (ICD-10) Family History Brother Alzheimers disease Down syndrome Father Alzheimers disease Mother Alzheimers disease Cancer Colon polyp Son Asthma Sister COPD (chronic obstructive pulmonary disease) Paternal Grandmother Dementia Maternal Grandfather Stroke Maternal Grandmother Stroke Other Diabetes Heart disease Social History Narrative: . Works at [employer]. No formal exercise. No illicit drug use. Non-smoker. What is your current living situation?: I presently have a place to live Problems where you live: pests, such as bugs, ants, or mice In the past 12 months, utilities in danger of being shut off: no In past 12 months, lack of transportation kept you from medical appts, meetings, work, or getting things needed for daily living: no In the past 12 mos, have been you worried that your food would run out before you had money to buy more?: never true In the past 12 mos, the food you bought just didn't last and you didn't have money to buy more?: never true Smoking Status: Never smoker Do you use any of these nicotine containing products: None Second hand tobacco smoke exposure: No How often do you have a drink containing alcohol: never How often do you have six or more drinks on one occasion: Never AUDIT-C Alcohol total score: 0 Non-prescribed substance use: denies use How often does anyone, including family, friends and others, physically hurt you : never How often does anyone, including family, friends and others, insult or talk down to you: never How often does anyone, including family, friends and others, threaten you with harm: never How often does anyone, including family, friends and others, scream or curse at you: never service: No Health Related Social Needs: Inadequate housing (Z59.1) Exam Narrative: Exam Narrative: Pleasant. NAD. Squinting her right eye. Pupils are 3 mm and equal and appropriately reactive. Extraocular movements are full. Head is atraumatic. I do not appreciate any swelling about the eye. The anterior chamber appears to be clear bilaterally. Ophthalmoscope exam reveals in the right eye some shredded black ribbons at the retina or possibly in the vitreous. She is not particularly photophobic. Tolerates this quite well. Const: Vital Signs, click to edit/add: Vital Signs - 24 hr 11/12/24 17:10 Temperature 98 F Pulse Rate [Pulse Oximeter] 78 Respiratory Rate 18 Blood Pressure [Ri ght Upper Arm] 126/74 Pulse Oximetry 97 Oxygen Delivery Me thod Room Air Documenting provider has reviewed patient's vital signs: yes Course Vital Signs Vital signs: Initial Vital Signs Temperature 98 F 11/12/24 17:10 Temperature Source Temporal Artery Scan 11/12/24 17:10 Pulse Rate 78 11/12/24 17:10 Respiratory Rate 18 11/12/24 17:10 Blood Pressure 126/74 11/12/24 17:10 Blood Pressure Mean 91 11/12/24 17:10 Pulse Oximetry 97 11/12/24 17:10 Oxygen Delivery Method Room Air 11/12/24 17:10 Vital Signs Temperature 98 F 11/12/24 17:10 Pulse Rate 78 11/12/24 17:10 Respiratory Rate 18 11/12/24 17:10 Blood Pressure 126/74 11/12/24 17:10 Pulse Oximetry 97 11/12/24 17:10 Oxygen Delivery Method Room Air 11/12/24 17:10 Temperature 98 F 11/12/24 17:10 Pulse Rate 78 11/12/24 17:10 Respiratory Rate 18 11/12/24 17:10 Blood Pressure 126/74 11/12/24 17:10 Pulse Oximetry 97 11/12/24 17:10 Oxygen Delivery Method Room Air 11/12/24 17:10 Medical Decision Making MDM Narrative Medical decision making narrative: My concern here is possible retinal tear vitreous hemorrhage. Less likely retinal detachment? I did call to local eye clinic and spoke to of Optometry. Unfortunately they do not have surgical services at this time and would recommend evaluation somewhere where that could potentially be done if necessary. Ms. Garcias lives 10 minutes from [place] and her preference this Friday evening would be to go that direction. No other interventions appear necessary at this time. I did reach out to [facility] and spoke to ophthalmology resident Matthew who would concur with need for dilated eye exam and possibly further intervention and recommending being evaluated in their emergency department since we are unable to accomplish that locally. Anticipated transfer by private car See patient discharge plan for further discussion Please go directly to [facility]'s emergency department. They are expecting you. Dr. Dev Still is accepting Medical Records Medical records reviewed: Yes I reviewed the patient's medical records Discharge Plan Discharge Clinical Impression: Retinal tear, Vitreous hemorrhage Patient Disposition: Home w/ Parent or Adult Condition: Stable Additional Instructions: Please go directly to [facility] emergency department. They are expecting you. Dr. Dev Still is accepting Prescriptions: No Action acetaminophen 500 mg capsule 500 mg PO Q6H PRN atorvastatin 10 mg tablet 10 mg PO QDAY 90 Days Qty: 90 3RF celecoxib 100 mg capsule 100 mg PO BID Qty: 180 3RF levothyroxine 112 mcg tablet 112 mcg PO QDAY 90 Days Qty: 90 3RF verapamil 180 mg tablet extended release 180 mg PO BID Qty: 180 3RF duloxetine 60 mg capsule,delayed release(DR/EC) 60 mg PO QDAY Qty: 90 3RF Rx Instructions: 60 mg orally in addition to 30 mg daily; total 90 mg daily esomeprazole magnesium [Nexium] 20 mg capsule,delayed release(DR/EC) 20 mg PO QDAY 90 Days Qty: 90 3RF escitalopram oxalate [Lexapro] 10 mg tablet 10 mg PO QDAY Qty: 90 3RF sennosides-docusate sodium [Senna Plus] 8.6-50 mg tablet 1 tab-cap PO BID Qty: 180 3RF gabapentin 100 mg capsule 300 mg PO QHS Qty: 270 3RF Linzess 290 mcg capsule 290 mcg PO QDAY Qty: 90 3RF duloxetine 30 mg capsule,delayed release(DR/EC) 30 mg PO QDAY Qty: 90 0RF Rx Instructions: 60 mg orally in addition to 30 mg daily; total 90 mg daily Follow Up/Referrals: Rona Estrella, SALES STOCK ASSOCIATE, VP ACCOUNT DIRECTOR [Primary Care Provider, Family Practice] [facility] Alone [facility]: [facility] Info Instructions
--- NOTE | 2024-11-12 19:30 | ED.NURSE ---
Patient will be driving by private car to [facility]. Authorization for transfer completed and patient sent with this and nursing and MD note.
== END 2024-11-12 19:38 | disposition home or self-care (01) ==
PROVIDERS: Emergency Provider Family Medicine; PCP Nurse Practitioner Family
DX: H33.001 Unspecified retinal detachment with retinal break, right eye (principal); H43.11 Vitreous hemorrhage, right eye
CPT/HCPCS: 99284

== ENCOUNTER 2024-11-25 10:16 | Outpatient (CLI) | payer MEDICARE, SELFPAY | END 2024-11-25 10:17 | disposition home or self-care (01) | LOC: KYNREF 10:18 | PROVIDERS: PCP Nurse Practitioner Family; Visit Provider Nurse Practitioner Family | DX: E78.5 Hyperlipidemia, unspecified (principal) | CPT/HCPCS: 80061 ==